=== PATIENT | female | born 1955 | race Caucasian/White ===

== ENCOUNTER 2016-09-11 20:29 | Inpatient (IN) ==
[2016-09-11 22:21] LABS: INR 1.1; Prothrombin Time 12.1 Seconds (9.4-12.1)
[2016-09-11 22:23] LABS: Activated Partial Thrombo Time 24.5 Seconds (26.0-36.0)
[2016-09-11 22:26] LABS: Basophils % 0.3 %; Calcium 10.6 mg/dL (8.6-10.8); Eosinophils # 0.1 K/mcL (0.0-0.6); Hematocrit 36.6 % (35.3-44.9); Hemoglobin 11.8 g/dL (11.5-15.4); Immature Granulocytes % 0.5 % (0-4); Lymphocytes # 0.7 K/mcL (0.6-4.6); Lymphocytes % 7.7 %; Mean Corpuscular HGB Conc 32.2 g/dL (31.6-35.5); Mean Corpuscular Hemoglobin 33.3 pg (28.0-33.3); Mean Corpuscular Volume 103.4 fL (83.0-100.0); Mean Platelet Volume 9.3 fL (9.4-12.4); Monocytes # 0.7 K/mcL (0.0-1.3); Monocytes % 7.8 %; Neutrophils # 7.6 K/mcL (1.6-8.9); Platelet Count 185 K/mcL (140-400); Potassium 4.3 mEq/L (3.5-4.5); Red Blood Count 3.54 M/mcL (3.82-4.97); Red Cell Distribution Width 17.6 % (11.5-14.5); Segmented Neutrophils % 82.7 %
[2016-09-12] MEDS ORDERED: *HR* Heparin 5,000 UNIT/ML VIAL IVP ONE (01:01)
[2016-09-12] MEDS ORDERED: *HR* Heparin 5,000 UNIT/ML VIAL IVP PRN (01:01)
[2016-09-12 01:48] LABS: Bilirubin,Urine Small (Negative); Blood,Urine Large (Negative); Clarity,Urine Turbid (Clear); Color,Urine Yellow (Yellow); Glucose,Urine (UA) Normal (Normal); Ketones,Urine Negative (Negative); Leukocyte Esterase,Urine Large (Negative); Nitrite,Urine Negative (Negative); PH,Urine 6.5 pH Units (5.0-8.0); Protein,Urine 100 mg/dL (Neg-Trace); Specific Gravity,Urine > 1.030 (1.010-1.025); Urobilinogen,Urine Normal (Normal)
[2016-09-12 01:51] LABS: Bacteria,Urine Moderate per hpf (None-Few); Hyaline Casts,Urine None Seen per lpf (None-Few); RBC,Urine TNTC per hpf (0-3); Squamous Epithelial Cell,Urine Many per lpf (None-Few); WBC,Urine TNTC per hpf (0-3)
[2016-09-12] MEDS ORDERED: Piperacillin/Tazobactam 4.5 GM in D5% in Water (Mini-Bag+) 100 ML IVPB ONE (02:56)
[2016-09-12] MEDS: Heparin 25,000 UNIT/500 ML D5W 25,000 UNIT/500 ML MLS IVC SCH ×2 (02:56→21:59)
[2016-09-12] MEDS ORDERED: Naloxone 0.4 MG/ML INJ IVP PRN (04:26)
[2016-09-12] MEDS ORDERED: Ondansetron ODT 4 MG TAB.RAPDIS SL PRN (04:26)
--- NOTE | 2016-09-12 04:35 | Internal Med History&Physical ---
Date of Encounter: 09/12/16 Time of Encounter: 03:50 Assessment and Plan (1) DVT (deep venous thrombosis) Current visit: No Status: Chronic sewer and drain technician called to report what appears to be new DVTs bilaterally in the patient. Started on Heparin drip in the ED. Continue heparin drip. Previously on Eliquis, but states she has not taken any doses for the past two days. Will wait for official US report. Consideration for lovenox bridge to warfarin after procedures are completed. CTA: No evidence of PE to lobar level. The distal pulmonary arteries are suboptimally evaluated. No evidence of acute pulmonary disease. Bilateral subcentimeter pulmonary nodules. Stable from 08/25/16. Persistent peripherally enhancing collection in the right anterior chest wall. Status post right mastectomy. Qualifiers: DVT location: lower extremity Affected thrombotic vein of extremity: femoral Laterality: bilateral Chronicity: unspecified Qualified Code(s): I82.413 - Acute embolism and thrombosis of femoral vein, bilateral (2) Hydronephrosis with renal and ureteral calculous obstruction Current visit: Yes Status: Acute CT demonstrates: Left sided hydronephrosis with stones both in the proximal and distal left ureter. Also stones in left kidney. There is at least mild functional impairment of the left kidney given the delayed contrast excretion. Urothelial enhancement suggests pyelitis. Consult to urology. (3) UTI (urinary tract infection) Current visit: No Status: Acute Patient given a dose of Zosyn in the ED. Blood cultures drawn in the ED. Will give the patient ceftriaxone for continuation of therapy. Urine culture pending. History of culture growing Klebsiella, which was sensitive to ceftriaxone. Qualifiers: Urinary tract infection type: acute cystitis Hematuria presence: without hematuria Qualified Code(s): N30.00 - Acute cystitis without hematuria (4) Breast cancer in female Current visit: No Status: Acute Status post right mastectomy. Most recent chemotherapy was in July. Scheduled to have tumor excisions on Sunday09/13/15 as outpatient with subsequent radiation therapy afterwards. Qualifiers: Breast location: unspecified site of breast Laterality: bilateral Qualified Code(s): C50.911 - Malignant neoplasm of unspecified site of right female breast; C50.912 - Malignant neoplasm of unspecified site of left female breast (5) Diabetes Current visit: No Status: Acute Low dose sliding scale. Patient is NPO Qualifiers: Diabetes mellitus type: type 2 Diabetes mellitus complication status: without complication Diabetes mellitus terminologist insulin use: without correction use Qualified Code(s): E11.9 - Type 2 diabetes mellitus without complications (6) COPD (chronic obstructive pulmonary disease) Current visit: Yes Status: Acute Not in acute exacerbation. albuterol PRN Qualifiers: COPD type: unspecified COPD Qualified Code(s): J44.9 - Chronic obstructive pulmonary disease, unspecified (7) CAD (coronary artery disease) Current visit: Yes Status: Acute Continue pravastatin. Qualifiers: Coronary Disease-Associated Artery/Lesion type: [place] artery [place] vs. transplanted heart: cherokee heart Associated angina: without angina Qualified Code(s): I25.10 - Atherosclerotic heart disease of [place] coronary artery without angina pectoris Internal Medicine - H&P: HPI Chief complaint: left kidney pain Admitted From: Emergency Dept Plans for Post Hospital Care: Home History of present illness: Ms. Dutta is a 61 year old female with PMH significant for previous DVTs, DM, hypothyroidism, breast cancer, HLD, GERD, CHF, COPD, and CAD presented to the emergency department for left kidney pain. She states that the pain started 2 weeks ago with associated symptoms of burning with urination, increased urinary frequency and urinary urgency. She states she has had frequent UTIs in the past. She denies any history of renal stones. She reports intermittent alternating diarrhea and constipation, but states this is chronic. Her left renal pain is described as dull with occasional sharp characteristics and radiates to her groin. She denies chest pain but states that she has felt short of breath. This patient currently has breast cancer with right mastectomy and schedule tumor removal this coming Sunday with scheduled radiation therapy afterwards. She states she was previously on chemotherapy and her most recent dose was in July. The patient is on Eliquis for her history of DVTs, but states she hasn't taken it the past two days due to her friend not being able to pick it up for her. She has not missed any doses prior to that. She does note some increased swelling bilaterally in her lower extremities, but denies any weight change in the past two weeks. Past Med Surg Social Fam HX - Past Medical History Medical history: arthritis, asthma, cancer (breast), CHF, COPD, coronary artery disease, diabetes, fibromyalgia, GERD, hyperlipidemia, hypertension, osteoporosis, thyroid disease, other Psychiatric history: depression - Past Surgical History Surgical History: cholecystectomy, herniorrhaphy, hip replacement, hysterectomy , knee replacement - Social History Smoking Status: Never smoker Smokeless Tobacco Status: No Alcohol use: none Drug use: none - Family History Mother Hx Family Cardiac Disorders: Yes Hx Family Respiratory Disorders: Yes Father Hx Family Cardiac Disorders: Yes Hx Family Respiratory Disorders: Yes Internal Medicine - H&P: Meds Allergies codeine Allergy (Verified 08/30/16 12:06) Vomiting Sulfa (Sulfonamide Antibiotics) Allergy (Verified 08/30/16 12:06) Hives Hydromorphone [From Dilaudid] Adverse Reaction (Verified 08/30/16 12:06) Hypotension morphine Adverse Reaction (Verified 08/30/16 12:06) Difficulty Breathing All Systems PM: A 10-system review of systems was performed and is negative for pertinent findings except as documented above in the HPI. - Constitutional Constitutional: no chills, no fever(s), no night sweats - EENT Eyes: no change in vision, no discharge, no pain, no photophobia Ears: no ear discharge, no ear pain, no tinnitus Nose, mouth and throat: no dysphagia, no nasal discharge, no neck pain, no sore throat - Cardiovascular Cardiovascular ROS IM: edema, no chest pain, no diaphoresis, no lightheadedness , no palpitations, no syncope - Respiratory Respiratory: dyspnea, no cough, no wheezing, no excessive phlegm production - Gastrointestinal Gastrointestinal: constipation, diarrhea, nausea, no abdominal pain, no hematemesis, no hematochezia, no melena, no vomiting - Genitourinary Genitourinary: dysuria, flank pain, urinary frequency, urinary urgency, no change in urinary stream, no hematuria - Musculoskeletal Musculoskeletal ROS IM: no numbness, no tingling - Integumentary Integumentary IM: no rash, no unusual bruising - Neurological Neurological ROS: no confusion, no convulsions, no focal weakness, no numbness, no tingling, no tremor(s) - Hematologic/Lymphatic Hematologic/Lymphatic: no easy bruising - Constitutional Vitals: Temp Pulse Resp BP Pulse Ox 98.8 F 106 16 142/82 96 09/11/16 20:45 09/11/16 20:45 09/12/16 04:24 09/12/16 04:24 09/11/16 20:45 General appearance: Present: A&O X 3, no acute distress - Head Head exam: Present: atraumatic, normocephalic Additional comments: Hair loss secondary to chemotherapy treatments - Eye Eye exam: Present: EOMI, PERRL, conjuntiva pink, sclera anicteric Pupils: Present: PERRL - Neck Neck exam general surgery: Present: supple, trachea midline. Absent: lymphadenopathy - Respiratory Respiratory exam: Present: decreased breath sounds, CTAB. Absent: accessory muscle use, rales, rhonchi, wheezes - Cardiovascular Cardiovascular exam: Present: +S1, +S2, tachycardia. Absent: diastolic murmur, gallop, rubs, systolic murmur - GI/Abdominal GI/Abdominal exam: Present: normal bowel sounds, soft, no peritoneal signs. Absent: distended, tenderness Additional comments: obese - Extremities Exam Extremities exam: Present: pedal edema (bilateral +1), warm, radial pulses palpable and symetrical. Absent: calf tenderness, cyanotic - Back Exam Back exam: Present: CVA tenderness (L) - Neurological Exam Neurological exam: Present: CN II-XII intact, oriented X3, no focal deficits. Absent: facial droop, speech deficit - Skin Skin exam: Present: dry, intact Internal Med - H&P Results - Labs CBC & Chem 7: 09/11/16 22:01 09/11/16 22:01 - Attending Attestation I examined this patient and my medical decision-making was reviewed with the CONSTRUCTION INSPECTOR/PA/Advanced Practice Nurse/Resident Physician. I agree with the documented findings, disposition and treatment plan as described except to the extent set forth below.
[2016-09-12] MEDS ORDERED: D5% in Water 1,000 ML IV PRN (04:57)
[2016-09-12] MEDS ORDERED: *HR* Dextrose 50 % in Water (Syg) 50 ML SYRINGE IVP PRN (04:57)
[2016-09-12] MEDS ORDERED: Dextrose Gel 15 GM PO PRN ×2 (04:57)
[2016-09-12] MEDS: Insulin LISPRO 300 UNITS/3 ML VIAL SQ SCH ×2 (06:54→12:16)
[2016-09-12] MEDS: (Alendronate Sodium [Alendronate Sodium] 70 MG) PO SCH (06:55)
[2016-09-12] MEDS: 0.9 % Sodium Chloride 1,000 ML IVC SCH (06:56)
--- NOTE | 2016-09-12 07:14 | Urology - Consult Note ---
Date of Encounter: 09/12/16 Time of Encounter: 07:12 - Assessment and Plan (1) Left ureteral stone Current Visit: Yes Status: Acute Assessment and plan: 61-year-old woman with a history of a left ureteral stone and evidence of hydronephrosis. Her urine shows evidence of pyuria and hematuria. She has a normal white blood cell count. I recommend cystoscopy with placement of a left ureteral stent. She was informed of the risks of the surgery which include but are not limited to leading, infection, injury to other structures, need for further procedures, stent irritation, and the risk of anesthesia. She is willing to proceed. (2) UTI (urinary tract infection) Current Visit: No Status: Acute Assessment and plan: There is concern for urinary tract infection. We will continue her on ceftriaxone. We will await results of cultures. Currently she is hemodynamically stable. We will closely monitor her. If she develops any fevers or has any evidence of hypotension, we may need to proceed with stent placement at the bedside if OR availability is not forthcoming. Qualifiers: Urinary tract infection type: acute cystitis Hematuria presence: without hematuria Qualified Code(s): N30.00 - Acute cystitis without hematuria Urology CN:HPI Consult date: 09/12/16 Reason for consult Urology: Other (left ureteral stone) Requesting physician: Nico Rebolledo History of present illness: 61-year-old woman presents with a history of left flank pain. She has a known history of breast cancer and thrombosis. She was taking [place], but stopped that. There is concern for new onset DVTs. She is currently on a heparin drip. She noted left flank pain which was sharp and severe. She denies any past history of stones. She came to the emergency department. A CT scan showed evidence of 2 small stones within the left ureter leading to hydronephrosis. She has been admitted for further care. Past Med Surg Social Fam HX - Past Medical History Medical history: arthritis, asthma, cancer, CHF, COPD, diabetes, fibromyalgia, GERD, hyperlipidemia, hypertension, osteoporosis, thyroid disease, other Psychiatric history: anxiety, depression - Past Surgical History Surgical History: cholecystectomy, herniorrhaphy, hip replacement, hysterectomy , knee replacement, other - Social History Smoking Status: Never smoker Smokeless Tobacco Status: No Alcohol use: none Drug use: none - Family History Mother Family Member Ethnicity: Non- Living Status: Age at : 76 Cause of : diabetes, heart disease Hx Family Cardiac Disorders: Yes Hx Family Respiratory Disorders: Yes Father Family Member Ethnicity: Non- Living Status: Age at : 68 Cause of : heart disease Hx Family Cardiac Disorders: Yes Hx Family Respiratory Disorders: Yes Medications and Allergies Allergies codeine Allergy (Verified 08/30/16 12:06) Vomiting Sulfa (Sulfonamide Antibiotics) Allergy (Verified 08/30/16 12:06) Hives Hydromorphone [From Dilaudid] Adverse Reaction (Verified 08/30/16 12:06) Hypotension morphine Adverse Reaction (Verified 08/30/16 12:06) Difficulty Breathing Review of Systems - Constitutional no chills, no fever(s) - EENT Nose, mouth and throat: no dizziness - Cardiovascular no chest pain - Respiratory no dyspnea - Gastrointestinal nausea - Genitourinary Genitourinary: flank pain, no hematuria - Musculoskeletal no back pain - Integumentary no erythema, no rash - Neurological no weakness - Psychiatric no suicidal ideation - Hematologic/Lymphatic no easy bleeding - Allergic/Immunologic no wheezing Exam Initial Vital Signs Temp Pulse Resp BP Pulse Ox 98.8 F 106 16 137/83 96 09/11/16 20:45 09/11/16 20:45 09/11/16 20:45 09/11/16 20:45 09/11/16 20:45 - General physical appearance Present: well developed, well nourished, no distress - Eyes Absent: icteric - ENT Present: normal nares - Neck Present: trachea midline - Respiratory Present: normal respiratory effort - Cardiovascular Cardiovascular exam IM: RRR - Abdomen Abdomen: Present: soft - Integumentary Present: no rash Urology Results - Labs 09/11/16 22:01 09/11/16 22:01 Abnormal lab results RBC 3.54 M/mcL (3.82-4.97) L 09/11/16 22:01 MCV 103.4 fL (83.0-100.0) H 09/11/16 22:01 RDW 17.6 % (11.5-14.5) H 09/11/16 22:01 MPV 9.3 fL (9.4-12.4) L 09/11/16 22:01 APTT 24.5 Seconds (26.0-36.0) L 09/11/16 22:01 D-Dimer 1094 ng/mLFEU (0-500) H 09/11/16 22:01 Creatinine 1.14 mg/dL (0.57-1.11) H 09/11/16 22:01 Est GFR ( Amer) 59 (> 60) L 09/11/16 22:01 Est GFR (Non-Af Amer) 48 (> 60) L 09/11/16 22:01 Glucose 185 mg/dL (70-99) H 09/11/16 22:01 Lactic Acid 2.7 mmol/L (0.5-2.2) H 09/12/16 03:39 Urine Clarity Turbid (Clear) A 09/12/16 01:16 Ur Specific [place] > 1.030 (1.010-1.025) H 09/12/16 01:16 Urine Protein 100 mg/dL (Neg-Trace) H 09/12/16 01:16 Urine Blood Large (Negative) H 09/12/16 01:16 Urine Bilirubin Small (Negative) H 09/12/16 01:16 Ur Leukocyte Esterase Large (Negative) H 09/12/16 01:16 Urine Microscopic RBC TNTC per hpf (0-3) H 09/12/16 01:16 Urine Microscopic WBC TNTC per hpf (0-3) H 09/12/16 01:16 Ur Squamous Epith Cells Many per lpf (None-Few) H 09/12/16 01:16 Urine Bacteria Moderate per hpf (None-Few) H 09/12/16 01:16 Ur Culture Indicated? YES (NO) A 09/12/16 01:16 All other labs normal. - Imaging CT scan - abdomen: report reviewed, image reviewed CT scan - pelvis: report reviewed, image reviewed Consult Discharge Plan - Plan Referrals: NO,PCP [Primary Care Provider] -
--- NOTE | 2016-09-12 08:03 | Emergency Department Note ---
Disposition Clinical Impression: Ureterolithiasis, DVT of axillary vein, acute bilateral Hydronephrosis Qualifiers: Hydronephrosis type: unspecified Qualified Code(s): N13.30 - Unspecified hydronephrosis UTI (urinary tract infection) Qualifiers: Urinary tract infection type: acute cystitis Hematuria presence: without hematuria Qualified Code(s): N30.00 - Acute cystitis without hematuria Disposition: Admitted As Inpatient Condition: Fair Time of Disposition: 00:30 General Adult HPI - General Chief complaint: ED Abdominal Pain Stated complaint: L Kidney Pain Time Seen by Provider: 09/11/16 21:43 Source: patient Limitations: no limitations Nursing Notes Reviewed: Yes Vital Signs Reviewed: Yes - History of Present Illness HPI Narrative: 61-year-old female presents multiple concerns. Patient states that she has difficulty in breathing with exertion over the past few days. Patient reports pleuritic chest pain, worse with exertion. Patient also reports left-sided flank pain as well as abdominal suprapubic pain. Patient was recently treated for urinary tract infection on and off multiple times over the past month. Patient has a history of metastatic breast cancer, last dose of chemotherapy was 2 months ago. Patient reports edema in the bilateral lower extremities similar to her previous DVT. She is currently on Eliquis for anticoagulation. Pain Scale: 0 - Related Data Home Medications Medication Instructions Recorded Confirmed Alendronate Sodium [Alendronate 70 mg PO QWEEK 09/12/16 09/12/16 Sodium] BuPROPion SR (12 HR) [Wellbutrin 150 mg PO DAILY 09/12/16 09/12/16 SR] Cholestyramine (with Sugar) 1 each PO BID 09/12/16 09/12/16 [Cholestyramine Bulk Powder] Citalopram Hydrobromide 20 mg PO BID 09/12/16 09/12/16 [Citalopram HBr] Diphenoxylate HCl/Atropine 1 cap PO Q4H PRN 09/12/16 09/12/16 [Diphenoxylate-Atrop 2.5-0.025] Etodolac [Etodolac] 400 mg PO BID PRN 09/12/16 09/12/16 Gabapentin [Gabapentin] 800 mg PO TID 09/12/16 09/12/16 Magnesium Oxide [Magnesium] 400 mg PO DAILY 09/12/16 09/12/16 Metformin HCl [Metformin HCl ER] 500 mg PO BID 09/12/16 09/12/16 Omeprazole [PriLOSEC] 20 mg PO DAILY 09/12/16 09/12/16 OxyCODONE/APAP 5/325 [Percocet 1 tab PO Q4H PRN 09/12/16 09/12/16 5/325 MG] Pantoprazole Sodium [Protonix] 40 mg PO BID 09/12/16 09/12/16 Phenazopyridine [Pyridium] 100 mg PO TID PRN 09/12/16 09/12/16 Pravastatin Sodium [Pravastatin 40 mg PO DAILY 09/12/16 09/12/16 Sodium] Zolpidem [Ambien] 10 mg PO HS PRN 09/12/16 09/12/16 Allergies Allergy/AdvReac Type Severity Reaction Status Date / Time codeine Allergy Vomiting Verified 08/30/16 12:06 Sulfa (Sulfonamide Allergy Hives Verified 08/30/16 12:06 Antibiotics) Hydromorphone [From Dilaudid] AdvReac Hypotension Verified 08/30/16 12:06 morphine AdvReac Difficulty Verified 08/30/16 12:06 Breathing All systems ED: reviewed and negative except as stated. Constitutional: Denies: fever, chills, weakness Cardiovascular: Reports: chest pain. Denies: palpitations Respiratory: Reports: cough, dyspnea. Denies: wheezes Gastrointestinal: Reports: abdominal pain, nausea Genitourinary: Reports: urgency, dysuria, frequency Musculoskeletal: Reports: back pain Past Medical History - Past Medical History Attestation: Yes The following information was validated with the patient. Source: patient Medical history: Reports: arthritis, asthma, cancer, CHF, COPD, diabetes, fibromyalgia, GERD, hyperlipidemia, hypertension, osteoporosis, thyroid disease , other Surgical history: Reports: cholecystectomy, herniorrhaphy, hip replacement, hysterectomy, knee replacement, other Psychiatric history: Reports: anxiety, depression - Social History Smoking Status: Never smoker Smokeless Tobacco Status: No Alcohol use: Reports: none Drug use: Reports: none Physical Exam General: Alert and in no acute distress Skin: Warm, dry, intact Head: Normocephalic and atraumatic Neck: Supple, trachea midline and no tenderness Cardiovascular: RRR, no murmur, normal perfusion Respiratory: CTAB, no wheezing, cough, or respiratory distress Musculoskeletal: Normal strength, no tenderness, swelling or deformity GI: Soft, tenderness to palpation in suprapubic region without rigidity, guarding, or rebound, nondistended. Bowel sounds present Neuro: A&O to person, place, time and situation. No focal deficits noted on exam Psychiatric: cooperative and appropriate mood and affect. - General Limitations: no limitations General appearance: alert, in no apparent distress Course Vital Signs Temperature 98.8 F 09/11/16 20:45 Pulse Rate 106 09/11/16 20:45 Respiratory Rate 16 09/11/16 20:45 Blood Pressure 137/83 09/11/16 20:45 O2 Sat by Pulse Oximetry 96 09/11/16 20:45 Temperature 99.9 F H 09/12/16 05:38 Pulse Rate 104 09/12/16 05:38 Respiratory Rate 16 09/12/16 05:38 Blood Pressure 123/76 09/12/16 05:38 O2 Sat by Pulse Oximetry 93 L 09/12/16 05:38 Oxygen Delivery Oxygen Delivery Nasal Cannula Medical Decision Making - [facility] Narrative Medical decision making narrative: Events Intern called and stated the patient had new DVT in the bilateral lower extremity. Patient was started on heparin as this means she has failed her Eliquis. Patient also had a ureteral lithiasis with hydronephrosis in the setting of a urinary tract infection. Patient was started on IV antibiotics and admitted to the hospital. Patient felt comfortable with plan of action. Patient was accepted to the hospitalist service - Medical Records Medical records reviewed: Yes I reviewed the patient's medical records. - Lab Data Lab results reviewed: Yes I reviewed the patient's lab results. Result diagrams: 09/11/16 22:01 09/11/16 22:01 Lab Results 09/11/16 09/11/16 09/11/16 Range/Units 22:01 22:01 22:01 WBC 9.2 (4.3-11.1) K/mcL RBC 3.54 L (3.82-4.97) M/mcL Hgb 11.8 (11.5-15.4) g/dL Hct 36.6 (35.3-44.9) % MCV 103.4 H (83.0-100.0) fL MCH 33.3 (28.0-33.3) pg MCHC 32.2 (31.6-35.5) g/dL RDW 17.6 H (11.5-14.5) % Plt Count 185 (140-400) K/mcL MPV 9.3 L (9.4-12.4) fL Immature Gran % 0.5 (0-4) % Seg Neutrophils % 82.7 % Lymphocytes % 7.7 % Monocytes % 7.8 % Eosinophils % 1.0 % Basophils % 0.3 % Neutrophils # 7.6 (1.6-8.9) K/mcL Lymphocytes # 0.7 (0.6-4.6) K/mcL Monocytes # 0.7 (0.0-1.3) K/mcL Eosinophils # 0.1 (0.0-0.6) K/mcL Basophils # 0.0 (0.0-0.2) K/mcL PT 12.1 (9.4-12.1) Seconds INR 1.1 APTT 24.5 L (26.0-36.0) Seconds D-Dimer 1094 H (0-500) ng/mLFEU Sodium (136-145) mEq/L Potassium (3.5-4.5) mEq/L Chloride (98-109) mEq/L Carbon Dioxide (19-29) mEq/L BUN (7-20) mg/dL Creatinine (0.57-1.11) mg/dL Est GFR ( Amer) (> 60) Est GFR (Non-Af Amer) (> 60) BUN/Creatinine Ratio (6-26) Glucose (70-99) mg/dL Calculated Osmolality (280-300) Lactic Acid (0.5-2.2) mmol/L Calcium (8.6-10.8) mg/dL Troponin I (0-0.03) ng/mL B-Natriuretic Peptide (0-100) pg/mL Urine Color (Yellow) Urine Clarity (Clear) Urine pH (5.0-8.0) pH Units Ur Specific [place] (1.010-1.025) Urine Protein (Neg-Trace) mg/dL Urine Glucose (UA) (Normal) mg/dL Urine Ketones (Negative) mg/dL Urine Blood (Negative) Urine Nitrite (Negative) Urine Bilirubin (Negative) Urine Urobilinogen (Normal) mg/dL Ur Leukocyte Esterase (Negative) Urine Microscopic RBC (0-3) per hpf Urine Microscopic WBC (0-3) per hpf Ur Squamous Epith Cells (None-Few) per lpf Urine Bacteria (None-Few) per hpf Hyaline Casts (None-Few) per lpf Ur Culture Indicated? (NO) 09/11/16 09/11/16 09/11/16 Range/Units 22:01 22:01 22:01 WBC (4.3-11.1) K/mcL RBC (3.82-4.97) M/mcL Hgb (11.5-15.4) g/dL Hct (35.3-44.9) % MCV (83.0-100.0) fL MCH (28.0-33.3) pg MCHC (31.6-35.5) g/dL RDW (11.5-14.5) % Plt Count (140-400) K/mcL MPV (9.4-12.4) fL Immature Gran % (0-4) % Seg Neutrophils % % Lymphocytes % % Monocytes % % Eosinophils % % Basophils % % Neutrophils # (1.6-8.9) K/mcL Lymphocytes # (0.6-4.6) K/mcL Monocytes # (0.0-1.3) K/mcL Eosinophils # (0.0-0.6) K/mcL Basophils # (0.0-0.2) K/mcL PT (9.4-12.1) Seconds INR APTT (26.0-36.0) Seconds D-Dimer (0-500) ng/mLFEU Sodium 138 (136-145) mEq/L Potassium 4.3 (3.5-4.5) mEq/L Chloride 102 (98-109) mEq/L Carbon Dioxide 23 (19-29) mEq/L BUN 14 (7-20) mg/dL Creatinine 1.14 H (0.57-1.11) mg/dL Est GFR ( Amer) 59 L (> 60) Est GFR (Non-Af Amer) 48 L (> 60) BUN/Creatinine Ratio 12 (6-26) Glucose 185 H (70-99) mg/dL Calculated Osmolality 291 (280-300) Lactic Acid (0.5-2.2) mmol/L Calcium 10.6 (8.6-10.8) mg/dL Troponin I 0.01 (0-0.03) ng/mL B-Natriuretic Peptide 13 (0-100) pg/mL Urine Color (Yellow) Urine Clarity (Clear) Urine pH (5.0-8.0) pH Units Ur Specific [place] (1.010-1.025) Urine Protein (Neg-Trace) mg/dL Urine Glucose (UA) (Normal) mg/dL Urine Ketones (Negative) mg/dL Urine Blood (Negative) Urine Nitrite (Negative) Urine Bilirubin (Negative) Urine Urobilinogen (Normal) mg/dL Ur Leukocyte Esterase (Negative) Urine Microscopic RBC (0-3) per hpf Urine Microscopic WBC (0-3) per hpf Ur Squamous Epith Cells (None-Few) per lpf Urine Bacteria (None-Few) per hpf Hyaline Casts (None-Few) per lpf Ur Culture Indicated? (NO) 09/12/16 09/12/16 Range/Units 01:16 03:39 WBC (4.3-11.1) K/mcL RBC (3.82-4.97) M/mcL Hgb (11.5-15.4) g/dL Hct (35.3-44.9) % MCV (83.0-100.0) fL MCH (28.0-33.3) pg MCHC (31.6-35.5) g/dL RDW (11.5-14.5) % Plt Count (140-400) K/mcL MPV (9.4-12.4) fL Immature Gran % (0-4) % Seg Neutrophils % % Lymphocytes % % Monocytes % % Eosinophils % % Basophils % % Neutrophils # (1.6-8.9) K/mcL Lymphocytes # (0.6-4.6) K/mcL Monocytes # (0.0-1.3) K/mcL Eosinophils # (0.0-0.6) K/mcL Basophils # (0.0-0.2) K/mcL PT (9.4-12.1) Seconds INR APTT (26.0-36.0) Seconds D-Dimer (0-500) ng/mLFEU Sodium (136-145) mEq/L Potassium (3.5-4.5) mEq/L Chloride (98-109) mEq/L Carbon Dioxide (19-29) mEq/L BUN (7-20) mg/dL Creatinine (0.57-1.11) mg/dL Est GFR ( Amer) (> 60) Est GFR (Non-Af Amer) (> 60) BUN/Creatinine Ratio (6-26) Glucose (70-99) mg/dL Calculated Osmolality (280-300) Lactic Acid 2.7 H (0.5-2.2) mmol/L Calcium (8.6-10.8) mg/dL Troponin I (0-0.03) ng/mL B-Natriuretic Peptide (0-100) pg/mL Urine Color Yellow (Yellow) Urine Clarity Turbid A (Clear) Urine pH 6.5 (5.0-8.0) pH Units Ur Specific [place] > 1.030 H (1.010-1.025) Urine Protein 100 H (Neg-Trace) mg/dL Urine Glucose (UA) Normal (Normal) mg/dL Urine Ketones Negative (Negative) mg/dL Urine Blood Large H (Negative) Urine Nitrite Negative (Negative) Urine Bilirubin Small H (Negative) Urine Urobilinogen Normal (Normal) mg/dL Ur Leukocyte Esterase Large H (Negative) Urine Microscopic RBC TNTC H (0-3) per hpf Urine Microscopic WBC TNTC H (0-3) per hpf Ur Squamous Epith Cells Many H (None-Few) per lpf Urine Bacteria Moderate H (None-Few) per hpf Hyaline Casts None Seen (None-Few) per lpf Ur Culture Indicated? YES A (NO) - Radiology Data Radiology results reviewed: Yes I reviewed the patient's radiology results. - EKG Data EKG #1 EKG attestation: Yes I reviewed and interpreted this EKG. EKG results narrative: ECG - interpreted by ED physician. Rate 103 sinus tachycardia, no STEMI, KS, QT intervals, and QRS within normal limits
[2016-09-12] MEDS: Ondansetron 4 MG/2 ML VIAL IV PRN (09:35)
[2016-09-12] MEDS: *HR* Metformin 500 MG TABLET PO SCH ×2 (09:38→20:59)
[2016-09-12] MEDS: Gabapentin 400 MG CAPSULE PO SCH ×3 (09:38→21:00)
[2016-09-12] MEDS: BuPROPion XL (24 HR) 150 MG TABLET PO SCH (09:38)
[2016-09-12] MEDS: Pantoprazole 40 MG VIAL IVP SCH (10:33)
[2016-09-12 10:39] LABS: Activated Partial Thrombo Time 143.5 Seconds (26.0-36.0)
[2016-09-12 10:55] LABS: Heparin anti-factor XA UFH 1.11 IU/mL (0.30-0.70)
--- NOTE | 2016-09-12 13:42 | Urology Procedure Note ---
Date of Encounter: 09/12/16 Time of Encounter: 13:39 Procedures:Urology - Cystoscopy Time out performed: Yes Prophylactic Antibiotics Given: Yes Reason for Cystoscopy: left ureteral stone Preparation: Povidone-Iodine Irrigation Fluid Used: Yes Anesthetic Used: lidocaine 1% Additional comments: 61-year-old woman with a history of a left ureteral stone and hydronephrosis. She has concern for urinary tract infection. OR availability was not forthcoming and she elected to undergo a bedside stent placement on the left side. She was aware of the risks of the procedure including but not limited to bleeding, infection, injury to other structures, need for further procedures, and risks otherwise unforeseen. Under sterile conditions flexible cystoscopy was performed. The anterior urethra was unremarkable. The bladder appeared edematous. The ureteral orifices when the normal orthotopic position. The left ureteral orifice was cannulated with a Glidewire and this was gently moved past the stone and brought into the kidney. Interment x-rays were obtained to confirm position of the wire. The 6 [place] by 26 cm double-J stent was then placed with a good curl seen within the kidney and the bladder. I did have some difficulty getting the stent in place, but after some readjustment there seemed to be a good curl in the kidney and the bladder. The dangle string was removed. She tolerated the procedure well. I anticipate that she will have fevers after this procedure given the ureteral manipulation.
[2016-09-12] MEDS ORDERED: Diphenoxylate/Atropine 1 TAB TABLET PO PRN (13:57)
--- NOTE | 2016-09-12 14:06 | Internal Med Progress Note ---
Date of Encounter: 09/12/16 Time of Encounter: 09:00 - Assessment and plan (1) Ureterolithiasis Current Visit: Yes Status: Acute Assessment and plan: Had a urology procedure done. Continue pain management. (2) Hydronephrosis Current Visit: Yes Status: Acute Assessment and plan: Patient has hydronephrosis, which is caused by ureteral stone. Urology on case and did the stenting. Qualifiers: Hydronephrosis type: with ureteral calculous obstruction Qualified Code(s) : N13.2 - Hydronephrosis with renal and ureteral calculous obstruction (3) CAD (coronary artery disease) Current Visit: Yes Status: Acute Assessment and plan: Stable. Continue home medication. Qualifiers: Coronary Disease-Associated Artery/Lesion type: [place] artery [place] vs. transplanted heart: [place] heart Associated angina: without angina Qualified Code(s): I25.10 - Atherosclerotic heart disease of [place] coronary artery without angina pectoris (4) Breast cancer in female Current Visit: No Status: Acute Assessment and plan: Patient was diagnosed breast cancer. She had a surgery in December 2015. She has been following oncology in [place] Qualifiers: Breast location: unspecified site of breast Laterality: right Qualified Code(s): C50.911 - Malignant neoplasm of unspecified site of right female breast (5) Diabetes Current Visit: No Status: Acute Assessment and plan: We will cover patient with a sliding scale. Qualifiers: Diabetes mellitus type: type 2 Diabetes mellitus complication status: without complication Diabetes mellitus diamond expert insulin use: without diamond expert use Qualified Code(s): E11.9 - Type 2 diabetes mellitus without complications (6) DVT (deep venous thrombosis) Current Visit: No Status: Chronic Assessment and plan: Patient was reported DVT. She has history of DVT and was on Eliquis. Keep patient on heparin drip for now. Wait for the formal report of duplex legs. Oncology consult. Patient is at high risk because she is on heparin drip, which needed close monitoring. Qualifiers: DVT location: lower extremity Affected thrombotic vein of extremity: femoral Laterality: bilateral Chronicity: unspecified Qualified Code(s): I82.413 - Acute embolism and thrombosis of femoral vein, bilateral (7) Urinary tract infection Current Visit: No Status: Resolved Assessment and plan: On Rocephin IV. Follow-up urine culture Qualifiers: Urinary tract infection type: acute cystitis Qualified Code(s): N30.00 - Acute cystitis without hematuria (8) DVT prophylaxis Current Visit: Yes Status: Acute Assessment and plan: Patient is on heparin drip for now. - Subjective Interval history: Patient is a 61-year-old female admitted for left flank pain. She was found left ureteral stone. Her past medical history is significant for asthma, breast cancer, CHF, COPD, CAD, diabetes, fibromyalgia, hyperlipidemia, hypertension, osteoporosis, thyroid disease. Patient was seen and examined. She still complains of left flank pain. No nausea no vomiting. Urology consult appreciated. Patient had urology procedure (stent). We will continue IV Rocephin. Patient was found DVT by US, will continue IV heparin drip. - Constitutional Vitals: Temp Pulse Resp BP Pulse Ox 100.1 F H 97 18 132/69 93 L 09/12/16 11:00 09/12/16 11:00 09/12/16 11:00 09/12/16 11:00 09/12/16 11:00 General appearance: Present: A&O X 3, no acute distress - Head Head exam: Present: atraumatic, normocephalic - Eye Eye exam: Present: PERRL, conjuntiva pink, sclera anicteric Pupils: Present: PERRL - Neck Neck exam general surgery: Present: supple, trachea midline. Absent: lymphadenopathy - Respiratory Respiratory exam: Present: CTAB. Absent: accessory muscle use, rales, rhonchi, wheezes - Cardiovascular Cardiovascular exam: Present: RRR, +S1, +S2. Absent: diastolic murmur, gallop, rubs, systolic murmur - GI/Abdominal GI/Abdominal exam: Present: normal bowel sounds, soft, no peritoneal signs. Absent: distended, tenderness - Extremities Exam Extremities exam: Present: calf tenderness (Calf tenderness bilaterally), warm, radial pulses palpable and symetrical. Absent: cyanotic, pedal edema - Neurological Exam Neurological exam: Present: CN II-XII intact, oriented X3, no focal deficits. Absent: pronater drift, facial droop, speech deficit - Skin Skin exam: Present: dry, intact Internal Medicine: Result - Labs CBC & Chem 7: 09/11/16 22:01 09/11/16 22:01 - ABG Interpretation ABG results: PT/INR, D-dimer PT 12.1 Seconds (9.4-12.1) 09/11/16 22:01 D-Dimer 1094 ng/mLFEU (0-500) H 09/11/16 22:01 - Impressions Impressions KUB X-Ray 09/12/16 10:53 IMPRESSION: Right ureteral catheter is noted. D/ / Joel Carbone MD / Joel Carbone MD Interpreting Provider: Joel Carbone MD Consult Discharge Plan - Plan Referrals: NO,PCP [Primary Care Provider] -
[2016-09-12] MEDS: Acetaminophen 325 MG TABLET PO PRN (14:14)
--- NOTE | 2016-09-12 14:48 | Electrocardiograph Report ---
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
[2016-09-12] MEDS ORDERED: Gabapentin 400 MG CAPSULE PO SCH (15:00)
[2016-09-12] MEDS ORDERED: Insulin LISPRO 300 UNITS/3 ML VIAL SQ SCH ×2 (17:00→21:00)
--- NOTE | 2016-09-12 17:59 | Oncology Inp Consult Note ---
<Tisha Mcclain E - Last Filed: 09/12/16 18:02> Date of Encounter: 09/12/16 Time of Encounter: 16:00 Assessment and Plan (1) Multiple skin nodules Status: Acute Assessment and plan: She will follow-up with Dr. Billie Barksdale and [place] after discharge (2) DVT (deep venous thrombosis) Status: Chronic Assessment and plan: Pulmonary report indicated new DVT in bilateral lower extremities. The patient has been on Eliquis since July 2016 however she was off this medication to have the breast biopsy, she also reports that she has not taken Eliquis for the last 3 or so days. Dates she ran out of this medication and just did not get it filled. Being that she has not taken this medication regularly most recently it is difficult to determine whether or not this is actually a failure of this medication. Qualifiers: DVT location: lower extremity Affected thrombotic vein of extremity: femoral Laterality: bilateral Chronicity: unspecified Qualified Code(s): I82.413 - Acute embolism and thrombosis of femoral vein, bilateral - Data of Consult Patient: known to practice within the last 3 years Consult date: 09/12/16 Requesting Physician: Alfonzo Echeverria MD Primary Care Provider: PCP NO - Consult Narrative Reason for consult: progressive breast cancer with "new" DVT bilateral lower extremities History of present illness: Ms. Dutta is a 61 year old female was recently admitted to [facility] with left hydronephrosis, with stones in the proximal and distal left ureter, pyletis, urinary tract infection, and pulmonary report of Doppler performed today that indicated pulmonary report of new DVT in bilateral lower extremities. The official report was not available. This patient was well known to our clinic she was a patient of Dr. Delta Cage. Oncology history: In December 2015 she had a bilateral digital diagnostic mammogram and ultrasound secondary to self palpated a right painful breast lesion. She was seen by Dr. Billie Hurtado and had a fine-needle aspiration of a suspicious right axillary lymph node as well as right breast. This demonstrated a poorly differentiated adenocarcinoma which was ER negative, MN negative and HER-2 negative-triple negative. In December 2015 she had bilateral breast MRI that demonstrated a 11 x 6.5 x 6 cm area extending from the subareolar right breast laterally into the 7 to 10:00 region. There were additional satellite lesions extending superficially into the fat. And a 2 cm right axillary lymph node enhancing which was compatible with no disease. She did have a CT of the chest abdomen and pelvis in December 2015 that indicated a fatty liver but no metastatic disease. She received neoadjuvant chemotherapy but secondary to severe toxicities including diarrhea, mucositis and severe cytopenias which required maximal dose reductions. With therapy agent she received were carboplatin and Taxol. Her oncology and be reviewed for further information regarding her neoadjuvant therapy. In April 2016 she had a right mastectomy and axillary dissection that pathology indicated invasive ductal carcinoma with maximal tumor dimension of 11 cm. It was a grade 3 and it was triple negative. 7 of 11 lymph nodes were positive. 06/12/2016 she started adjuvant chemotherapy which she received FEC this was complicated by mucositis, DVT and cytopenias. 07/03/2016 she received cycle 2 FEC with dose reductions including decreasing Neulasta 3 mg. 07/24/2016 she received cycle 3 of FEC. On 08/29/2016 she had biopsy of the right chest wall nodule. At this time of her visit on 08/05/2017 at the cancer Center she was found to have 4 nodules in the right chest wall. We did call Dr. Chantale Hurtado's office for pathology report however we have not received that information. The patient does report that she was told that she had recurrent cancer and was supposed to have those nodules removed on 09/13/2016 followed by radiation to the area. Initial Doppler study was completed on 06/19/2016 indicated left lower extremity -left common femoral and left popliteal and compressible veins and left superficial femoral partially compressible vein. Indicating a acute thrombosis in areas. At that time she was started on Lovenox. On 05/11/2016 this was changed to eliquis was 5 mg twice a day. She does report that for the last 3 or so days she has not taken a look was. Her friend who is with her stated that she ran out of the medication just did not get it refilled so has not for certain that this is a failure of Eliquis. Past Med Surg Social Fam HX - Past Medical History Medical history: arthritis, asthma, cancer, CHF, COPD, diabetes, fibromyalgia, GERD, hyperlipidemia, hypertension, osteoporosis, thyroid disease, other ( Thyroidism, osteoarthritis, osteoporosis, gastroesophageal reflux disease, chronic obstructive pulmonary disease, chronic low back pain, lumbar central stenosis with degenerative disc disease, congestive heart failure, polymyalgia, hypertension, hyperlipidemia, and progressive breast cancer.) Psychiatric history: anxiety, depression - Past Surgical History Surgical History: cholecystectomy, herniorrhaphy, hip replacement, hysterectomy (Nominal hysterectomy and BSO), knee replacement, other (Bladder lift, rectal surgery repair of the sphincter.) - Social History Smoking Status: Never smoker Smokeless Tobacco Status: No Alcohol use: none Drug use: none Current living situation: Home Recent Out of Country Travel Within the Last 8 Weeks: No Exposure or Possible Exposure to Illness During Travel: No - Family History Mother Family Member Ethnicity: Non- Living Status: Age at : 76 Cause of : diabetes, heart disease Hx Family Cardiac Disorders: Yes Hx Family Respiratory Disorders: Yes Hx Family Cancer: Yes (Breast cancer and leukemia) Father History Unknown: Yes (Heart disease, hypertension, diabetes, emphysema, and kidney cancer.) Family Member Ethnicity: Non- Living Status: Age at : 68 Cause of : heart disease Hx Family Cardiac Disorders: Yes Hx Family Respiratory Disorders: Yes Medications and Allergies Alendronate Sodium [Alendronate Sodium] 70 mg PO QWEEK 09/12/16 [History] BuPROPion SR (12 HR) [Wellbutrin SR] 150 mg PO DAILY 09/12/16 [History] Cholestyramine (with Sugar) [Cholestyramine Bulk Powder] 1 each PO BID 09/12/16 [History] Citalopram Hydrobromide [Citalopram HBr] 20 mg PO BID 09/12/16 [History] Diphenoxylate HCl/Atropine [Diphenoxylate-Atrop 2.5-0.025] 1 cap PO Q4H PRN 06/19 [History] Etodolac [Etodolac] 400 mg PO BID PRN 09/12/16 [History] Gabapentin [Gabapentin] 800 mg PO TID 09/12/16 [History] Magnesium Oxide [Magnesium] 400 mg PO DAILY 09/12/16 [History] Metformin HCl [Metformin HCl ER] 500 mg PO BID 09/12/16 [History] Omeprazole [PriLOSEC] 20 mg PO DAILY 09/12/16 [History] OxyCODONE/APAP 5/325 [Percocet 5/325 MG] 1 tab PO Q4H PRN 09/12/16 [History] Pantoprazole Sodium [Protonix] 40 mg PO BID 09/12/16 [History] Phenazopyridine [Pyridium] 100 mg PO TID PRN 09/12/16 [History] Pravastatin Sodium [Pravastatin Sodium] 40 mg PO DAILY 09/12/16 [History] Zolpidem [Ambien] 10 mg PO HS PRN 09/12/16 [History] Allergies codeine Allergy (Verified 08/30/16 12:06) Vomiting Sulfa (Sulfonamide Antibiotics) Allergy (Verified 08/30/16 12:06) Hives Hydromorphone [From Dilaudid] Adverse Reaction (Verified 08/30/16 12:06) Hypotension morphine Adverse Reaction (Verified 08/30/16 12:06) Difficulty Breathing Constitutional: Present: fatigue Breasts: Present: other (5 new skin nodules in the right mastectomy site.) Genitourinary: Present: other (Flank pain radiating to the bladder area) Musculoskeletal: Present: other (Increased swelling, redness and warmth of bilateral lower legs.) Oncology - Exam - Constitutional Vitals: Temp Pulse Resp BP Pulse Ox 99.1 F 74 16 122/78 96 09/12/16 15:00 09/12/16 15:00 09/12/16 15:00 09/12/16 15:00 09/12/16 15:00 General appearance: cooperative, morbidly obese, no acute distress - Head Head exam: Present: normocephalic (With alopecia secondary to chemotherapy) - Respiratory Respiratory exam: Present: CTAB - Cardiovascular Cardiovascular exam: Present: RRR - GI/Abdominal GI/Abdominal exam: Present: normal bowel sounds, soft - Extremities Exam Additional comments: Bilateral lower extremity edema with erythema and increased warmth to touch. - Skin Skin exam: Present: pallor Additional comments: 5 palpable skin nodules in the right mastectomy site. Oncology - Results - Labs Labs: Laboratory Results - last 24 hr 09/11/16 09/11/16 09/11/16 22:01 22:01 22:01 WBC 9.2 RBC 3.54 L Hgb 11.8 Hct 36.6 MCV 103.4 H MCH 33.3 MCHC 32.2 RDW 17.6 H Plt Count 185 MPV 9.3 L Immature Gran % 0.5 Seg Neutrophils % 82.7 Lymphocytes % 7.7 Monocytes % 7.8 Eosinophils % 1.0 Basophils % 0.3 Neutrophils # 7.6 Lymphocytes # 0.7 Monocytes # 0.7 Eosinophils # 0.1 Basophils # 0.0 PT 12.1 INR 1.1 APTT 24.5 L D-Dimer 1094 H Heparin Anti-Xa, Unfract Sodium Potassium Chloride Carbon Dioxide BUN Creatinine Est GFR ( Amer) Est GFR (Non-Af Amer) BUN/Creatinine Ratio Glucose POC Glucose Calculated Osmolality Lactic Acid Calcium Troponin I B-Natriuretic Peptide Urine Color Urine Clarity Urine pH Ur Specific [place] Urine Protein Urine Glucose (UA) Urine Ketones Urine Blood Urine Nitrite Urine Bilirubin Urine Urobilinogen Ur Leukocyte Esterase Urine Microscopic RBC Urine Microscopic WBC Ur Squamous Epith Cells Urine Bacteria Hyaline Casts Ur Culture Indicated? 09/11/16 09/11/16 09/11/16 22:01 22:01 22:01 WBC RBC Hgb Hct MCV MCH MCHC RDW Plt Count MPV Immature Gran % Seg Neutrophils % Lymphocytes % Monocytes % Eosinophils % Basophils % Neutrophils # Lymphocytes # Monocytes # Eosinophils # Basophils # PT INR APTT D-Dimer Heparin Anti-Xa, Unfract Sodium 138 Potassium 4.3 Chloride 102 Carbon Dioxide 23 BUN 14 Creatinine 1.14 H Est GFR ( Amer) 59 L Est GFR (Non-Af Amer) 48 L BUN/Creatinine Ratio 12 Glucose 185 H POC Glucose Calculated Osmolality 291 Lactic Acid Calcium 10.6 Troponin I 0.01 B-Natriuretic Peptide 13 Urine Color Urine Clarity Urine pH Ur Specific [place] Urine Protein Urine Glucose (UA) Urine Ketones Urine Blood Urine Nitrite Urine Bilirubin Urine Urobilinogen Ur Leukocyte Esterase Urine Microscopic RBC Urine Microscopic WBC Ur Squamous Epith Cells Urine Bacteria Hyaline Casts Ur Culture Indicated? 09/12/16 09/12/16 09/12/16 01:16 03:39 06:54 WBC RBC Hgb Hct MCV MCH MCHC RDW Plt Count MPV Immature Gran % Seg Neutrophils % Lymphocytes % Monocytes % Eosinophils % Basophils % Neutrophils # Lymphocytes # Monocytes # Eosinophils # Basophils # PT INR APTT D-Dimer Heparin Anti-Xa, Unfract Sodium Potassium Chloride Carbon Dioxide BUN Creatinine Est GFR ( Amer) Est GFR (Non-Af Amer) BUN/Creatinine Ratio Glucose POC Glucose 226 H Calculated Osmolality Lactic Acid 2.7 H Calcium Troponin I B-Natriuretic Peptide Urine Color Yellow Urine Clarity Turbid A Urine pH 6.5 Ur Specific [place] > 1.030 H Urine Protein 100 H Urine Glucose (UA) Normal Urine Ketones Negative Urine Blood Large H Urine Nitrite Negative Urine Bilirubin Small H Urine Urobilinogen Normal Ur Leukocyte Esterase Large H Urine Microscopic RBC TNTC H Urine Microscopic WBC TNTC H Ur Squamous Epith Cells Many H Urine Bacteria Moderate H Hyaline Casts None Seen Ur Culture Indicated? YES A 09/12/16 09/12/16 09/12/16 09:28 11:30 14:50 WBC RBC Hgb Hct MCV MCH MCHC RDW Plt Count MPV Immature Gran % Seg Neutrophils % Lymphocytes % Monocytes % Eosinophils % Basophils % Neutrophils # Lymphocytes # Monocytes # Eosinophils # Basophils # PT INR APTT 143.5 H* D 91.9 H D-Dimer Heparin Anti-Xa, Unfract 1.11 H* Sodium Potassium Chloride Carbon Dioxide BUN Creatinine Est GFR ( Amer) Est GFR (Non-Af Amer) BUN/Creatinine Ratio Glucose POC Glucose 250 H Calculated Osmolality Lactic Acid Calcium Troponin I B-Natriuretic Peptide Urine Color Urine Clarity Urine pH Ur Specific [place] Urine Protein Urine Glucose (UA) Urine Ketones Urine Blood Urine Nitrite Urine Bilirubin Urine Urobilinogen Ur Leukocyte Esterase Urine Microscopic RBC Urine Microscopic WBC Ur Squamous Epith Cells Urine Bacteria Hyaline Casts Ur Culture Indicated? 09/12/16 15:52 WBC RBC Hgb Hct MCV MCH MCHC RDW Plt Count MPV Immature Gran % Seg Neutrophils % Lymphocytes % Monocytes % Eosinophils % Basophils % Neutrophils # Lymphocytes # Monocytes # Eosinophils # Basophils # PT INR APTT D-Dimer Heparin Anti-Xa, Unfract Sodium Potassium Chloride Carbon Dioxide BUN Creatinine Est GFR ( Amer) Est GFR (Non-Af Amer) BUN/Creatinine Ratio Glucose POC Glucose 223 H Calculated Osmolality Lactic Acid Calcium Troponin I B-Natriuretic Peptide Urine Color Urine Clarity Urine pH Ur Specific [place] Urine Protein Urine Glucose (UA) Urine Ketones Urine Blood Urine Nitrite Urine Bilirubin Urine Urobilinogen Ur Leukocyte Esterase Urine Microscopic RBC Urine Microscopic WBC Ur Squamous Epith Cells Urine Bacteria Hyaline Casts Ur Culture Indicated? Consult Discharge Plan - Plan Referrals: Sidra Cesar MD [Non-Partnered Physician] - 09/21/16 11:00 am Attestation: My signature below is to certify that this patient is under my care and that I, or nurse practitioner, or a physician's commercial lines assistant working with me, has a face-to -face encounter with this patient. <Aaron Batista Poonam - Last Filed: 09/13/16 15:42> Date of Encounter: 09/12/16 - Data of Consult Requesting Physician: Alfonzo Echeverria MD Primary Care Provider: PCP NO - Consult Narrative History of present illness: I saw and personally examined Ms. Dutta at her bedside today and reviewed the chart for details of ongoing care by hospital team. I verified/agree with the history and physical exam findings documented by Sharonda Mcclain CNP above. She is a known patient to our practice has been established for ongoing management of triple negative breast cancer under care of Dr. Devlin. She will be transitioning her care to [facility] for continued follow-up with Dr. Devlin who has recently left the practice. She has a history of bilateral lower extremity DVT that was initially diagnosed in June 2016 and has been on Apixaban for the last several months. She is currently hospitalized with left-sided ureter stones associated with hydronephrosis after presenting with intractable abdominal pain and leg swelling. She has had a stent placed by Dr. Seay with urology. Extremity Doppler on admission noted acute DVT involving right superficial femoral, popliteal veins. Acute DVT involving the left common femoral vein. From reviewing her records, lower extremity Doppler dated 06/19/16 reported DVT in the right superficial femoral vein, popliteal vein. DVT left common femoral, superficial femoral, popliteal veins. Additionally, she is presently undergoing evaluation for possible breast cancer recurrence while on adjuvant chemotherapy. She is being evaluated by Dr. Chantale Hurtado and will be having surgery in the near future. Patient reports feeling better this morning. Presenting symptoms of abdominal pain significantly improved. No extremity swelling significantly improved. As noted above, she admits poor compliance with her medication. She recently ran out of Apixaban for the last several days and has yet to get her medication refills. Vital signs are stable. I confirmed systems exam documented above. I personally reviewed and interpreted patient's most recent imaging studies dated 09/21/16. I discussed the findings with the patient daily today. CT angiogram on admission negative for PE. CT abdomen and pelvis positive for left-sided hydronephrosis associated with ureteric stone. Radiographic appearance suspicious for Pyelitis. DVT: Radiographic distribution of current DVT appears similar to that from June 2016 and I'm not certain that she hasn't no DVT at this point. Current Doppler study actually appears improved versus previous and I suspect that her clot is steadily improving as expected. Based on above, we'll recommend to resume Apixaban as she was doing prior to this hospital admission. She is currently on heparin drip and that can be discontinued once Apixaban is resumed. Breast cancer: She has established follow-up with Dr. chantale Hurtado and Dr. Devlin. I'm hoping that she can be discharged at the earliest possible to allow her own for her upcoming surgery for recurrent breast cancer while on adjuvant chemotherapy. She will be continuing her oncologic follow-up with Dr. Devlin at [facility] and already has an appointment for 09/20/16. We will follow her along with you during his hospitalization but please do not hesitate to call regarding interval oncologic questions that may arise. Thank you for involving us in her care while in house. Oncology - Exam - Constitutional Vitals: Temp Pulse Resp BP Pulse Ox 98.1 F 85 16 93/60 98 09/13/16 10:54 09/13/16 10:54 09/13/16 10:54 09/13/16 10:54 09/13/16 10:54 Oncology - Results - Labs Labs: Short CBC 09/13/16 Range/Units Unknown WBC 8.7 (4.3-11.1) K/mcL Hgb 9.8 L D (11.5-15.4) g/dL Hct 29.7 L (35.3-44.9) % Plt Count 119 L (140-400) K/mcL Neutrophils # 7.7 (1.6-8.9) K/mcL BMP 09/13/16 Unknown Sodium 137 Potassium 3.8 Chloride 103 Carbon Dioxide 20 BUN 17 Creatinine 2.24 H D Glucose 245 H Calcium 9.1 Attestation: My signature below is to certify that this patient is under my care and that I, or nurse practitioner, or a physician's commercial lines assistant working with me, has a face-to -face encounter with this patient.
[2016-09-12] MEDS: Cholestyramine 4 GM POWD.PACK PO SCH (21:00)
[2016-09-13] MEDS: 0.9 % Sodium Chloride 1,000 ML IVC SCH ×2 (01:12→12:09)
[2016-09-13 04:05] LABS: Hematocrit 29.7 % (35.3-44.9); Mean Corpuscular Volume 103.1 fL (83.0-100.0); Platelet Count 119 K/mcL (140-400); Red Blood Count 2.88 M/mcL (3.82-4.97); Red Cell Distribution Width 17.5 % (11.5-14.5)
[2016-09-13 04:08] LABS: Hemoglobin 9.8 g/dL (11.5-15.4)
[2016-09-13 04:19] LABS: Calcium 9.1 mg/dL (8.6-10.8); Potassium 3.8 mEq/L (3.5-4.5)
[2016-09-13 04:33] LABS: Anisocytosis 1+ (Not Present); Basophils # 0.2 K/mcL (0.0-0.2); Lymphocytes # 0.2 K/mcL (0.6-4.6); Macrocytosis Present (Not Present); Monocytes # 0.7 K/mcL (0.0-1.3); Neutrophils # 7.7 K/mcL (1.6-8.9); Platelet Estimate Slight Decrease (Normal); Polychromasia 1+ (Not Present)
--- NOTE | 2016-09-13 06:49 | Venous Imaging Report ---
LE Venous Duplex Patient Name:Minna Dutta Order Number:[id number] Procedure Date:09/11/2016 Date:1955ge:61 yrs Gender:Female Location:[facility] ED Room #: ED4 Maintenance Mechanic Supervisor:Pratibha Lake Referring MD:Blair Martínez DO tipple oiler:Sidra Cesar MD Reading MD:Garry Helms MD Primary Indications:r/o DVT, pain Secondary Indications: Risk Factors Yes/No Hx of DVT Anticoagulants Hx of Chemotherapy Impressions: Acute deep venous thrombosis is present in the right superficial femoral and popliteal veins. Normal right lower extremity superficial venous exam. Acute deep venous thrombosis is present in the left common femoral vein. Normal left lower extremity superficial venous exam. Recommendations: After imaging the patient returned to their room. Test completed on 09/12/2016 at 1:08:00 am. Critical findings reported to Dr. Martínez-ED- by phone at 1:28:00 am on 09/12/2016 by Pratibha Lake. Findings Venous Duplex Results: Right: There is an occlusive thrombus seen in the right superficial femoral. There is a partially occlusive thrombus seen in the right popliteal. The right posterior tibial and right peroneal veins were not well visualized. Left: There is a partially occlusive thrombus seen in the left common femoral. The left posterior tibial and left peroneal veins were not well visualized. Lower Extremity Venous Duplex Side Vein Compress Spontaneous Flow Augment Diameter (cm) Depth (cm) Right Distal Iliac Normal Yes Phasic Yes Right Common Femoral Normal Yes Phasic Yes Right Superficial Femoral Partial no Absent no Right Popliteal None no Absent no Right Posterior Tibial Normal Yes Phasic Yes Right Peroneal Normal Yes Phasic Yes Right Saphenofemoral [place] Normal Yes Phasic Yes Right Great Saphenous Normal Yes Phasic Yes Right Lesser Saphenous Normal Yes Phasic Yes Left Distal Iliac Normal Yes Phasic Yes Left Common Femoral Partial no Phasic Yes Left Superficial Femoral Normal Yes Phasic Yes Left Popliteal Normal Yes Phasic Yes Left Posterior Tibial Normal Yes Phasic Yes Left Peroneal Normal Yes Phasic Yes Left Saphenofemoral [place] Normal Yes Phasic Yes Left Great Saphenous Normal Yes Phasic Yes Left Lesser Saphenous Normal Yes Phasic Yes Updated by Garry Helms MD on 09/13/2016 6:44:49 AM electronically signed on 09/13/2016 6:44:59 AM with status of Final
--- NOTE | 2016-09-13 07:04 | Urology Progress Note ---
Date of Encounter: 09/13/16 Time of Encounter: 07:02 - Assessment and Plan (1) Left ureteral stone Current Visit: Yes Status: Acute Assessment and plan: Left ureteral stent placed. Will continue stent through planned left ureteroscopy in 1-2 weeks. (2) UTI (urinary tract infection) Current Visit: No Status: Acute Assessment and plan: Continue IV abx until cultures finalize. Appreciate IM support. Qualifiers: Urinary tract infection type: acute cystitis Hematuria presence: without hematuria Qualified Code(s): N30.00 - Acute cystitis without hematuria Progress Note Narrative: Status post cystoscopy and left ureteral stent placement, yesterday. Doing well. Urine and blood culture growing gram negative rods. No fevers overnight. She is feeling well. Objective Initial Vital Signs Temp Pulse Resp BP Pulse Ox 98.8 F 106 16 137/83 96 09/11/16 20:45 09/11/16 20:45 09/11/16 20:45 09/11/16 20:45 09/11/16 20:45 - General physical appearance Present: well developed, well nourished, no distress - Respiratory Present: normal respiratory effort - Abdomen Present: surgical scars - Labs 09/13/16 Unknown 09/13/16 Unknown Diabetes panel 09/13/16 Range/Units Unknown Sodium 137 (136-145) mEq/L Potassium 3.8 (3.5-4.5) mEq/L Chloride 103 (98-109) mEq/L Carbon Dioxide 20 (19-29) mEq/L BUN 17 (7-20) mg/dL Creatinine 2.24 H D (0.57-1.11) mg/dL Glucose 245 H (70-99) mg/dL Calcium 9.1 (8.6-10.8) mg/dL Calcium panel 09/13/16 Range/Units Unknown Calcium 9.1 (8.6-10.8) mg/dL Pituitary panel 09/13/16 Range/Units Unknown Sodium 137 (136-145) mEq/L Potassium 3.8 (3.5-4.5) mEq/L Chloride 103 (98-109) mEq/L Carbon Dioxide 20 (19-29) mEq/L BUN 17 (7-20) mg/dL Creatinine 2.24 H D (0.57-1.11) mg/dL Glucose 245 H (70-99) mg/dL Calcium 9.1 (8.6-10.8) mg/dL Adrenal panel 09/13/16 Range/Units Unknown Sodium 137 (136-145) mEq/L Potassium 3.8 (3.5-4.5) mEq/L Chloride 103 (98-109) mEq/L Carbon Dioxide 20 (19-29) mEq/L BUN 17 (7-20) mg/dL Creatinine 2.24 H D (0.57-1.11) mg/dL Glucose 245 H (70-99) mg/dL Calcium 9.1 (8.6-10.8) mg/dL Consult Discharge Plan - Plan Referrals: Sidra Cesar MD [Non-Partnered Physician] -
[2016-09-13] MEDS: Magnesium Oxide 400 MG TABLET PO SCH (08:58)
[2016-09-13] MEDS: Gabapentin 400 MG CAPSULE PO SCH ×3 (08:58→21:38)
[2016-09-13] MEDS: Cholestyramine 4 GM POWD.PACK PO SCH ×2 (08:59→21:38)
[2016-09-13] MEDS: Insulin LISPRO 300 UNITS/3 ML VIAL SQ SCH ×4 (08:59→21:39)
[2016-09-13] MEDS: *HR* Metformin 500 MG TABLET PO SCH (08:59)
[2016-09-13] MEDS: BuPROPion XL (24 HR) 150 MG TABLET PO SCH (08:59)
[2016-09-13] MEDS: Pantoprazole 40 MG VIAL IVP SCH (09:00)
[2016-09-13] MEDS ORDERED: BuPROPion SR (12 HR) 150 MG TABLET PO SCH (09:00)
--- NOTE | 2016-09-13 11:56 | Internal Med Progress Note ---
Date of Encounter: 09/13/16 Time of Encounter: 09:00 - Assessment and plan (1) Ureterolithiasis Current Visit: Yes Status: Acute Assessment and plan: Had a urology procedure done. Continue pain management. (2) Hydronephrosis Current Visit: Yes Status: Acute Assessment and plan: Patient has hydronephrosis, which is caused by ureteral stone. Urology on case and did the stenting. Resolved after stent. Qualifiers: Hydronephrosis type: with ureteral calculous obstruction Qualified Code(s) : N13.2 - Hydronephrosis with renal and ureteral calculous obstruction (3) CAD (coronary artery disease) Current Visit: Yes Status: Acute Assessment and plan: Stable. Continue home medication. Qualifiers: Coronary Disease-Associated Artery/Lesion type: [place] artery [place] vs. transplanted heart: [place] heart Associated angina: without angina Qualified Code(s): I25.10 - Atherosclerotic heart disease of [place] coronary artery without angina pectoris (4) Breast cancer in female Current Visit: No Status: Acute Assessment and plan: Patient was diagnosed breast cancer. She had a surgery in December 2015. She has been following oncology in [place] Qualifiers: Breast location: unspecified site of breast Laterality: right Qualified Code(s): C50.911 - Malignant neoplasm of unspecified site of right female breast (5) Diabetes Current Visit: No Status: Acute Assessment and plan: We will cover patient with a sliding scale. Glucose level is still high, adjusted the insulin dose to medium correction dose. Qualifiers: Diabetes mellitus type: type 2 Diabetes mellitus complication status: without complication Diabetes mellitus tank terminal gauger insulin use: without tank terminal gauger use Qualified Code(s): E11.9 - Type 2 diabetes mellitus without complications (6) DVT (deep venous thrombosis) Current Visit: No Status: Chronic Assessment and plan: Patient was reported DVT. She has history of DVT and was on Eliquis. Keep patient on heparin drip for now. Wait for the formal report of duplex legs. Oncology consult appreciated. Patient is at high risk because she is on heparin drip, which needed close monitoring. Qualifiers: DVT location: lower extremity Affected thrombotic vein of extremity: femoral Laterality: bilateral Chronicity: unspecified Qualified Code(s): I82.413 - Acute embolism and thrombosis of femoral vein, bilateral (7) Urinary tract infection Current Visit: No Status: Resolved Assessment and plan: Urine culture shows gram-negative dion. On zosyn now. Waiting for final report. Qualifiers: Urinary tract infection type: acute cystitis Qualified Code(s): N30.00 - Acute cystitis without hematuria (8) DVT prophylaxis Current Visit: Yes Status: Acute Assessment and plan: Patient is on heparin drip for now. (9) DOC (acute kidney injury) Current Visit: No Status: Acute Assessment and plan: Worsening creatinine level. Had US renal which shows no obstruction. Will increase IVF, hold metformin and NSAID. F/U renal function. - Time Spent With Patient Greater than 35 minutes - Subjective Interval history: Patient is a 61-year-old female admitted for left flank pain. She was found left ureteral stone. Her past medical history is significant for asthma, breast cancer, CHF, COPD, CAD, diabetes, fibromyalgia, hyperlipidemia, hypertension, osteoporosis, thyroid disease. Patient was seen and examined. She feels better. No nausea no vomiting. Mild abd pain. No fever, vitals stable. Urology and oncology consult appreciated. Pt has worsen renal function today, will order US renal to r/o obstruction, increase IVF rate if there is no obstruction, and f/u renal function. Blood culture and urine culture shows gRAM NEGATIVE dion, will change rocephin to zosyn for now, waiting for final culture report. Will repeat blood culture from both peripheral and central line. - Constitutional Vitals: Temp Pulse Resp BP Pulse Ox 98.1 F 85 16 93/60 98 09/13/16 10:54 09/13/16 10:54 09/13/16 10:54 09/13/16 10:54 09/13/16 10:54 General appearance: Present: A&O X 3, no acute distress - Head Head exam: Present: atraumatic, normocephalic - Eye Eye exam: Present: PERRL, conjuntiva pink, sclera anicteric Pupils: Present: PERRL - Neck Neck exam general surgery: Present: supple, trachea midline. Absent: lymphadenopathy - Respiratory Respiratory exam: Present: CTAB. Absent: accessory muscle use, rales, rhonchi, wheezes - Cardiovascular Cardiovascular exam: Present: RRR, +S1, +S2. Absent: diastolic murmur, gallop, rubs, systolic murmur - GI/Abdominal GI/Abdominal exam: Present: normal bowel sounds, soft, no peritoneal signs. Absent: distended, tenderness - Extremities Exam Extremities exam: Present: warm, radial pulses palpable and symetrical. Absent : calf tenderness, cyanotic, pedal edema - Neurological Exam Neurological exam: Present: CN II-XII intact, oriented X3, no focal deficits. Absent: pronater drift, facial droop, speech deficit - Skin Skin exam: Present: dry, intact Internal Medicine: Result - Labs CBC & Chem 7: 09/13/16 Unknown 09/13/16 Unknown Labs: Short CBC 09/13/16 Range/Units Unknown WBC 8.7 (4.3-11.1) K/mcL Hgb 9.8 L D (11.5-15.4) g/dL Hct 29.7 L (35.3-44.9) % Plt Count 119 L (140-400) K/mcL Neutrophils # 7.7 (1.6-8.9) K/mcL BMP 09/13/16 Unknown Sodium 137 Potassium 3.8 Chloride 103 Carbon Dioxide 20 BUN 17 Creatinine 2.24 H D Glucose 245 H Calcium 9.1 - ABG Interpretation ABG results: PT/INR, D-dimer PT 12.1 Seconds (9.4-12.1) 09/11/16 22:01 D-Dimer 1094 ng/mLFEU (0-500) H 09/11/16 22:01 - Impressions Impressions KUB X-Ray 09/12/16 10:53 IMPRESSION: Right ureteral catheter is noted. D/ / Joel Carbone MD / Joel Carbone MD Interpreting Provider: Joel Carbone MD Retroperitoneum Ultrasound 09/13/16 09:30 IMPRESSION: Unremarkable ultrasound of the kidneys and urinary bladder. Specifically, no hydronephrosis. Patient's known left renal stones are seen to better advantage on prior CT. D/ / 09/13/2016 11:29:58 Celena Verma MD / woody Interpreting Provider: Celena Verma MD Consult Discharge Plan - Plan Referrals: Sidra Cesar MD [Non-Partnered Physician] - 09/21/16 11:00 am
[2016-09-13] MEDS ORDERED: Piperacillin/Tazobactam 2.25 GM in D5% in Water (Mini-Bag+) 100 ML IVPB SCH (16:00)
[2016-09-13] MEDS: Piperacillin/Tazobactam 3.375 GM in D5% in Water (Mini-Bag+) 100 ML IVPB SCH (16:56)
[2016-09-14] MEDS: Cholestyramine 4 GM POWD.PACK PO SCH ×3 (00:34→20:06)
[2016-09-14] MEDS: Piperacillin/Tazobactam 3.375 GM in D5% in Water (Mini-Bag+) 100 ML IVPB SCH ×3 (00:36→20:06)
[2016-09-14] MEDS: 0.9 % Sodium Chloride 1,000 ML IVC SCH (00:39)
[2016-09-14] MEDS: Heparin 25,000 UNIT/500 ML D5W 25,000 UNIT/500 ML MLS IVC SCH ×2 (00:41→23:42)
[2016-09-14] MEDS ORDERED: *HR* Alteplase (Cathflo) 2 MG VIAL IVP ONE (04:07)
[2016-09-14 04:33] LABS: Calcium 8.4 mg/dL (8.6-10.8); Potassium 3.7 mEq/L (3.5-4.5)
[2016-09-14 04:37] LABS: Hematocrit 29.4 % (35.3-44.9); Hemoglobin 9.6 g/dL (11.5-15.4); Mean Corpuscular HGB Conc 32.7 g/dL (31.6-35.5); Mean Corpuscular Hemoglobin 33.6 pg (28.0-33.3); Mean Corpuscular Volume 102.8 fL (83.0-100.0); Mean Platelet Volume 9.8 fL (9.4-12.4); Platelet Count 114 K/mcL (140-400); Red Blood Count 2.86 M/mcL (3.82-4.97); Red Cell Distribution Width 17.4 % (11.5-14.5)
[2016-09-14 05:37] LABS: Lymphocytes # 0.4 K/mcL (0.6-4.6); Monocytes # 0.2 K/mcL (0.0-1.3); Neutrophils # 4.6 K/mcL (1.6-8.9); Platelet Estimate Slight Decrease (Normal)
[2016-09-14 05:39] LABS: Anisocytosis 1+ (Not Present); Polychromasia 1+ (Not Present); Tear Drop Cells 1+ (Not Present)
[2016-09-14 05:40] LABS: Large Platelets Present (Not Present); Toxic Granulation Present (Not Present)
--- NOTE | 2016-09-14 07:47 | Urology Progress Note ---
Date of Encounter: 09/14/16 Time of Encounter: 07:45 - Assessment and Plan (1) Left ureteral stone Current Visit: Yes Status: Acute Assessment and plan: s/p cystoscopy, left ureteral stent placement. Creatinine is worsening. Ortiz placed today. Check CT. Ultrasound showed no hydronephrosis, but would like to confirm that CT shows stent in good position. (2) UTI (urinary tract infection) Current Visit: No Status: Acute Assessment and plan: Awaiting on final culture results. Qualifiers: Urinary tract infection type: acute cystitis Hematuria presence: without hematuria Qualified Code(s): N30.00 - Acute cystitis without hematuria Progress Note Narrative: 61 year old woman with left ureteral stones and UTI. Her creatinine is worsening over the last two days. Objective Initial Vital Signs Temp Pulse Resp BP Pulse Ox 98.8 F 106 16 137/83 96 09/11/16 20:45 09/11/16 20:45 09/11/16 20:45 09/11/16 20:45 09/11/16 20:45 - General physical appearance Present: well developed, well nourished, no distress - Respiratory Present: normal respiratory effort - Abdomen Present: soft - Genitourinary Present: normal external genitalia - Labs 09/14/16 04:01 09/14/16 04:01 Diabetes panel 09/14/16 Range/Units 04:01 Sodium 135 L (136-145) mEq/L Potassium 3.7 (3.5-4.5) mEq/L Chloride 105 (98-109) mEq/L Carbon Dioxide 17 L (19-29) mEq/L BUN 31 H D (7-20) mg/dL Creatinine 4.09 H D (0.57-1.11) mg/dL Glucose 220 H (70-99) mg/dL Calcium 8.4 L (8.6-10.8) mg/dL Calcium panel 09/14/16 Range/Units 04:01 Calcium 8.4 L (8.6-10.8) mg/dL Pituitary panel 09/14/16 Range/Units 04:01 Sodium 135 L (136-145) mEq/L Potassium 3.7 (3.5-4.5) mEq/L Chloride 105 (98-109) mEq/L Carbon Dioxide 17 L (19-29) mEq/L BUN 31 H D (7-20) mg/dL Creatinine 4.09 H D (0.57-1.11) mg/dL Glucose 220 H (70-99) mg/dL Calcium 8.4 L (8.6-10.8) mg/dL Adrenal panel 09/14/16 Range/Units 04:01 Sodium 135 L (136-145) mEq/L Potassium 3.7 (3.5-4.5) mEq/L Chloride 105 (98-109) mEq/L Carbon Dioxide 17 L (19-29) mEq/L BUN 31 H D (7-20) mg/dL Creatinine 4.09 H D (0.57-1.11) mg/dL Glucose 220 H (70-99) mg/dL Calcium 8.4 L (8.6-10.8) mg/dL Consult Discharge Plan - Plan Referrals: Sidra Cesar MD [Non-Partnered Physician] - 09/21/16 11:00 am
[2016-09-14] MEDS: BuPROPion XL (24 HR) 150 MG TABLET PO SCH (09:55)
[2016-09-14] MEDS: Gabapentin 400 MG CAPSULE PO SCH ×3 (09:56→20:06)
[2016-09-14] MEDS: Magnesium Oxide 400 MG TABLET PO SCH (09:56)
[2016-09-14] MEDS: Insulin LISPRO 300 UNITS/3 ML VIAL SQ SCH ×4 (09:57→21:42)
[2016-09-14] MEDS: Pantoprazole 40 MG VIAL IVP SCH (09:57)
--- NOTE | 2016-09-14 11:02 | Nephrology Consult Note ---
Date of Encounter: 09/14/16 Time of Encounter: 09:45 Assessment and Plan (1) DOC (acute kidney injury) Current Visit: No Status: Acute DOC, most likely contrast induced nephropathy following CT with contrast superimposed on Left renal calculi with ureteral stent placement. Stent. Unable to currently do MRI or CT with contrast to evaluate secondary to worsening renal fct. Placement confirmed on CT today with resolved hydronephrosis. NSAID and Metformin on hold. There is concern with new DVT development and question possibility of renal vein thrombosis. Keep well hydrated as tolerated, avoid nephrotoxins. Will continue to follow. History of Present Illness - Reason for Consult Acute Kidney Injury - History of Present Illness Ms. Dutta is a 61 year old female that presented to ER this past Sunday with left flank pain. Other PMH DM II, HTN, DVT's, hypothyroidism, breast cancer with last chemo two months ago, GERD, CHF, COPD and CAD. CT Abd/Pelvis onSep 11 with contrast showed left ureteral stones with hydronephrosis, also concern for UTI, urine and blood cultures growing gram negative rods. Also diagnosed with new DVT's bilaterally and started on Heparin. She underwent cystoscopy with left ureteral stent placement. Hydronephrosis resolved. It was noted that creatinine has been worsening for past two days. Urology placed 18F indwelling bowen catheter this morning and Ct Abd/Pelvis done to ensure stent in good placement which it did verify. At time of consult patient is alert, eating breakfast. States is feeling much better and denies pain. Bowen with approximately 200 cc dark concentrated katie urine. Ms. Dutta states has had diabetes and hypertension for past 5-6 years. Mostly under good control. She denies diabetic retinopathy. She admits recent NSAID use; Etodalac daily for past year and remote Naprosyn use about three years ago. She denies proteinuria, hematuria or renal stones except for this current event of stones. She does admit chronic UTI's since childhood and on into adulthood. Prior labs reveal normal renal fct until transient elevation of creat 1.24 in early August to which she states she had UTI at that time and resumed normal renal fct until this admission with creat of 1.14, escalating today to 4.09. Past Med Surg Social Fam HX - Past Medical History Medical history: arthritis, asthma, cancer, CHF, COPD, diabetes, fibromyalgia, GERD, hyperlipidemia, hypertension, osteoporosis, thyroid disease, other ( Thyroidism, osteoarthritis, osteoporosis, gastroesophageal reflux disease, chronic obstructive pulmonary disease, chronic low back pain, lumbar central stenosis with degenerative disc disease, congestive heart failure, polymyalgia, hypertension, hyperlipidemia, and progressive breast cancer.) Psychiatric history: anxiety, depression - Past Surgical History Surgical History: cholecystectomy, herniorrhaphy, hip replacement, hysterectomy (Nominal hysterectomy and BSO), knee replacement, other (Bladder lift, rectal surgery repair of the sphincter.) - Social History Smoking Status: Never smoker Smokeless Tobacco Status: No Alcohol use: none Drug use: none - Family History Mother Family Member Ethnicity: Non- Living Status: Age at : 76 Cause of : diabetes, heart disease Hx Family Cardiac Disorders: Yes Hx Family Respiratory Disorders: Yes Hx Family Cancer: Yes (Breast cancer and leukemia) Father History Unknown: Yes (Heart disease, hypertension, diabetes, emphysema, and kidney cancer.) Family Member Ethnicity: Non- Living Status: Age at : 68 Cause of : heart disease Hx Family Cardiac Disorders: Yes Hx Family Respiratory Disorders: Yes Medications and Allergies Alendronate Sodium [Alendronate Sodium] 70 mg PO QWEEK 09/12/16 [History] BuPROPion SR (12 HR) [Wellbutrin SR] 150 mg PO DAILY 09/12/16 [History] Cholestyramine (with Sugar) [Cholestyramine Bulk Powder] 1 each PO BID 09/12/16 [History] Citalopram Hydrobromide [Citalopram HBr] 20 mg PO BID 09/12/16 [History] Diphenoxylate HCl/Atropine [Diphenoxylate-Atrop 2.5-0.025] 1 cap PO Q4H PRN 06/19 [History] Etodolac [Etodolac] 400 mg PO BID PRN 09/12/16 [History] Gabapentin [Gabapentin] 800 mg PO TID 09/12/16 [History] Magnesium Oxide [Magnesium] 400 mg PO DAILY 09/12/16 [History] Metformin HCl [Metformin HCl ER] 500 mg PO BID 09/12/16 [History] Omeprazole [PriLOSEC] 20 mg PO DAILY 09/12/16 [History] OxyCODONE/APAP 5/325 [Percocet 5/325 MG] 1 tab PO Q4H PRN 09/12/16 [History] Pantoprazole Sodium [Protonix] 40 mg PO BID 09/12/16 [History] Phenazopyridine [Pyridium] 100 mg PO TID PRN 09/12/16 [History] Pravastatin Sodium [Pravastatin Sodium] 40 mg PO DAILY 09/12/16 [History] Zolpidem [Ambien] 10 mg PO HS PRN 09/12/16 [History] Allergies codeine Allergy (Verified 08/30/16 12:06) Vomiting Sulfa (Sulfonamide Antibiotics) Allergy (Verified 08/30/16 12:06) Hives Hydromorphone [From Dilaudid] Adverse Reaction (Verified 08/30/16 12:06) Hypotension morphine Adverse Reaction (Verified 08/30/16 12:06) Difficulty Breathing Review of Systems All Systems: reviewed and no additional remarkable complaints except as stated Exam - Vital Signs Vital signs: Initial Vital Signs Temp Pulse Resp BP Pulse Ox 98.8 F 106 16 137/83 96 09/11/16 20:45 09/11/16 20:45 09/11/16 20:45 09/11/16 20:45 09/11/16 20:45 Vital Signs - Last 8 Hours Temp Pulse Resp BP Pulse Ox 09/14/16 07:47 98.4 F 71 14 102/69 95 09/14/16 04:55 98.8 F 99 16 103/64 95 Intake and Output 09/13/16 09/14/16 09/14/16 23:59 07:59 15:59 Intake Total 781 / 781 1672.8 / 1672.8 Output Total 100 / 100 50 / 50 Balance 681 / 681 1622.8 / 1622.8 Intake: IV Fluids 301 / 301 1197.8 / 1197.8 0.9 % Sodium Chloride 1, 1000 / 1000 000 ML @ 80 mls/hr IVC . [id number] DOC Rx#: [id number] Heparin 25,000 UNIT/500 201 / 201 97.8 / 97.8 ML D5W 25,000 unit In 500 ml @ 14 UNIT/KG/HR 33. 022 mls/hr IVC .[id number] DOC Rx#:[id number] Zosyn 3.375 GM In 100 / 100 100 / 100 Dextrose 5% (Minibag+) 100 ML 100 ML @ 25 mls/hr IVPB Q8HR DOC Rx#: [id number] Oral 480 / 480 475 / 475 Output: Urine 100 / 100 0 / 0 Catheter 50 / 50 Other: Meal Dinner Percent of Meal Consumed 100% Stool Size Moderate Stool Consistency liquid Stool Color Brown # Voids 1 # Bowel Movements 1 Blood Glucose* 245 236 - General Appearance General appearance: well-developed, well-nourished, appears started age, obese EENT: mucous membranes moist Neck: no JVD, no carotid bruit Respiratory: clear Cardiology: regular rate, regular rhythm Additional Comments: trace pitting LE Gastrointestinal: normoactive bowel sounds, no tenderness, no guarding Integumentary: warm and dry Neurologic: alert and oriented x3 Psychiatric: mood/affect appropriate, cooperative Results - Lab Results 09/14/16 04:01 09/14/16 04:01 Most recent lab results Calcium 8.4 mg/dL (8.6-10.8) L 09/14/16 04:01 Consult Discharge Plan - Plan Referrals: Sidra Cesar MD [Non-Partnered Physician] - 09/21/16 11:00 am
--- NOTE | 2016-09-14 13:21 | Internal Med Progress Note ---
Date of Encounter: 09/14/16 Time of Encounter: 09:00 - Assessment and plan (1) Ureterolithiasis Current Visit: Yes Status: Acute Assessment and plan: Had a urology procedure done. Continue pain management. (2) Hydronephrosis Current Visit: Yes Status: Acute Assessment and plan: Patient has hydronephrosis, which is caused by ureteral stone. Urology on case and did the stenting. Resolved after stent. Qualifiers: Hydronephrosis type: with ureteral calculous obstruction Qualified Code(s) : N13.2 - Hydronephrosis with renal and ureteral calculous obstruction (3) CAD (coronary artery disease) Current Visit: Yes Status: Acute Assessment and plan: Stable. Continue home medication. Qualifiers: Coronary Disease-Associated Artery/Lesion type: [place] artery [place] vs. transplanted heart: [place] heart Associated angina: without angina Qualified Code(s): I25.10 - Atherosclerotic heart disease of [place] coronary artery without angina pectoris (4) Breast cancer in female Current Visit: No Status: Acute Assessment and plan: Patient was diagnosed breast cancer. She had a surgery in December 2015. She has been following oncology in [place] Qualifiers: Breast location: unspecified site of breast Laterality: right Qualified Code(s): C50.911 - Malignant neoplasm of unspecified site of right female breast (5) Diabetes Current Visit: No Status: Acute Assessment and plan: We will cover patient with a sliding scale. Glucose level is still high, adjusted the insulin dose to medium correction dose. Add basal insulin levemir 10 units HS. Qualifiers: Diabetes mellitus type: type 2 Diabetes mellitus complication status: without complication Diabetes mellitus bed bug exterminator insulin use: without longterm use Qualified Code(s): E11.9 - Type 2 diabetes mellitus without complications (6) DVT (deep venous thrombosis) Current Visit: No Status: Chronic Assessment and plan: Patient was reported DVT. She has history of DVT and was on Eliquis. Keep patient on heparin drip for now. Oncology consult appreciated. Will switch back to eliquis later. Patient is at high risk because she is on heparin drip, which needed close monitoring. Qualifiers: DVT location: lower extremity Affected thrombotic vein of extremity: femoral Laterality: bilateral Chronicity: unspecified Qualified Code(s): I82.413 - Acute embolism and thrombosis of femoral vein, bilateral (7) Urinary tract infection Current Visit: No Status: Resolved Assessment and plan: Urine culture shows gram-negative dion. On zosyn now. Waiting for final report. Qualifiers: Urinary tract infection type: acute cystitis Qualified Code(s): N30.00 - Acute cystitis without hematuria (8) DVT prophylaxis Current Visit: Yes Status: Acute Assessment and plan: Patient is on heparin drip for now. (9) DOC (acute kidney injury) Current Visit: No Status: Acute Assessment and plan: Worsening creatinine level. Had US renal which shows no obstruction. Will increase IVF, hold metformin and NSAID. F/U renal function. Nephrology consult appreciated. (10) Bacteremia Current Visit: Yes Status: Acute Assessment and plan: Blood culture positive for gram-negative rods. On Zosyn. Repeat blood culture and awaiting for the final result. - Time Spent With Patient Greater than 35 minutes - Subjective Interval history: Patient is a 61-year-old female admitted for left flank pain. She was found left ureteral stone. Her past medical history is significant for asthma, breast cancer, CHF, COPD, CAD, diabetes, fibromyalgia, hyperlipidemia, hypertension, osteoporosis, thyroid disease. Patient was seen and examined. She feels better. No nausea no vomiting. No abd pain. No fever, vitals stable. Urology and oncology consult appreciated. Pt has worsen renal function today, nephrology consult saw pt and appreciated. Consider contrast induced nephotoxicity. Will cont IVF and f/u renal function. Blood culture and urine culture shows gRAM NEGATIVE dion, will change rocephin to zosyn for now, waiting for final culture report. blood culture repeated from both peripheral and central line. Per oncology recommedation, will resume eliquis 5mg po bid if her renal function has improved (CrCl > 15). Keep heparin drip now. - Constitutional Vitals: Temp Pulse Resp BP Pulse Ox 98.7 F 95 15 85/54 96 09/14/16 11:27 09/14/16 11:27 09/14/16 11:27 09/14/16 11:27 09/14/16 11:27 General appearance: Present: A&O X 3, no acute distress - Head Head exam: Present: atraumatic, normocephalic - Eye Eye exam: Present: PERRL, conjuntiva pink, sclera anicteric Pupils: Present: PERRL - Neck Neck exam general surgery: Present: supple, trachea midline. Absent: lymphadenopathy - Respiratory Respiratory exam: Present: CTAB. Absent: accessory muscle use, rales, rhonchi, wheezes - Cardiovascular Cardiovascular exam: Present: RRR, +S1, +S2. Absent: diastolic murmur, gallop, rubs, systolic murmur - GI/Abdominal GI/Abdominal exam: Present: normal bowel sounds, soft, no peritoneal signs. Absent: distended, tenderness - Extremities Exam Extremities exam: Present: warm, radial pulses palpable and symetrical. Absent : calf tenderness, cyanotic, pedal edema - Neurological Exam Neurological exam: Present: CN II-XII intact, oriented X3, no focal deficits. Absent: pronater drift, facial droop, speech deficit - Skin Skin exam: Present: dry, intact Internal Medicine: Result - Labs CBC & Chem 7: 09/14/16 04:01 09/14/16 04:01 Labs: Short CBC 09/14/16 Range/Units 04:01 WBC 5.4 (4.3-11.1) K/mcL Hgb 9.6 L (11.5-15.4) g/dL Hct 29.4 L (35.3-44.9) % Plt Count 114 L (140-400) K/mcL Neutrophils # 4.6 (1.6-8.9) K/mcL BMP 09/14/16 04:01 Sodium 135 L Potassium 3.7 Chloride 105 Carbon Dioxide 17 L BUN 31 H D Creatinine 4.09 H D Glucose 220 H Calcium 8.4 L - ABG Interpretation ABG results: PT/INR, D-dimer PT 12.1 Seconds (9.4-12.1) 09/11/16 22:01 D-Dimer 1094 ng/mLFEU (0-500) H 09/11/16 22:01 - Impressions Impressions Retroperitoneum Ultrasound 09/13/16 09:30 IMPRESSION: Unremarkable ultrasound of the kidneys and urinary bladder. Specifically, no hydronephrosis. Patient's known left renal stones are seen to better advantage on prior CT. D/ / 09/13/2016 11:29:58 Celena Verma MD / woody Interpreting Provider: Celena Verma MD Abdomen/Pelvis CT 09/14/16 09:30 IMPRESSION: Left ureteral stent is in appropriate position. There is mild left periureteral stranding without evidence of hydronephrosis or hydroureter. There are 2 nonobstructing calculi in the inferior pole left kidney and single nonobstructing calculi in the right kidney. The other previously seen left-sided calculi are no longer visualized. Diffuse hepatic steatosis. Postsurgical changes in the right anterior chest wall with a fluid collection. Findings are similar in appearance to prior study, likely a seroma. D/ / Tammy Granados MD / Tammy Granados MD Interpreting Provider: Tammy Granados MD Consult Discharge Plan - Plan Referrals: Sidra Cesar MD [Non-Partnered Physician] - 09/21/16 11:00 am
[2016-09-14] MEDS ORDERED: Insulin DETEMIR 100 UNIT/ML X5UNITS SQ SCH (21:00)
[2016-09-15 03:52] LABS: Hematocrit 26.4 % (35.3-44.9); Hemoglobin 8.8 g/dL (11.5-15.4); Mean Corpuscular HGB Conc 33.3 g/dL (31.6-35.5); Mean Corpuscular Hemoglobin 33.3 pg (28.0-33.3); Mean Platelet Volume 9.9 fL (9.4-12.4); Platelet Count 107 K/mcL (140-400); Red Blood Count 2.64 M/mcL (3.82-4.97); Red Cell Distribution Width 17.2 % (11.5-14.5)
[2016-09-15 04:12] LABS: Potassium 3.8 mEq/L (3.5-4.5)
[2016-09-15] MEDS: 0.9 % Sodium Chloride 1,000 ML IVC SCH ×2 (05:27→17:14)
[2016-09-15] MEDS: *HR* Heparin 5,000 UNIT/ML VIAL IVP PRN (05:29)
[2016-09-15 06:19] LABS: Hypochromasia Present (Not Present); Platelet Estimate Normal (Normal); Tear Drop Cells 1+ (Not Present)
[2016-09-15 06:30] LABS: Lymphocytes # 0.8 K/mcL (0.6-4.6)
[2016-09-15 06:31] LABS: Monocytes # 0.3 K/mcL (0.0-1.3); Neutrophils # 4.3 K/mcL (1.6-8.9)
--- NOTE | 2016-09-15 07:37 | Urology Progress Note ---
Date of Encounter: 09/15/16 Time of Encounter: 07:34 - Assessment and Plan (1) Left ureteral stone Current Visit: Yes Status: Acute Assessment and plan: s/p left ureteral stent. Stent in good position. (2) UTI (urinary tract infection) Current Visit: No Status: Acute Assessment and plan: Salmonella growing out. Okay to continue zosyn or transition to PO antibiotic as she has been afebrile. Qualifiers: Urinary tract infection type: acute cystitis Hematuria presence: without hematuria Qualified Code(s): N30.00 - Acute cystitis without hematuria (3) DOC (acute kidney injury) Current Visit: No Status: Acute Assessment and plan: Unlikely related to obstruction. Appreciate recs by nephrology. Progress Note Narrative: 61 year old woman with left ureteral stones and UTI. Her creatinine continues to worsen. CT showed good position of the stent and bowen catheter. She has been oliguric. Objective Initial Vital Signs Temp Pulse Resp BP Pulse Ox 98.8 F 106 16 137/83 96 09/11/16 20:45 09/11/16 20:45 09/11/16 20:45 09/11/16 20:45 09/11/16 20:45 - General physical appearance Present: well developed, well nourished, no distress - Respiratory Present: normal respiratory effort - Abdomen Present: soft - Genitourinary Urine Appearance: Present: Cloudy (Tea colored, scant urine.) - Labs 09/15/16 03:34 09/15/16 03:34 Diabetes panel 09/15/16 Range/Units 03:34 Sodium 134 L (136-145) mEq/L Potassium 3.8 (3.5-4.5) mEq/L Chloride 102 (98-109) mEq/L Carbon Dioxide 17 L (19-29) mEq/L BUN 41 H D (7-20) mg/dL Creatinine 6.04 H (0.57-1.11) mg/dL Glucose 244 H (70-99) mg/dL Calcium 8.0 L (8.6-10.8) mg/dL Calcium panel 09/15/16 Range/Units 03:34 Calcium 8.0 L (8.6-10.8) mg/dL Pituitary panel 09/15/16 Range/Units 03:34 Sodium 134 L (136-145) mEq/L Potassium 3.8 (3.5-4.5) mEq/L Chloride 102 (98-109) mEq/L Carbon Dioxide 17 L (19-29) mEq/L BUN 41 H D (7-20) mg/dL Creatinine 6.04 H (0.57-1.11) mg/dL Glucose 244 H (70-99) mg/dL Calcium 8.0 L (8.6-10.8) mg/dL Adrenal panel 09/15/16 Range/Units 03:34 Sodium 134 L (136-145) mEq/L Potassium 3.8 (3.5-4.5) mEq/L Chloride 102 (98-109) mEq/L Carbon Dioxide 17 L (19-29) mEq/L BUN 41 H D (7-20) mg/dL Creatinine 6.04 H (0.57-1.11) mg/dL Glucose 244 H (70-99) mg/dL Calcium 8.0 L (8.6-10.8) mg/dL Consult Discharge Plan - Plan Referrals: Sidra Cesar MD [Non-Partnered Physician] - 09/21/16 11:00 am
[2016-09-15] MEDS: Piperacillin/Tazobactam 3.375 GM in D5% in Water (Mini-Bag+) 100 ML IVPB SCH ×2 (08:06→20:45)
[2016-09-15] MEDS: Pantoprazole 40 MG VIAL IVP SCH (08:06)
[2016-09-15] MEDS: Magnesium Oxide 400 MG TABLET PO SCH (08:07)
[2016-09-15] MEDS: BuPROPion XL (24 HR) 150 MG TABLET PO SCH (08:07)
[2016-09-15] MEDS: Cholestyramine 4 GM POWD.PACK PO SCH ×2 (08:07→20:46)
[2016-09-15] MEDS: Gabapentin 400 MG CAPSULE PO SCH ×3 (08:07→20:46)
[2016-09-15] MEDS: Insulin LISPRO 300 UNITS/3 ML VIAL SQ SCH ×4 (08:08→21:05)
--- NOTE | 2016-09-15 09:17 | Nephrology Progress Note ---
Date of Encounter: 09/15/16 Time of Encounter: 09:15 - Assessment and Plan (1) DOC (acute kidney injury) Current Visit: No Status: Acute The patient has acute kidney injury which appears to be multifactorial in etiology. Factors include contrast-induced nephropathy urinary tract infection ureteral stone with hydronephrosis and outpatient consumption of etodolac. Going to give the patient a dose of Lasix to see if we can increase her urine output. I am going to reduce her IV fluids to prevent volume overload. I did discuss acute kidney injury and the possibility of dialysis should her renal function continued to worsen with the patient. She is agreeable to dialysis should it become necessary. I am still hopeful that eventually her renal function will improve back to normal. I did review her to previous CAT scans with the radiologist. Based on those scans there is no suspicion of renal vein thrombosis. (2) Hydronephrosis with renal and ureteral calculous obstruction Current Visit: Yes Status: Acute (3) UTI (urinary tract infection) Current Visit: Yes Status: Acute Qualifiers: Urinary tract infection type: site unspecified Hematuria presence: without hematuria Qualified Code(s): N39.0 - Urinary tract infection, site not specified Subjective Interval history: Patient denies any new complaints. She denies any nausea vomiting or shortness of breath. Unfortunately her renal function continues to worsen at a relatively rapid rate. Urine output is recorded is 175 mL. Vital signs are stable. Objective - Vital Signs Vital signs: Vital Signs Temp Pulse Resp BP Pulse Ox 09/15/16 07:41 98.3 F 87 18 118/77 96 09/15/16 05:30 98.4 F 93 16 105/66 94 L 09/15/16 00:27 97.9 F 91 16 105/69 100 09/14/16 20:31 98.1 F 96 16 125/60 97 09/14/16 17:48 98 F 92 16 102/63 95 09/14/16 11:27 98.7 F 95 15 85/54 96 Intake and Output 09/14/16 09/15/16 09/15/16 23:59 07:59 15:59 Intake Total 349 / 349 125 / 125 Output Total 50 / 50 Balance 349 / 349 75 / 75 Intake: IV Fluids 349 / 349 125 / 125 Heparin 25,000 UNIT/500 249 / 249 125 / 125 ML D5W 25,000 unit In 500 ml @ 14 UNIT/KG/HR 33. 022 mls/hr IVC .Q15H9M DOC Rx#:[id number] Zosyn 3.375 GM In 100 / 100 Dextrose 5% (Minibag+) 100 ML 100 ML @ 25 mls/hr IVPB Q12H DOC Rx#: [id number] Output: Catheter 50 / 50 Other: Stool Size Moderate Stool Consistency soft Stool Color Brown Arpan Colored # Bowel Movements 0 Blood Glucose* 277 261 - General Appearance Exam: Patient is alert and oriented. She is in no acute distress. Lungs sounds otherwise clear. Heart regular rate and rhythm. There is no friction rub. Abdomen is benign. There is bilateral lower extremity swelling. - Lab 09/15/16 03:34 09/15/16 03:34 Most recent lab results Calcium 8.0 mg/dL (8.6-10.8) L 09/15/16 03:34 Consult Discharge Plan - Plan Referrals: Sidra Cesar MD [Non-Partnered Physician] - 09/21/16 11:00 am
[2016-09-15] MEDS ORDERED: Furosemide 80 MG in 0.9 % Sodium Chloride 50 ML IVPB ONE (09:20)
[2016-09-15] MEDS: Heparin 25,000 UNIT/500 ML D5W 25,000 UNIT/500 ML MLS IVC SCH ×2 (11:10→18:22)
--- NOTE | 2016-09-15 11:34 | Internal Med Progress Note ---
Date of Encounter: 09/15/16 Time of Encounter: 09:00 - Assessment and plan (1) Ureterolithiasis Current Visit: Yes Status: Acute Assessment and plan: Had urology procedure done. Continue pain management. (2) Hydronephrosis Current Visit: Yes Status: Acute Assessment and plan: Patient has hydronephrosis, which is caused by ureteral stone. Urology on case and did the stenting. Resolved after stent. Qualifiers: Hydronephrosis type: with ureteral calculous obstruction Qualified Code(s) : N13.2 - Hydronephrosis with renal and ureteral calculous obstruction (3) CAD (coronary artery disease) Current Visit: Yes Status: Acute Assessment and plan: Stable. Continue home medication. Qualifiers: Coronary Disease-Associated Artery/Lesion type: [place] artery [place] vs. transplanted heart: [place] heart Associated angina: without angina Qualified Code(s): I25.10 - Atherosclerotic heart disease of [place] coronary artery without angina pectoris (4) Breast cancer in female Current Visit: No Status: Acute Assessment and plan: Patient was diagnosed breast cancer. She had a surgery in December 2015. She has been following oncology in [place] Qualifiers: Breast location: unspecified site of breast Laterality: right Qualified Code(s): C50.911 - Malignant neoplasm of unspecified site of right female breast (5) Diabetes Current Visit: No Status: Acute Assessment and plan: We will cover patient with a sliding scale. Glucose level is still high, adjusted the insulin dose to medium correction dose. Change basal insulin levemir 10 units BID. 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 She has history of DVT and was on Eliquis. Keep patient on heparin drip for now. Oncology consult appreciated. Will switch back to eliquis later. Patient is at high risk because she is on heparin drip, which needed close monitoring. Qualifiers: DVT location: lower extremity Affected thrombotic vein of extremity: femoral Laterality: bilateral Chronicity: unspecified Qualified Code(s): I82.413 - Acute embolism and thrombosis of femoral vein, bilateral (7) Urinary tract infection Current Visit: No Status: Resolved Assessment and plan: Urine culture shows Salmonella. On zosyn now. Waiting for final report. Qualifiers: Urinary tract infection type: acute cystitis Qualified Code(s): N30.00 - Acute cystitis without hematuria (8) DVT prophylaxis Current Visit: Yes Status: Acute Assessment and plan: Patient is on heparin drip for now. (9) DOC (acute kidney injury) Current Visit: No Status: Acute Assessment and plan: Worsening creatinine level. Had US renal which shows no obstruction. Will continue IVF, hold metformin and NSAID. F/U renal function. Nephrology consult recommendation is highly appreciated and will be followed. (10) Bacteremia Current Visit: Yes Status: Acute Assessment and plan: Blood culture positive for Salmonella. On Zosyn. Repeat blood culture negative and waiting for the final result. Patient has a port on the left chest , no skin erythema, edema, or tenderness, blood culture from the catheter negative, less likely catheter infection, will keep the catheter. - Time Spent With Patient Greater than 35 minutes - Subjective Interval history: Patient is a 61-year-old female admitted for left flank pain. She was found left ureteral stone. Her past medical history is significant for asthma, breast cancer, CHF, COPD, CAD, diabetes, fibromyalgia, hyperlipidemia, hypertension, osteoporosis, thyroid disease. Patient was seen and examined. She feels better. No nausea no vomiting. No abd pain. No fever, vitals stable. Pt has worsen renal function , nephrology consult on case and input is highly appreciated. Recommendation will be followed. Blood culture and urine culture shows Salmonella, will continue zosyn for now, waiting for final culture report. blood culture repeated from both peripheral and central line shows negative. Per oncology recommedation, will resume eliquis 5mg po bid if her renal function has improved (CrCl > 15). Keep heparin drip now. - Constitutional Vitals: Temp Pulse Resp BP Pulse Ox 98.0 F 95 18 124/83 92 L 09/15/16 11:02 09/15/16 11:02 09/15/16 11:02 09/15/16 11:02 09/15/16 11:02 General appearance: Present: A&O X 3, no acute distress - Head Head exam: Present: atraumatic, normocephalic - Eye Eye exam: Present: PERRL, conjuntiva pink, sclera anicteric Pupils: Present: PERRL - Neck Neck exam general surgery: Present: supple, trachea midline. Absent: lymphadenopathy - Respiratory Respiratory exam: Present: CTAB. Absent: accessory muscle use, rales, rhonchi, wheezes - Cardiovascular Cardiovascular exam: Present: RRR, +S1, +S2. Absent: diastolic murmur, gallop, rubs, systolic murmur - GI/Abdominal GI/Abdominal exam: Present: normal bowel sounds, soft, no peritoneal signs. Absent: distended, tenderness - Extremities Exam Extremities exam: Present: warm, radial pulses palpable and symetrical. Absent : calf tenderness, cyanotic, pedal edema - Neurological Exam Neurological exam: Present: CN II-XII intact, oriented X3, no focal deficits. Absent: pronater drift, facial droop, speech deficit - Skin Skin exam: Present: dry, intact Internal Medicine: Result - Labs CBC & Chem 7: 09/15/16 03:34 09/15/16 03:34 Labs: Short CBC 09/15/16 Range/Units 03:34 WBC 5.6 (4.3-11.1) K/mcL Hgb 8.8 L (11.5-15.4) g/dL Hct 26.4 L (35.3-44.9) % Plt Count 107 L (140-400) K/mcL Neutrophils # 4.3 (1.6-8.9) K/mcL BMP 09/15/16 03:34 Sodium 134 L Potassium 3.8 Chloride 102 Carbon Dioxide 17 L BUN 41 H D Creatinine 6.04 H Glucose 244 H Calcium 8.0 L - ABG Interpretation ABG results: PT/INR, D-dimer PT 12.1 Seconds (9.4-12.1) 09/11/16 22:01 D-Dimer 1094 ng/mLFEU (0-500) H 09/11/16 22:01 Consult Discharge Plan - Plan Referrals: Sidra Cesar MD [Non-Partnered Physician] - 09/21/16 11:00 am
[2016-09-15] MEDS: Insulin DETEMIR 100 UNIT/ML X5UNITS SQ SCH (21:05)
--- NOTE | 2016-09-16 07:23 | Urology Progress Note ---
Date of Encounter: 09/16/16 Time of Encounter: 07:21 - Assessment and Plan (1) Left ureteral stone Current Visit: Yes Status: Acute Assessment and plan: s/p left ureteral stent. Will hold off on treatment for now. (2) UTI (urinary tract infection) Current Visit: No Status: Acute Assessment and plan: Continue antibiotics for salmonella. Qualifiers: Urinary tract infection type: acute cystitis Hematuria presence: without hematuria Qualified Code(s): N30.00 - Acute cystitis without hematuria (3) DOC (acute kidney injury) Current Visit: No Status: Acute Assessment and plan: Plan per nephrology. Progress Note Narrative: 61 year old woman with left ureteral stones and UTI. Her creatinine is pending today. CT showed good position of the stent and bowen catheter. She has been oliguric. Nephrology has been following. Objective Initial Vital Signs Temp Pulse Resp BP Pulse Ox 98.8 F 106 16 137/83 96 09/11/16 20:45 09/11/16 20:45 09/11/16 20:45 09/11/16 20:45 09/11/16 20:45 - General physical appearance Present: well developed, well nourished, no distress - Respiratory Present: normal respiratory effort - Abdomen Present: soft - Genitourinary Urine Appearance: Present: Hematuria (Mild light pink urine color. UOP appears improved today.) - Labs 09/15/16 03:34 09/15/16 03:34 Consult Discharge Plan - Plan Referrals: Sidra Cesar MD [Non-Partnered Physician] - 09/21/16 11:00 am
[2016-09-16] MEDS ORDERED: D5% in Water (Mini-Bag+) 100 ML IVPB ONE (09:15)
[2016-09-16] MEDS: Piperacillin/Tazobactam 3.375 GM in D5% in Water (Mini-Bag+) 100 ML IVPB SCH ×2 (09:23→21:38)
[2016-09-16] MEDS: Gabapentin 400 MG CAPSULE PO SCH ×3 (09:23→21:38)
[2016-09-16] MEDS: BuPROPion XL (24 HR) 150 MG TABLET PO SCH (09:23)
[2016-09-16] MEDS: Magnesium Oxide 400 MG TABLET PO SCH (09:23)
[2016-09-16] MEDS: Pantoprazole 40 MG VIAL IVP SCH (09:23)
[2016-09-16] MEDS: Cholestyramine 4 GM POWD.PACK PO SCH ×2 (09:23→21:40)
[2016-09-16] MEDS: Insulin DETEMIR 100 UNIT/ML X5UNITS SQ SCH ×2 (09:26→21:39)
[2016-09-16] MEDS: Insulin LISPRO 300 UNITS/3 ML VIAL SQ SCH ×4 (09:26→21:39)
--- NOTE | 2016-09-16 09:29 | Nephrology Progress Note ---
Date of Encounter: 09/16/16 Time of Encounter: 09:15 - Assessment and Plan (1) DOC (acute kidney injury) Current Visit: No Status: Acute DOC, multifactorial etiology. No current renal fct, lab in to redraw. Documented urine output yesterday 275cc and 200cc in bag this AM. Discussed with patient possibilty of needing dialysis, pending lab results. In agreement. Continue IV fluids at present. Subjective Interval history: Alert, states feeling okay. States ate a little breakfast but does not really have appetite. Staff and family noticing some confusion. Objective - Vital Signs Vital signs: Vital Signs Temp Pulse Resp BP Pulse Ox 09/16/16 06:34 98.1 F 86 18 160/95 96 09/16/16 03:45 98.0 F 86 18 141/90 100 09/15/16 23:21 98.4 F 85 18 118/79 100 09/15/16 19:17 98.2 F 87 18 112/77 100 09/15/16 14:27 97.8 F 93 18 114/75 93 L 09/15/16 11:02 98.0 F 95 18 124/83 92 L Intake and Output 09/15/16 09/16/16 09/16/16 23:59 07:59 15:59 Intake Total 500 / 500 1100 / 1100 240 / 240 Output Total 225 / 225 150 / 150 Balance 275 / 275 950 / 950 240 / 240 Intake: IV Fluids 500 / 500 100 / 100 Heparin 25,000 UNIT/500 500 / 500 ML D5W 25,000 unit In 500 ml @ 14 UNIT/KG/HR 33. 022 mls/hr IVC .Q15H9M DOC Rx#:[id number] Zosyn 3.375 GM In 100 / 100 Dextrose 5% (Minibag+) 100 ML 100 ML @ 25 mls/hr IVPB Q12H DOC Rx#: [id number] Oral 0 / 0 1000 / 1000 240 / 240 Output: Catheter 225 / 225 150 / 150 Other: Meal Breakfast Percent of Meal Consumed 5% # Bowel Movements 0 Weight 120.9 kg Blood Glucose* 240 182 Patient Weight 09/16/16 23:59 Weight 120.9 kg - General Appearance General appearance: Present: well-developed, well-nourished, appears started age , obese EENT: Present: mucous membranes moist Neck: Present: no JVD Respiratory: Present: clear Cardiology: Present: regular rate, regular rhythm Additional Comments: generalized mild pitting edema. Gastrointestinal: Present: normoactive bowel sounds, no tenderness Integumentary: Present: warm and dry Psychiatric: Present: mood/affect appropriate, cooperative - Lab 09/15/16 03:34 09/15/16 03:34 Most recent lab results Calcium 8.0 mg/dL (8.6-10.8) L 09/15/16 03:34 Consult Discharge Plan - Plan Referrals: Sidra Cesar MD [Non-Partnered Physician] - 09/21/16 11:00 am
[2016-09-16 10:14] LABS: Albumin 2.1 g/dL (3.5-5.0); Albumin/Globulin Ratio 0.6 (1.1-2.2); Bilirubin,Total 0.8 mg/dL (0.2-1.2); Calcium 7.8 mg/dL (8.6-10.8); Globulin 3.8 g/dL (2.4-3.5); Potassium 4.1 mEq/L (3.5-4.5); Total Protein 5.9 g/dL (6.0-8.3)
[2016-09-16 10:22] LABS: Hematocrit 26.3 % (35.3-44.9); Mean Corpuscular HGB Conc 34.2 g/dL (31.6-35.5); Mean Corpuscular Hemoglobin 33.7 pg (28.0-33.3); Mean Corpuscular Volume 98.5 fL (83.0-100.0); Monocytes # 0.8 K/mcL (0.0-1.3); Platelet Count 113 K/mcL (140-400); Red Blood Count 2.67 M/mcL (3.82-4.97); Red Cell Distribution Width 16.8 % (11.5-14.5)
[2016-09-16 10:58] LABS: Eosinophils # 0.2 K/mcL (0.0-0.6); Lymphocytes # 1.2 K/mcL (0.6-4.6); Neutrophils # 3.1 K/mcL (1.6-8.9); Platelet Estimate Decreased (Normal)
--- NOTE | 2016-09-16 11:17 | Internal Med Progress Note ---
Date of Encounter: 09/16/16 Time of Encounter: 09:00 - Assessment and plan (1) Ureterolithiasis Current Visit: Yes Status: Acute Assessment and plan: Had urology procedure done. Continue pain management. (2) Hydronephrosis Current Visit: Yes Status: Acute Assessment and plan: Patient has hydronephrosis, which is caused by ureteral stone. Urology on case and did the stenting. Resolved after stent. Qualifiers: Hydronephrosis type: with ureteral calculous obstruction Qualified Code(s) : N13.2 - Hydronephrosis with renal and ureteral calculous obstruction (3) CAD (coronary artery disease) Current Visit: Yes Status: Acute Assessment and plan: Stable. Continue home medication. Qualifiers: Coronary Disease-Associated Artery/Lesion type: [place] artery [place] vs. transplanted heart: [place] heart Associated angina: without angina Qualified Code(s): I25.10 - Atherosclerotic heart disease of [place] coronary artery without angina pectoris (4) Breast cancer in female Current Visit: No Status: Acute Assessment and plan: Patient was diagnosed breast cancer. She had a surgery in December 2015. She has been following oncology in [place] Qualifiers: Breast location: unspecified site of breast Laterality: right Qualified Code(s): C50.911 - Malignant neoplasm of unspecified site of right female breast (5) Diabetes Current Visit: No Status: Acute Assessment and plan: We will cover patient with a sliding scale. Glucose level is still high, adjusted the insulin dose to medium correction dose HS, High correction dose AC. Change basal insulin levemir 15 units BID. Patient was not on insulin use before, go over her lab previously her sugar level is not well controlled. She will possibly need a long-term insulin upon discharge. Qualifiers: Diabetes mellitus type: type 2 Diabetes mellitus complication status: without complication Diabetes mellitus snf insulin use: without snf use Qualified Code(s): E11.9 - Type 2 diabetes mellitus without complications (6) DVT (deep venous thrombosis) Current Visit: No Status: Chronic Assessment and plan: Patient was reported DVT. She has history of DVT and was on Eliquis. Keep patient on heparin drip for now. Oncology consult appreciated. Will switch back to eliquis later. Patient is at high risk because she is on heparin drip, which needed close monitoring. Qualifiers: DVT location: lower extremity Affected thrombotic vein of extremity: femoral Laterality: bilateral Chronicity: unspecified Qualified Code(s): I82.413 - Acute embolism and thrombosis of femoral vein, bilateral (7) Urinary tract infection Current Visit: No Status: Resolved Assessment and plan: Urine culture shows Salmonella. On zosyn now. Waiting for final report. Qualifiers: Urinary tract infection type: acute cystitis Qualified Code(s): N30.00 - Acute cystitis without hematuria (8) DVT prophylaxis Current Visit: Yes Status: Acute Assessment and plan: Patient is on heparin drip for now. (9) DOC (acute kidney injury) Current Visit: No Status: Acute Assessment and plan: Worsening creatinine level. Had US renal which shows no obstruction. Will continue IVF, hold metformin and NSAID. F/U renal function. Nephrology consult recommendation is highly appreciated and will be followed. Patient possibly need dialysis. (10) Bacteremia Current Visit: Yes Status: Acute Assessment and plan: Blood culture positive for Salmonella. On Zosyn. waiting for the final result. Repeat blood culture negative. Patient has a port on the left chest, no skin erythema, edema, or tenderness, blood culture from the catheter negative , less likely catheter infection, will keep the catheter. - Time Spent With Patient Greater than 35 minutes - Subjective Interval history: Patient is a 61-year-old female admitted for left flank pain. She was found left ureteral stone. Her past medical history is significant for asthma, breast cancer, CHF, COPD, CAD, diabetes, fibromyalgia, hyperlipidemia, hypertension, osteoporosis, thyroid disease. Patient was seen and examined. She has No nausea or vomiting. No abd pain. No fever, vitals stable. renal function keep getting worse , nephrology consult on case and input is highly appreciated. Possibly patient needs dialysis. Blood culture and urine culture shows Salmonella, will continue zosyn for now, waiting for final culture report. blood culture repeated from both peripheral and central line shows negative. Per oncology recommedation, will resume eliquis 5mg po bid if her renal function has improved (CrCl > 15). Keep heparin drip now. - Constitutional Vitals: Temp Pulse Resp BP Pulse Ox 98.1 F 86 18 160/95 96 09/16/16 06:34 09/16/16 06:34 09/16/16 06:34 09/16/16 06:34 09/16/16 06:34 General appearance: Present: A&O X 3, no acute distress - Head Head exam: Present: atraumatic, normocephalic - Eye Eye exam: Present: PERRL, conjuntiva pink, sclera anicteric Pupils: Present: PERRL - Neck Neck exam general surgery: Present: supple, trachea midline. Absent: lymphadenopathy - Respiratory Respiratory exam: Present: CTAB. Absent: accessory muscle use, rales, rhonchi, wheezes - Cardiovascular Cardiovascular exam: Present: RRR, +S1, +S2. Absent: diastolic murmur, gallop, rubs, systolic murmur - GI/Abdominal GI/Abdominal exam: Present: normal bowel sounds, soft, no peritoneal signs. Absent: distended, tenderness - Extremities Exam Extremities exam: Present: warm, radial pulses palpable and symetrical. Absent : calf tenderness, cyanotic, pedal edema - Neurological Exam Neurological exam: Present: CN II-XII intact, oriented X3, no focal deficits. Absent: pronater drift, facial droop, speech deficit - Skin Skin exam: Present: dry, intact Internal Medicine: Result - Labs CBC & Chem 7: 09/16/16 09:45 09/16/16 09:45 Labs: Short CBC 09/16/16 Range/Units 09:45 WBC 5.5 (4.3-11.1) K/mcL Hgb 9.0 L (11.5-15.4) g/dL Hct 26.3 L (35.3-44.9) % Plt Count 113 L (140-400) K/mcL Neutrophils # 3.1 (1.6-8.9) K/mcL BMP 09/16/16 09:45 Sodium 129 L Potassium 4.1 Chloride 98 Carbon Dioxide 16 L BUN 49 H Creatinine 8.01 H Glucose 215 H Calcium 7.8 L Liver Function 09/16/16 Range/Units 09:45 Total Bilirubin 0.8 (0.2-1.2) mg/dL AST 60 H (5-34) Units/L ALT 36 (0-55) Units/L Alkaline Phosphatase 181 H (38-126) Units/L Albumin 2.1 L (3.5-5.0) g/dL - ABG Interpretation ABG results: PT/INR, D-dimer PT 12.1 Seconds (9.4-12.1) 01/09/17 22:01 D-Dimer 1094 ng/mLFEU (0-500) H 09/11/16 22:01 Consult Discharge Plan - Plan Referrals: Sidra Cesar MD [Non-Partnered Physician] - 09/21/16 11:00 am
[2016-09-16] MEDS: Heparin 25,000 UNIT/500 ML D5W 25,000 UNIT/500 ML MLS IVC SCH (15:50)
[2016-09-16] MEDS: 0.9 % Sodium Chloride 1,000 ML IVC SCH (15:51)
[2016-09-16] MEDS: *HR* Heparin 5,000 UNIT/ML VIAL IVP PRN (18:51)
[2016-09-16] MEDS: Albuterol 2.5 MG/3 ML NEBULIZER IH PRN (20:45)
[2016-09-17] MEDS: Heparin 25,000 UNIT/500 ML D5W 25,000 UNIT/500 ML MLS IVC SCH ×3 (00:36→20:45)
[2016-09-17 03:25] LABS: Red Cell Distribution Width 16.9 % (11.5-14.5)
[2016-09-17 03:27] LABS: Basophils % 0.4 %; Eosinophils # 0.1 K/mcL (0.0-0.6); Hemoglobin 8.7 g/dL (11.5-15.4); Immature Granulocytes % 9.9 % (0-4); Immature Platelets 1.9 % (1.1-6.1); Lymphocytes # 0.9 K/mcL (0.6-4.6); Lymphocytes % 18.1 %; Mean Corpuscular HGB Conc 33.5 g/dL (31.6-35.5); Mean Corpuscular Hemoglobin 32.6 pg (28.0-33.3); Mean Corpuscular Volume 97.4 fL (83.0-100.0); Mean Platelet Volume 9.5 fL (9.4-12.4); Monocytes # 0.9 K/mcL (0.0-1.3); Monocytes % 17.1 %; Platelet Count 116 K/mcL (140-400); Red Blood Count 2.67 M/mcL (3.82-4.97); Segmented Neutrophils % 52.5 %
[2016-09-17 03:28] LABS: Neutrophils # 2.6 K/mcL (1.6-8.9)
[2016-09-17 03:36] LABS: Calcium 7.8 mg/dL (8.6-10.8); Potassium 4.2 mEq/L (3.5-4.5)
[2016-09-17 03:52] LABS: Platelet Estimate Slight Decrease (Normal)
[2016-09-17] MEDS: Gabapentin 400 MG CAPSULE PO SCH ×3 (07:25→22:19)
[2016-09-17] MEDS: Cholestyramine 4 GM POWD.PACK PO SCH ×2 (07:25→22:19)
[2016-09-17] MEDS: BuPROPion XL (24 HR) 150 MG TABLET PO SCH (07:26)
[2016-09-17] MEDS: Magnesium Oxide 400 MG TABLET PO SCH (07:26)
[2016-09-17] MEDS: Insulin DETEMIR 100 UNIT/ML X5UNITS SQ SCH ×2 (07:29→22:19)
[2016-09-17] MEDS: Piperacillin/Tazobactam 3.375 GM in D5% in Water (Mini-Bag+) 100 ML IVPB SCH (07:29)
[2016-09-17] MEDS: Insulin LISPRO 300 UNITS/3 ML VIAL SQ SCH ×4 (07:38→22:10)
--- NOTE | 2016-09-17 08:44 | Nephrology Progress Note ---
Date of Encounter: 09/17/16 Time of Encounter: 08:25 - Assessment and Plan (1) DOC (acute kidney injury) Current Visit: No Status: Acute DOC, multifactorial etiology. Renal fct worse although progressing more slowly, may be plateauing. Urine output 900cc yesterday. Discussed with patient possibilty of needing dialysis, will monitor morning labs. Acidosis worsening, will change IV fluids to D5W with 3 amps Bicarb at 50cc/hr. 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 States feels okay. No new complaints. Objective - Vital Signs Vital signs: Vital Signs Temp Pulse Resp BP Pulse Ox 09/17/16 07:43 98.8 F 98 18 131/86 96 09/17/16 03:36 98.0 F 85 15 119/75 100 09/17/16 01:03 97.4 F L 81 18 124/78 100 09/16/16 21:26 98.1 F 82 18 139/89 100 09/16/16 20:49 18 100 09/16/16 14:13 98.4 F 85 20 131/84 97 09/16/16 11:06 98.3 F 95 18 137/84 94 L Intake and Output 09/16/16 09/17/16 09/17/16 23:59 07:59 15:59 Intake Total 150 / 150 550 / 550 Output Total 450 / 450 900 / 900 Balance -300 / -300 -350 / -350 Intake: IV Fluids 150 / 150 450 / 450 Heparin 25,000 UNIT/500 150 / 150 350 / 350 ML D5W 25,000 unit In 500 ml @ 14 UNIT/KG/HR 33. 022 mls/hr IVC .Q15H9M DOC Rx#:[id number] Zosyn 3.375 GM In 100 / 100 Dextrose 5% (Minibag+) 100 ML 100 ML @ 25 mls/hr IVPB Q12H DOC Rx#: [id number] Oral 0 / 0 100 / 100 Output: Catheter 450 / 450 900 / 900 Other: # Bowel Movements 0 Blood Glucose* 222 159 - General Appearance General appearance: Present: well-developed, well-nourished, appears started age , obese EENT: Present: mucous membranes moist Neck: Present: no JVD Respiratory: Present: clear Cardiology: Present: regular rate, regular rhythm Additional Comments: mild pitting in LE, buttock, thighs. Gastrointestinal: Present: normoactive bowel sounds, no tenderness Integumentary: Present: warm and dry Neurologic: Present: alert and oriented x3 Psychiatric: Present: mood/affect appropriate, cooperative - Lab 09/17/16 03:10 09/17/16 03:10 Most recent lab results Calcium 7.8 mg/dL (8.6-10.8) L 09/17/16 03:10 Consult Discharge Plan - Plan Referrals: Sidra Cesar MD [Non-Partnered Physician] - 09/21/16 11:00 am
[2016-09-17] MEDS: Albuterol 2.5 MG/3 ML NEBULIZER IH PRN ×2 (08:54→23:02)
[2016-09-17] MEDS ORDERED: Sodium Bicarbonate 150 MEQ in D5% in Water 1,000 ML IVC PRN (08:57)
--- NOTE | 2016-09-17 09:28 | Urology Progress Note ---
Date of Encounter: 09/17/16 Time of Encounter: 09:26 - Assessment and Plan (1) Left ureteral stone Current Visit: Yes Status: Acute Assessment and plan: s/p left ureteral stent. (2) UTI (urinary tract infection) Current Visit: No Status: Acute Assessment and plan: Continue antibiotics for salmonella. Qualifiers: Urinary tract infection type: acute cystitis Hematuria presence: without hematuria Qualified Code(s): N30.00 - Acute cystitis without hematuria (3) DOC (acute kidney injury) Current Visit: No Status: Acute Assessment and plan: Plan per nephrology. May need to get access for HD. UOP improving. Progress Note Narrative: 61 year old woman with left ureteral stones and UTI. Her creatinine has worsened again to 8.6. CT showed good position of the stent and bowen catheter. Urine output seems to be improving. Nephrology has been following. Objective Initial Vital Signs Temp Pulse Resp BP Pulse Ox 98.8 F 106 16 137/83 96 09/11/16 20:45 09/11/16 20:45 09/11/16 20:45 09/11/16 20:45 09/11/16 20:45 - General physical appearance Present: no distress - Respiratory Present: normal expansion - Abdomen Present: soft - Genitourinary Urine Appearance: Present: Clear, Hematuria (clear to light pink urine in catheter.) - Labs 09/17/16 03:10 09/17/16 03:10 Diabetes panel 09/16/16 09/17/16 Range/Units 09:45 03:10 Sodium 129 L 130 L (136-145) mEq/L Potassium 4.1 4.2 (3.5-4.5) mEq/L Chloride 98 100 (98-109) mEq/L Carbon Dioxide 16 L 13 L (19-29) mEq/L BUN 49 H 52 H (7-20) mg/dL Creatinine 8.01 H 8.60 H (0.57-1.11) mg/dL Glucose 215 H 179 H (70-99) mg/dL Calcium 7.8 L 7.8 L (8.6-10.8) mg/dL AST 60 H (5-34) Units/L ALT 36 (0-55) Units/L Alkaline Phosphatase 181 H (38-126) Units/L Albumin 2.1 L (3.5-5.0) g/dL Calcium panel 09/16/16 09/17/16 Range/Units 09:45 03:10 Calcium 7.8 L 7.8 L (8.6-10.8) mg/dL Albumin 2.1 L (3.5-5.0) g/dL Pituitary panel 09/16/16 09/17/16 Range/Units 09:45 03:10 Sodium 129 L 130 L (136-145) mEq/L Potassium 4.1 4.2 (3.5-4.5) mEq/L Chloride 98 100 (98-109) mEq/L Carbon Dioxide 16 L 13 L (19-29) mEq/L BUN 49 H 52 H (7-20) mg/dL Creatinine 8.01 H 8.60 H (0.57-1.11) mg/dL Glucose 215 H 179 H (70-99) mg/dL Calcium 7.8 L 7.8 L (8.6-10.8) mg/dL Adrenal panel 09/16/16 09/17/16 Range/Units 09:45 03:10 Sodium 129 L 130 L (136-145) mEq/L Potassium 4.1 4.2 (3.5-4.5) mEq/L Chloride 98 100 (98-109) mEq/L Carbon Dioxide 16 L 13 L (19-29) mEq/L BUN 49 H 52 H (7-20) mg/dL Creatinine 8.01 H 8.60 H (0.57-1.11) mg/dL Glucose 215 H 179 H (70-99) mg/dL Calcium 7.8 L 7.8 L (8.6-10.8) mg/dL Total Bilirubin 0.8 (0.2-1.2) mg/dL AST 60 H (5-34) Units/L ALT 36 (0-55) Units/L Alkaline Phosphatase 181 H (38-126) Units/L Albumin 2.1 L (3.5-5.0) g/dL Consult Discharge Plan - Plan Referrals: Sidra Cesar MD [Non-Partnered Physician] - 09/21/16 11:00 am
[2016-09-17] MEDS ORDERED: D5% in Water 1,000 ML IV PRN (10:41)
--- NOTE | 2016-09-17 10:58 | Internal Med Progress Note ---
Date of Encounter: 09/17/16 Time of Encounter: 09:00 - Assessment and plan (1) Ureterolithiasis Current Visit: Yes Status: Acute Assessment and plan: Had urology procedure done. Continue pain management. (2) Hydronephrosis Current Visit: Yes Status: Acute Assessment and plan: Patient has hydronephrosis, which is caused by ureteral stone. Urology on case and did the stenting. Resolved after stent. Qualifiers: Hydronephrosis type: with ureteral calculous obstruction Qualified Code(s) : N13.2 - Hydronephrosis with renal and ureteral calculous obstruction (3) CAD (coronary artery disease) Current Visit: Yes Status: Acute Assessment and plan: Stable. Continue home medication. Qualifiers: Coronary Disease-Associated Artery/Lesion type: [place] artery [place] vs. transplanted heart: [place] heart Associated angina: without angina Qualified Code(s): I25.10 - Atherosclerotic heart disease of [place] coronary artery without angina pectoris (4) Breast cancer in female Current Visit: No Status: Acute Assessment and plan: Patient was diagnosed breast cancer. She had a surgery in December 2015. She has been following oncology in [place] Qualifiers: Breast location: unspecified site of breast Laterality: right Qualified Code(s): C50.911 - Malignant neoplasm of unspecified site of right female breast (5) Diabetes Current Visit: No Status: Acute Assessment and plan: We will cover patient with a sliding scale. Glucose level is still high, adjusted the insulin dose to medium correction dose HS, High correction dose AC. Change basal insulin levemir 15 units BID. Patient was not on insulin use before, go over her lab previously her sugar level is not well controlled. She will possibly need a long-term insulin upon discharge. Qualifiers: Diabetes mellitus type: type 2 Diabetes mellitus complication status: without complication Diabetes mellitus fdc insulin use: without fdc use Qualified Code(s): E11.9 - Type 2 diabetes mellitus without complications (6) DVT (deep venous thrombosis) Current Visit: No Status: Chronic Assessment and plan: Patient was reported DVT. She has history of DVT and was on Eliquis. Keep patient on heparin drip for now. Oncology consult appreciated. Will switch back to eliquis later. Patient is at high risk because she is on heparin drip, which needed close monitoring. Qualifiers: DVT location: lower extremity Affected thrombotic vein of extremity: femoral Laterality: bilateral Chronicity: unspecified Qualified Code(s): I82.413 - Acute embolism and thrombosis of femoral vein, bilateral (7) Urinary tract infection Current Visit: No Status: Resolved Assessment and plan: Urine culture shows Salmonella. On rocephin per sensitivity. Qualifiers: Urinary tract infection type: acute cystitis Qualified Code(s): N30.00 - Acute cystitis without hematuria (8) DVT prophylaxis Current Visit: Yes Status: Acute Assessment and plan: Patient is on heparin drip for now. (9) DOC (acute kidney injury) Current Visit: No Status: Acute Assessment and plan: Worsening creatinine level. Had US renal which shows no obstruction. Will continue IVF, hold metformin and NSAID. F/U renal function. Nephrology consult recommendation is highly appreciated and will be followed. Patient possibly need dialysis. (10) Bacteremia Current Visit: Yes Status: Acute Assessment and plan: Blood culture positive for Salmonella. On rocephin per sensitivity. Repeat blood culture negative. Patient has a port on the left chest, no skin erythema , edema, or tenderness, blood culture from the catheter negative, less likely catheter infection, will keep the catheter. (11) Altered mental status Current Visit: Yes Status: Acute Assessment and plan: Patient is more confused. Her calcium level is not high. Consider her mental status changes is due to metabolic disorders (acidosis and uremia), will continue closely monitoring Qualifiers: Altered mental status type: transient alteration of awareness Qualified Code(s): R40.4 - Transient alteration of awareness - Time Spent With Patient Greater than 35 minutes - Subjective Interval history: Patient is a 61-year-old female admitted for left flank pain. She was found left ureteral stone. Her past medical history is significant for asthma, breast cancer, CHF, COPD, CAD, diabetes, fibromyalgia, hyperlipidemia, hypertension, osteoporosis, thyroid disease. Patient was seen and examined. She is confused, oriented to time and person but not place. She has No nausea or vomiting. No abd pain. No fever, vitals stable. renal function keep getting worse , nephrology consult on case and input is highly appreciated. Possibly patient needs dialysis. Blood culture and urine culture shows Salmonella, Sensitive to Rocephin, will change Abx to rocephin. Per oncology recommedation, will resume eliquis 5mg po bid if her renal function has improved (CrCl > 15). Keep heparin drip now. - Constitutional Vitals: Temp Pulse Resp BP Pulse Ox 98.8 F 98 18 131/86 96 09/17/16 07:43 09/17/16 07:43 09/17/16 08:54 09/17/16 07:43 09/17/16 08:54 General appearance: Present: A&O X 2, no acute distress - Head Head exam: Present: atraumatic, normocephalic - Eye Eye exam: Present: PERRL, conjuntiva pink, sclera anicteric Pupils: Present: PERRL - Neck Neck exam general surgery: Present: supple, trachea midline. Absent: lymphadenopathy - Respiratory Respiratory exam: Present: CTAB. Absent: accessory muscle use, rales, rhonchi, wheezes - Cardiovascular Cardiovascular exam: Present: RRR, +S1, +S2. Absent: diastolic murmur, gallop, rubs, systolic murmur - GI/Abdominal GI/Abdominal exam: Present: normal bowel sounds, soft, no peritoneal signs. Absent: distended, tenderness - Extremities Exam Extremities exam: Present: warm, radial pulses palpable and symetrical. Absent : calf tenderness, cyanotic, pedal edema - Neurological Exam Neurological exam: Present: CN II-XII intact, oriented X3, no focal deficits. Absent: pronater drift, facial droop, speech deficit - Skin Skin exam: Present: dry, intact Internal Medicine: Result - Labs CBC & Chem 7: 09/17/16 03:10 09/17/16 03:10 Labs: Short CBC 09/16/16 09/17/16 Range/Units 09:45 03:10 WBC 5.5 5.0 (4.3-11.1) K/mcL Hgb 9.0 L 8.7 L (11.5-15.4) g/dL Hct 26.3 L 26.0 L (35.3-44.9) % Plt Count 113 L 116 L (140-400) K/mcL Neutrophils # 3.1 2.6 (1.6-8.9) K/mcL BMP 09/17/16 03:10 Sodium 130 L Potassium 4.2 Chloride 100 Carbon Dioxide 13 L BUN 52 H Creatinine 8.60 H Glucose 179 H Calcium 7.8 L - ABG Interpretation ABG results: PT/INR, D-dimer PT 12.1 Seconds (9.4-12.1) 09/11/16 22:01 D-Dimer 1094 ng/mLFEU (0-500) H 09/11/16 22:01 Consult Discharge Plan - Plan Referrals: Sidra Cesar MD [Non-Partnered Physician] - 09/21/16 11:00 am
[2016-09-17] MEDS: Sodium Bicarbonate 150 MEQ in D5% in Water 1,000 ML IVC SCH (12:21)
[2016-09-17] MEDS: *HR* OxyCODONE/APAP 5/325 TABLET PO PRN (15:21)
[2016-09-17 23:37] LABS: Calcium 7.9 mg/dL (8.6-10.8); Potassium 4.3 mEq/L (3.5-4.5)
[2016-09-18] MEDS ORDERED: Ipratropium/Albuterol Neb 3 ML IH ONE (00:19)
[2016-09-18 01:10] LABS: ABG Base Excess -9.1 mEq/L (-2.0 to 3.0); ABG HCO3 15.5 mEQ/L (21-27); ABG Oxygen Saturation 96 % (95-98); ABG PCO2 28 mmHg (35-45); ABG PH 7.35 pH Units (7.32-7.45); ABG PO2 86 mmHg (85-104); ABG TCO2 16.4 mEq/L (20-26); Blood Gas FiO2 28 %
[2016-09-18 03:58] LABS: Eosinophils # 0.1 K/mcL (0.0-0.6); Hematocrit 25.5 % (35.3-44.9); Hemoglobin 8.6 g/dL (11.5-15.4); Mean Corpuscular HGB Conc 33.7 g/dL (31.6-35.5); Mean Corpuscular Hemoglobin 32.7 pg (28.0-33.3); Mean Platelet Volume 9.5 fL (9.4-12.4); Platelet Count 105 K/mcL (140-400); Red Blood Count 2.63 M/mcL (3.82-4.97); Red Cell Distribution Width 16.6 % (11.5-14.5)
[2016-09-18 04:15] LABS: Calcium 7.8 mg/dL (8.6-10.8); Potassium 4.2 mEq/L (3.5-4.5)
[2016-09-18 04:48] LABS: Lymphocytes # 0.9 K/mcL (0.6-4.6); Monocytes # 0.9 K/mcL (0.0-1.3); Neutrophils # 4.3 K/mcL (1.6-8.9); Platelet Estimate Decreased (Normal)
[2016-09-18] MEDS: Gabapentin 400 MG CAPSULE PO SCH ×3 (07:34→21:19)
[2016-09-18] MEDS: Magnesium Oxide 400 MG TABLET PO SCH (07:34)
[2016-09-18] MEDS: BuPROPion XL (24 HR) 150 MG TABLET PO SCH (07:34)
[2016-09-18] MEDS: Cholestyramine 4 GM POWD.PACK PO SCH ×2 (07:36→21:20)
--- NOTE | 2016-09-18 08:37 | Nephrology Progress Note ---
Date of Encounter: 09/18/16 Time of Encounter: 08:10 - Assessment and Plan (1) DOC (acute kidney injury) Current Visit: No Status: Acute DOC, multifactorial etiology. Factors include contrast-induced nephropathy urinary tract infection ureteral stone with hydronephrosis and outpatient consumption of etodolac. Renal fct seems to have plateaued. Excellent urine output, documented 2000cc. Unclear events surrounding placement on CPAP. No event notes. CXR shows no acute cardiopulmonary process. ABGs not reflective of PE. On Heparin gtt. VQ scan scheduled for later today. Will continue on Bicarb gtt. No HD at present time. Subjective Interval history: On CPAP, daughter at bedside. States became SOB last night. Staff states to have VQ scan later today. Objective - Vital Signs Vital signs: Vital Signs Temp Pulse Resp BP Pulse Ox 09/18/16 08:09 99.6 F 91 20 147/81 09/18/16 04:23 99.3 F 87 20 121/76 100 09/18/16 01:34 98.7 F 83 20 128/78 100 09/18/16 01:05 18 100 09/17/16 23:02 16 100 09/17/16 19:39 98.5 F 82 20 129/77 95 09/17/16 15:23 99.5 F 82 20 146/85 96 09/17/16 10:50 99.1 F 87 18 130/85 95 09/17/16 08:54 18 96 Intake and Output 09/17/16 09/18/16 09/18/16 23:59 07:59 15:59 Intake Total 500 / 500 245 / 245 Output Total 750 / 750 635 / 635 550 / 550 Balance -250 / -250 -390 / -390 -550 / -550 Intake: IV Fluids 500 / 500 245 / 245 Heparin 25,000 UNIT/500 500 / 500 245 / 245 ML D5W 25,000 unit In 500 ml @ 14 UNIT/KG/HR 33. 022 mls/hr IVC .Q15H9M DOC Rx#:[id number] Oral 0 / 0 0 / 0 Output: Urine 10 / 10 Urethral ([place]) 10 10 Catheter 750 / 750 625 / 625 550 / 550 Other: Blood Glucose* 182 193 - General Appearance General appearance: Present: well-developed, well-nourished, appears started age , obese EENT: Present: mucous membranes moist Neck: Present: no JVD Respiratory: Present: clear Cardiology: Present: regular rate, regular rhythm Additional Comments: 1+ pitting Gastrointestinal: Present: normoactive bowel sounds, no tenderness Integumentary: Present: warm and dry Neurologic: Present: alert and oriented x3 Psychiatric: Present: mood/affect appropriate, cooperative - Lab 09/18/16 03:45 09/18/16 03:45 Most recent lab results ABG pH 7.35 pH Units (7.32-7.45) 09/18/16 01:00 ABG pCO2 28 mmHg (35-45) L 09/18/16 01:00 ABG pO2 86 mmHg (85-104) 09/18/16 01:00 ABG HCO3 15.5 mEQ/L (21-27) L 09/18/16 01:00 ABG O2 Saturation 96 % (95-98) 09/18/16 01:00 Calcium 7.8 mg/dL (8.6-10.8) L 09/18/16 03:45 Consult Discharge Plan - Plan Referrals: Sidra Cesar MD [Non-Partnered Physician] - 09/21/16 11:00 am
[2016-09-18] MEDS: Insulin LISPRO 300 UNITS/3 ML VIAL SQ SCH ×4 (08:51→21:06)
[2016-09-18] MEDS: Sodium Bicarbonate 150 MEQ in D5% in Water 1,000 ML IVC SCH (10:07)
[2016-09-18] MEDS: Insulin DETEMIR 100 UNIT/ML X5UNITS SQ SCH ×2 (10:08→21:19)
[2016-09-18] MEDS: Heparin 25,000 UNIT/500 ML D5W 25,000 UNIT/500 ML MLS IVC SCH (10:52)
--- NOTE | 2016-09-18 15:15 | Internal Med Progress Note ---
Date of Encounter: 09/18/16 Time of Encounter: 09:00 - Assessment and plan (1) Ureterolithiasis Current Visit: Yes Status: Acute Assessment and plan: Had urology procedure done. Continue pain management. (2) Hydronephrosis Current Visit: Yes Status: Acute Assessment and plan: Patient has hydronephrosis, which is caused by ureteral stone. Urology on case and did the stenting. Resolved after stent. Qualifiers: Hydronephrosis type: with ureteral calculous obstruction Qualified Code(s) : N13.2 - Hydronephrosis with renal and ureteral calculous obstruction (3) CAD (coronary artery disease) Current Visit: Yes Status: Acute Assessment and plan: Stable. Continue home medication. Qualifiers: Coronary Disease-Associated Artery/Lesion type: [place] artery [place] vs. transplanted heart: [place] heart Associated angina: without angina Qualified Code(s): I25.10 - Atherosclerotic heart disease of [place] coronary artery without angina pectoris (4) Breast cancer in female Current Visit: No Status: Acute Assessment and plan: Patient was diagnosed breast cancer. She had a surgery in December 2015. She has been following oncology in [place] Qualifiers: Breast location: unspecified site of breast Laterality: right Qualified Code(s): C50.911 - Malignant neoplasm of unspecified site of right female breast (5) Diabetes Current Visit: No Status: Acute Assessment and plan: We will cover patient with a sliding scale. Glucose level is still high, adjusted the insulin dose to medium correction dose HS, High correction dose AC. Change basal insulin levemir 15 units BID. Patient was not on insulin use before, go over her lab previously her sugar level is not well controlled. She will possibly need a long-term insulin upon discharge. Qualifiers: Diabetes mellitus type: type 2 Diabetes mellitus complication status: without complication Diabetes mellitus fdc insulin use: without fdc use Qualified Code(s): E11.9 - Type 2 diabetes mellitus without complications (6) DVT (deep venous thrombosis) Current Visit: No Status: Chronic Assessment and plan: Patient was reported DVT. She has history of DVT and was on Eliquis. Keep patient on heparin drip for now. Oncology consult appreciated. Will switch back to eliquis later. Patient is at high risk because she is on heparin drip, which needed close monitoring. Qualifiers: DVT location: lower extremity Affected thrombotic vein of extremity: femoral Laterality: bilateral Chronicity: unspecified Qualified Code(s): I82.413 - Acute embolism and thrombosis of femoral vein, bilateral (7) Urinary tract infection Current Visit: No Status: Resolved Assessment and plan: Urine culture shows Salmonella. On rocephin per sensitivity. Qualifiers: Urinary tract infection type: acute cystitis Qualified Code(s): N30.00 - Acute cystitis without hematuria (8) DVT prophylaxis Current Visit: Yes Status: Acute Assessment and plan: Patient is on heparin drip for now. (9) DOC (acute kidney injury) Current Visit: No Status: Acute Assessment and plan: Worsening creatinine level. Had US renal which shows no obstruction. Will continue IVF, hold metformin and NSAID. F/U renal function. Nephrology consult recommendation is highly appreciated and will be followed. Patient possibly need dialysis. (10) Bacteremia Current Visit: Yes Status: Acute Assessment and plan: Blood culture positive for Salmonella. On rocephin per sensitivity. Repeat blood culture negative. Patient has a port on the left chest, no skin erythema , edema, or tenderness, blood culture from the catheter negative, less likely catheter infection, will keep the catheter. (11) Altered mental status Current Visit: Yes Status: Acute Assessment and plan: Patient is more confused. Her calcium level is not high. Consider her mental status changes is due to metabolic disorders (acidosis and uremia), will continue closely monitoring Qualifiers: Altered mental status type: transient alteration of awareness Qualified Code(s): R40.4 - Transient alteration of awareness - Time Spent With Patient Greater than 35 minutes - Subjective Interval history: Patient is a 61-year-old female admitted for left flank pain. She was found left ureteral stone. Her past medical history is significant for asthma, breast cancer, CHF, COPD, CAD, diabetes, fibromyalgia, hyperlipidemia, hypertension, osteoporosis, thyroid disease. Patient was seen and examined. She is still confused, oriented to time and person but not place. She has No nausea or vomiting. No abd pain. No fever, vitals stable. renal function keep getting worse , nephrology consult on case and input is highly appreciated. Patient has good urine output, not plan for hemodialysis today per nephrology. Blood culture and urine culture shows Salmonella, Sensitive to Rocephin, will change Abx to rocephin. Patient has shortness of breath last night and was put on BiPAP. Did a VQ scan today, lower probability for PE. Patient had no shortness of breath this morning when I saw her. - Constitutional Vitals: Temp Pulse Resp BP Pulse Ox 99.2 F 85 20 123/77 100 09/18/16 11:52 09/18/16 11:52 09/18/16 11:52 09/18/16 11:52 09/18/16 04:23 General appearance: Present: A&O X 2, no acute distress - Head Head exam: Present: atraumatic, normocephalic - Eye Eye exam: Present: PERRL, conjuntiva pink, sclera anicteric Pupils: Present: PERRL - Neck Neck exam general surgery: Present: supple, trachea midline. Absent: lymphadenopathy - Respiratory Respiratory exam: Present: CTAB. Absent: accessory muscle use, rales, rhonchi, wheezes - Cardiovascular Cardiovascular exam: Present: RRR, +S1, +S2. Absent: diastolic murmur, gallop, rubs, systolic murmur - GI/Abdominal GI/Abdominal exam: Present: normal bowel sounds, soft, no peritoneal signs. Absent: distended, tenderness - Extremities Exam Extremities exam: Present: pedal edema (Bilateral leg swelling), warm, radial pulses palpable and symetrical. Absent: calf tenderness, cyanotic - Neurological Exam Neurological exam: Present: CN II-XII intact, oriented X3, no focal deficits. Absent: pronater drift, facial droop, speech deficit - Skin Skin exam: Present: dry, intact Internal Medicine: Result - Labs CBC & Chem 7: 09/18/16 03:45 09/18/16 03:45 Labs: Short CBC 09/18/16 Range/Units 03:45 WBC 6.3 (4.3-11.1) K/mcL Hgb 8.6 L (11.5-15.4) g/dL Hct 25.5 L (35.3-44.9) % Plt Count 105 L (140-400) K/mcL Neutrophils # 4.3 (1.6-8.9) K/mcL BMP 09/17/16 09/18/16 23:20 03:45 Sodium 129 L 127 L Potassium 4.3 4.2 Chloride 98 96 L Carbon Dioxide 15 L 15 L BUN 56 H 55 H Creatinine 8.70 H 8.66 H Glucose 180 H 187 H Calcium 7.9 L 7.8 L - ABG Interpretation ABG results: ABG ABG pH 7.35 pH Units (7.32-7.45) 09/18/16 01:00 ABG pCO2 28 mmHg (35-45) L 09/18/16 01:00 ABG pO2 86 mmHg (85-104) 09/18/16 01:00 ABG O2 Saturation 96 % (95-98) 09/18/16 01:00 PT/INR, D-dimer PT 12.1 Seconds (9.4-12.1) 09/11/16 22:01 D-Dimer 1094 ng/mLFEU (0-500) H 09/11/16 22:01 - Impressions Impressions Chest X-Ray 09/18/16 00:30 IMPRESSION: Low lung volumes with slightly rotated patient. Slightly increased interstitial markings bilaterally which may reflect mild edema. Otherwise no acute cardiopulmonary findings. D/ / Catherine Chávez MD / Catherine Chávez MD Interpreting Provider: Catherine Chávez MD Pulmonary Perfusion Imaging 09/18/16 12:30 IMPRESSION: Low Probability for Pulmonary Embolus. D/ / Danielito Davis MD / Danielito Davis MD Interpreting Provider: Danielito Davis MD Consult Discharge Plan - Plan Referrals: Sidra Cesar MD [Non-Partnered Physician] - 09/21/16 11:00 am
--- NOTE | 2016-09-18 16:52 | Urology Progress Note ---
Date of Encounter: 09/18/16 Time of Encounter: 16:51 - Assessment and Plan (1) Left ureteral stone Current Visit: Yes Status: Acute Assessment and plan: Continue stent and bowen. (2) UTI (urinary tract infection) Current Visit: No Status: Acute Assessment and plan: Continue treatment for salmonella. Qualifiers: Urinary tract infection type: acute cystitis Hematuria presence: without hematuria Qualified Code(s): N30.00 - Acute cystitis without hematuria (3) DOC (acute kidney injury) Current Visit: No Status: Acute Assessment and plan: per nephrology. Progress Note Narrative: 61 year old woman with left ureteral stones and UTI. Her creatinine seems to have peaked at 8.7 and is down to 8.66 today. UOP improving. Objective Initial Vital Signs Temp Pulse Resp BP Pulse Ox 98.8 F 106 16 137/83 96 09/11/16 20:45 09/11/16 20:45 09/11/16 20:45 09/11/16 20:45 09/11/16 20:45 - General physical appearance Present: well developed - Respiratory Present: normal expansion - Abdomen Present: soft - Labs 09/18/16 03:45 09/18/16 03:45 Diabetes panel 09/17/16 09/18/16 Range/Units 23:20 03:45 Sodium 129 L 127 L (136-145) mEq/L Potassium 4.3 4.2 (3.5-4.5) mEq/L Chloride 98 96 L (98-109) mEq/L Carbon Dioxide 15 L 15 L (19-29) mEq/L BUN 56 H 55 H (7-20) mg/dL Creatinine 8.70 H 8.66 H (0.57-1.11) mg/dL Glucose 180 H 187 H (70-99) mg/dL Calcium 7.9 L 7.8 L (8.6-10.8) mg/dL Calcium panel 09/17/16 09/18/16 Range/Units 23:20 03:45 Calcium 7.9 L 7.8 L (8.6-10.8) mg/dL Pituitary panel 09/17/16 09/18/16 Range/Units 23:20 03:45 Sodium 129 L 127 L (136-145) mEq/L Potassium 4.3 4.2 (3.5-4.5) mEq/L Chloride 98 96 L (98-109) mEq/L Carbon Dioxide 15 L 15 L (19-29) mEq/L BUN 56 H 55 H (7-20) mg/dL Creatinine 8.70 H 8.66 H (0.57-1.11) mg/dL Glucose 180 H 187 H (70-99) mg/dL Calcium 7.9 L 7.8 L (8.6-10.8) mg/dL Adrenal panel 09/17/16 09/18/16 Range/Units 23:20 03:45 Sodium 129 L 127 L (136-145) mEq/L Potassium 4.3 4.2 (3.5-4.5) mEq/L Chloride 98 96 L (98-109) mEq/L Carbon Dioxide 15 L 15 L (19-29) mEq/L BUN 56 H 55 H (7-20) mg/dL Creatinine 8.70 H 8.66 H (0.57-1.11) mg/dL Glucose 180 H 187 H (70-99) mg/dL Calcium 7.9 L 7.8 L (8.6-10.8) mg/dL Consult Discharge Plan - Plan Referrals: Sidra Cesar MD [Non-Partnered Physician] - 09/21/16 11:00 am
[2016-09-18] MEDS: *HR* OxyCODONE/APAP 5/325 TABLET PO PRN (21:28)
[2016-09-19] MEDS: Heparin 25,000 UNIT/500 ML D5W 25,000 UNIT/500 ML MLS IVC SCH ×2 (02:00→17:05)
[2016-09-19 03:42] LABS: Hematocrit 24.4 % (35.3-44.9); Hemoglobin 8.3 g/dL (11.5-15.4); Mean Corpuscular Hemoglobin 32.7 pg (28.0-33.3); Mean Corpuscular Volume 96.1 fL (83.0-100.0); Mean Platelet Volume 9.5 fL (9.4-12.4); Platelet Count 121 K/mcL (140-400); Red Blood Count 2.54 M/mcL (3.82-4.97); Red Cell Distribution Width 16.1 % (11.5-14.5)
[2016-09-19 03:54] LABS: Potassium 4.2 mEq/L (3.5-4.5)
[2016-09-19] MEDS: (Alendronate Sodium [Alendronate Sodium] 70 MG) PO SCH (04:04)
[2016-09-19 04:12] LABS: Eosinophils # 0.3 K/mcL (0.0-0.6); Monocytes # 0.5 K/mcL (0.0-1.3)
[2016-09-19 04:14] LABS: Platelet Estimate Decreased (Normal)
[2016-09-19] MEDS: Insulin LISPRO 300 UNITS/3 ML VIAL SQ SCH ×4 (08:03→21:08)
[2016-09-19] MEDS: Cholestyramine 4 GM POWD.PACK PO SCH ×2 (08:03→21:08)
[2016-09-19] MEDS: BuPROPion XL (24 HR) 150 MG TABLET PO SCH (08:05)
[2016-09-19] MEDS: Gabapentin 400 MG CAPSULE PO SCH (08:05)
[2016-09-19] MEDS: Insulin DETEMIR 100 UNIT/ML X5UNITS SQ SCH ×2 (08:05→21:09)
[2016-09-19] MEDS: Magnesium Oxide 400 MG TABLET PO SCH (08:05)
--- NOTE | 2016-09-19 08:12 | Nephrology Progress Note ---
Date of Encounter: 09/19/16 Time of Encounter: 08:09 - Assessment and Plan (1) DOC (acute kidney injury) Current Visit: No Status: Acute The patient has acute kidney injury which appears to be multifactorial in etiology. Factors include contrast-induced nephropathy urinary tract infection ureteral stone with hydronephrosis and outpatient consumption of etodolac. Over the past several days the patient's urine output has been increasing. Her creatinine has reached a plateau. This morning her creatinine is actually improved slightly. All of these factors indicate she may be entering the recovery phase of acute kidney injury. For these reasons I have elected not to proceed with dialysis. As long as a trend of improvement continues we will not initiate dialysis. I discussed this at length with the patient's sister and answered all of her questions. The patient does appear to be somnolent at times. This certainly could be a combination of her renal function as well as a lot of sedating medications that she is currently taking. I would suggest reducing the dose of Neurontin because of her severe renal failure. She remains quite edematous. I am going to give her 1 dose of Lasix today to enhance her urine output. (2) Hydronephrosis with renal and ureteral calculous obstruction Current Visit: Yes Status: Acute (3) UTI (urinary tract infection) Current Visit: Yes Status: Acute Qualifiers: Urinary tract infection type: site unspecified Hematuria presence: without hematuria Qualified Code(s): N39.0 - Urinary tract infection, site not specified Subjective Interval history: The patient is sleeping. She awakens easily. She denies any complaints. She denies any shortness of breath. She does have a low-grade temp of 100.4. Urine output is 3.1 L. Creatinine is slightly improved from 8.66 down to 8.21. Objective - Vital Signs Vital signs: Vital Signs Temp Pulse Resp BP Pulse Ox 09/19/16 06:59 100.4 F H 82 18 135/78 96 09/19/16 03:36 98.0 F 84 18 127/75 95 09/19/16 00:43 99.8 F H 82 18 119/71 98 09/18/16 21:07 99.3 F 82 18 135/78 100 09/18/16 19:50 100 09/18/16 16:00 99.3 F 80 18 149/95 98 09/18/16 15:10 96 01/16/17 11:52 99.2 F 85 20 123/77 Intake and Output 09/18/16 09/19/16 09/19/16 23:59 07:59 15:59 Intake Total 0 / 0 500 / 500 Output Total 1400 / 1400 1250 / 1250 Balance -1400 / -1400 -750 / -750 Intake: IV Fluids 500 / 500 Heparin 25,000 UNIT/500 500 / 500 ML D5W 25,000 unit In 500 ml @ 14 UNIT/KG/HR 33. 022 mls/hr IVC .Q15H9M DOC Rx#:[id number] Oral 0 / 0 0 / 0 Output: Catheter 1400 / 1400 1250 / 1250 Other: # Bowel Movements 0 Weight 120.9 kg Blood Glucose* 174 146 Patient Weight 09/19/16 23:59 Weight 120.9 kg - General Appearance Exam: Patient sleeping. She awakens easily. She is in no acute distress. Lungs diminished breath sounds otherwise clear. Heart regular rate and rhythm. There is no friction rub. Abdomen is benign. There is bilateral lower extremity swelling. - Lab 09/19/16 03:30 09/19/16 03:30 Most recent lab results ABG pH 7.35 pH Units (7.32-7.45) 09/18/16 01:00 ABG pCO2 28 mmHg (35-45) L 09/18/16 01:00 ABG pO2 86 mmHg (85-104) 09/18/16 01:00 ABG HCO3 15.5 mEQ/L (21-27) L 09/18/16 01:00 ABG O2 Saturation 96 % (95-98) 09/18/16 01:00 Calcium 8.0 mg/dL (8.6-10.8) L 09/19/16 03:30 Consult Discharge Plan - Plan Referrals: Sidra Cesar MD [Non-Partnered Physician] - 09/21/16 11:00 am
[2016-09-19] MEDS ORDERED: Furosemide 80 MG in 0.9 % Sodium Chloride 50 ML IVPB ONE (08:13)
[2016-09-19] MEDS: Sodium Bicarbonate 150 MEQ in D5% in Water 1,000 ML IVC SCH (10:13)
--- NOTE | 2016-09-19 11:22 | Internal Med Progress Note ---
Date of Encounter: 09/19/16 Time of Encounter: 09:00 - Assessment and plan (1) DOC (acute kidney injury) Current Visit: No Status: Acute Assessment and plan: Slightly improved Cr level. Also improvement on acidosis. Had US renal which shows no obstruction. Will continue IVF, hold metformin and NSAID. F/U renal function. Nephrology consult recommendation is highly appreciated and will be followed. Hold gabapentin b/o poor renal function. (2) Ureterolithiasis Current Visit: Yes Status: Acute Assessment and plan: Had urology procedure done. Continue pain management. (3) Hydronephrosis Current Visit: Yes Status: Acute Assessment and plan: Patient has hydronephrosis, which is caused by ureteral stone. Urology on case and did the stenting. Resolved after stent. Qualifiers: Hydronephrosis type: with ureteral calculous obstruction Qualified Code(s) : N13.2 - Hydronephrosis with renal and ureteral calculous obstruction (4) CAD (coronary artery disease) Current Visit: Yes Status: Acute Assessment and plan: Stable. Continue home medication. Qualifiers: Coronary Disease-Associated Artery/Lesion type: [place] artery [place] vs. transplanted heart: [place] heart Associated angina: without angina Qualified Code(s): I25.10 - Atherosclerotic heart disease of [place] coronary artery without angina pectoris (5) Breast cancer in female Current Visit: No Status: Acute Assessment and plan: Patient was diagnosed breast cancer. She had a surgery in December 2015. She has been following oncology in [place] Qualifiers: Breast location: unspecified site of breast Laterality: right Qualified Code(s): C50.911 - Malignant neoplasm of unspecified site of right female breast (6) Diabetes Current Visit: No Status: Acute Assessment and plan: We will cover patient with a sliding scale. Glucose level is still high, adjusted the insulin dose to medium correction dose HS, High correction dose AC. Change basal insulin levemir 15 units BID. Patient was not on insulin use before, go over her lab previously her sugar level is not well controlled. She will possibly need a long-term insulin upon discharge. Qualifiers: Diabetes mellitus type: type 2 Diabetes mellitus complication status: without complication Diabetes mellitus termite exterminator helper insulin use: without termite exterminator helper use Qualified Code(s): E11.9 - Type 2 diabetes mellitus without complications (7) DVT (deep venous thrombosis) Current Visit: No Status: Chronic Assessment and plan: Patient was reported DVT. She has history of DVT and was on Eliquis. Keep patient on heparin drip for now. Oncology consult appreciated. Will switch back to eliquis later. Patient is at high risk because she is on heparin drip, which needed close monitoring. Qualifiers: DVT location: lower extremity Affected thrombotic vein of extremity: femoral Laterality: bilateral Chronicity: unspecified Qualified Code(s): I82.413 - Acute embolism and thrombosis of femoral vein, bilateral (8) Urinary tract infection Current Visit: No Status: Resolved Assessment and plan: Urine culture shows Salmonella. On rocephin per sensitivity. Qualifiers: Urinary tract infection type: acute cystitis Qualified Code(s): N30.00 - Acute cystitis without hematuria (9) DVT prophylaxis Current Visit: Yes Status: Acute Assessment and plan: Patient is on heparin drip for now. (10) Bacteremia Current Visit: Yes Status: Acute Assessment and plan: Blood culture positive for Salmonella. On rocephin per sensitivity. Repeat blood culture negative. Patient has a port on the left chest, no skin erythema , edema, or tenderness, blood culture from the catheter negative, less likely catheter infection, will keep the catheter. (11) Altered mental status Current Visit: Yes Status: Acute Assessment and plan: Patient is more confused. Her calcium level is not high. Consider her mental status changes is due to multifactoral, will continue closely monitoring. Hold gabapentin b/o poor renal function. Qualifiers: Altered mental status type: transient alteration of awareness Qualified Code(s): R40.4 - Transient alteration of awareness - Subjective Interval history: Patient is a 61-year-old female admitted for left flank pain. She was found left ureteral stone. Her past medical history is significant for asthma, breast cancer, CHF, COPD, CAD, diabetes, fibromyalgia, hyperlipidemia, hypertension, osteoporosis, thyroid disease. Patient was seen and examined. She is slightly confused, oriented to time and person but not place. She has No nausea or vomiting. No abd pain. No fever, vitals stable. renal function start to improve, nephrology consult on case and input is highly appreciated. Patient has good urine output, not plan for hemodialysis at this point. Will hold gabapentin b/o poor renal function. Blood culture and urine culture shows Salmonella, Sensitive to Rocephin, Continue rocephin IV. - Constitutional Vitals: Temp Pulse Resp BP Pulse Ox 98.0 F 83 18 133/75 97 09/19/16 10:05 09/19/16 10:05 09/19/16 10:05 09/19/16 10:05 09/19/16 10:05 General appearance: Present: A&O X 2, no acute distress - Head Head exam: Present: atraumatic, normocephalic - Eye Eye exam: Present: PERRL, conjuntiva pink, sclera anicteric Pupils: Present: PERRL - Neck Neck exam general surgery: Present: supple, trachea midline. Absent: lymphadenopathy - Respiratory Respiratory exam: Present: CTAB. Absent: accessory muscle use, rales, rhonchi, wheezes - Cardiovascular Cardiovascular exam: Present: RRR, +S1, +S2. Absent: diastolic murmur, gallop, rubs, systolic murmur - GI/Abdominal GI/Abdominal exam: Present: normal bowel sounds, soft, no peritoneal signs. Absent: distended, tenderness - Extremities Exam Extremities exam: Present: warm, radial pulses palpable and symetrical. Absent : calf tenderness, cyanotic, pedal edema - Neurological Exam Neurological exam: Present: CN II-XII intact, oriented X3, no focal deficits. Absent: pronater drift, facial droop, speech deficit - Skin Skin exam: Present: dry, intact Internal Medicine: Result - Labs CBC & Chem 7: 09/19/16 03:30 09/19/16 03:30 Labs: Short CBC 09/19/16 Range/Units 03:30 WBC 7.8 (4.3-11.1) K/mcL Hgb 8.3 L (11.5-15.4) g/dL Hct 24.4 L (35.3-44.9) % Plt Count 121 L (140-400) K/mcL Neutrophils # 5.0 (1.6-8.9) K/mcL BMP 09/19/16 03:30 Sodium 130 L Potassium 4.2 Chloride 96 L Carbon Dioxide 18 L BUN 56 H Creatinine 8.21 H Glucose 157 H Calcium 8.0 L - ABG Interpretation ABG results: ABG ABG pH 7.35 pH Units (7.32-7.45) 09/18/16 01:00 ABG pCO2 28 mmHg (35-45) L 09/18/16 01:00 ABG pO2 86 mmHg (85-104) 09/18/16 01:00 ABG O2 Saturation 96 % (95-98) 09/18/16 01:00 PT/INR, D-dimer PT 12.1 Seconds (9.4-12.1) 09/11/16 22:01 D-Dimer 1094 ng/mLFEU (0-500) H 09/11/16 22:01 - Impressions Impressions Pulmonary Perfusion Imaging 09/18/16 12:30 IMPRESSION: Low Probability for Pulmonary Embolus. D/ / Danielito Davis MD / Danielito Davis MD Interpreting Provider: Danielito Davis MD Chest X-Ray 09/19/16 10:12 IMPRESSION: 1. Low lung volumes with cardiomegaly and vascular congestion. D/ / Renny Hedrick MD / Renny Hedrick MD Interpreting Provider: Renny Hedrick MD Consult Discharge Plan - Plan Referrals: Sidra Cesar MD [Non-Partnered Physician] - 09/21/16 11:00 am
[2016-09-19] MEDS: Albuterol 2.5 MG/3 ML NEBULIZER IH PRN (16:59)
[2016-09-19] MEDS: Acetaminophen 325 MG TABLET PO PRN (21:07)
[2016-09-20 04:32] LABS: Basophils % 0.4 %; Eosinophils # 0.1 K/mcL (0.0-0.6); Hematocrit 24.3 % (35.3-44.9); Hemoglobin 8.4 g/dL (11.5-15.4); Immature Granulocytes % 15.4 % (0-4); Lymphocytes # 1.4 K/mcL (0.6-4.6); Lymphocytes % 13.2 %; Mean Corpuscular HGB Conc 34.6 g/dL (31.6-35.5); Mean Corpuscular Volume 98.4 fL (83.0-100.0); Mean Platelet Volume 9.8 fL (9.4-12.4); Monocytes # 0.8 K/mcL (0.0-1.3); Monocytes % 7.4 %; Neutrophils # 6.4 K/mcL (1.6-8.9); Nucleated Red Blood Cells 0.2 /100 WBC (0); Platelet Count 159 K/mcL (140-400); Red Blood Count 2.47 M/mcL (3.82-4.97); Red Cell Distribution Width 15.9 % (11.5-14.5); Segmented Neutrophils % 62.6 %
[2016-09-20 04:51] LABS: Albumin/Globulin Ratio 0.5 (1.1-2.2); Bilirubin,Total 0.6 mg/dL (0.2-1.2); Calcium 8.4 mg/dL (8.6-10.8); Globulin 4.1 g/dL (2.4-3.5)
[2016-09-20 04:52] LABS: Albumin 1.9 g/dL (3.5-5.0)
[2016-09-20 05:00] LABS: Platelet Estimate Normal (Normal)
[2016-09-20] MEDS: Heparin 25,000 UNIT/500 ML D5W 25,000 UNIT/500 ML MLS IVC SCH ×2 (08:27→23:48)
[2016-09-20] MEDS: Sodium Bicarbonate 150 MEQ in D5% in Water 1,000 ML IVC SCH (08:32)
[2016-09-20] MEDS: Insulin DETEMIR 100 UNIT/ML X5UNITS SQ SCH ×2 (08:33→20:16)
[2016-09-20] MEDS: Cholestyramine 4 GM POWD.PACK PO SCH ×2 (08:33→20:15)
[2016-09-20] MEDS: Magnesium Oxide 400 MG TABLET PO SCH (08:33)
[2016-09-20] MEDS: BuPROPion XL (24 HR) 150 MG TABLET PO SCH (08:34)
[2016-09-20] MEDS: Insulin LISPRO 300 UNITS/3 ML VIAL SQ SCH ×4 (08:34→20:15)
--- NOTE | 2016-09-20 09:47 | Nephrology Progress Note ---
Date of Encounter: 09/20/16 Time of Encounter: 09:25 - Assessment and Plan (1) DOC (acute kidney injury) Current Visit: No Status: Acute DOC, multifactorial etiology. Factors include contrast-induced nephropathy urinary tract infection ureteral stone with hydronephrosis and outpatient consumption of etodolac. Renal fct seems to have plateaued and slowly improving. Excellent urine output. Improving mentation. Will continue to monitor. Subjective Interval history: Arouses easily. Sister at bedside. Remains somnolent but sister states her recall and appropriate conversation improving. O2 2L/nc, O2 sat 93% Objective - Vital Signs Vital signs: Vital Signs Temp Pulse Resp BP Pulse Ox 09/20/16 08:16 98.5 F 100 14 116/67 97 09/20/16 03:58 98.3 F 83 14 143/83 96 09/19/16 23:33 98.2 F 82 14 143/83 93 L 09/19/16 18:54 98.5 F 85 14 138/89 97 09/19/16 16:59 20 97 09/19/16 14:27 98.3 F 83 18 130/85 97 09/19/16 10:05 98.0 F 83 18 133/75 97 Intake and Output 09/19/16 09/20/16 09/20/16 23:59 07:59 15:59 Intake Total 500 / 500 400 / 400 1350 / 1350 Output Total 2100 / 2100 975 / 975 1200 / 1200 Balance -1600 / -1600 -575 / -575 150 / 150 Intake: IV Fluids 500 / 500 400 / 400 1350 / 1350 Heparin 25,000 UNIT/500 500 / 500 400 / 400 100 / 100 ML D5W 25,000 unit In 500 ml @ 14 UNIT/KG/HR 33. 022 mls/hr IVC .Q15H9M DOC Rx#:[id number] Sodium Bicarbonate 150 1150 / 1150 MEQ In Dextrose 5% 1,000 ML @ 50 mls/hr IVC .Q23H DOC Rx#:[id number] Rocephin 1,000 MG In 100 / 100 Dextrose 5% (Minibag+) 100 ML 100 ML @ 200 mls/ hr IVPB DAILY DOC Rx#: [id number] Output: Catheter 2099 / 2100 975 / 975 1200 / 1200 Other: Weight 120.9 kg Blood Glucose* 189 191 Patient Weight 09/20/16 23:59 Weight 120.9 kg - General Appearance General appearance: Present: well-developed, well-nourished, appears started age , obese EENT: Present: mucous membranes moist Neck: Present: no JVD Respiratory: Present: clear Cardiology: Present: regular rate, regular rhythm Additional Comments: generalized edema, pitting LE, dependent thigh/buttock Gastrointestinal: Present: normoactive bowel sounds, no tenderness Integumentary: Present: warm and dry Psychiatric: Present: mood/affect appropriate, cooperative - Lab 09/20/16 04:00 09/20/16 04:00 Most recent lab results ABG pH 7.35 pH Units (7.32-7.45) 09/18/16 01:00 ABG pCO2 28 mmHg (35-45) L 09/18/16 01:00 ABG pO2 86 mmHg (85-104) 09/18/16 01:00 ABG HCO3 15.5 mEQ/L (21-27) L 09/18/16 01:00 ABG O2 Saturation 96 % (95-98) 09/18/16 01:00 Calcium 8.4 mg/dL (8.6-10.8) L 09/20/16 04:00 Consult Discharge Plan - Plan Referrals: Sidra Cesar MD [Non-Partnered Physician] - 09/28/16 11:00 am
--- NOTE | 2016-09-20 11:45 | Internal Med Progress Note ---
Date of Encounter: 09/20/16 Time of Encounter: 09:00 - Assessment and plan (1) DOC (acute kidney injury) Current Visit: No Status: Acute Assessment and plan: Slightly improved Cr level. Also improvement on acidosis. Had US renal which shows no obstruction. Will continue IVF, hold metformin and NSAID. F/U renal function. Nephrology consult recommendation is highly appreciated and will be followed. Good urine output. (2) Ureterolithiasis Current Visit: Yes Status: Acute Assessment and plan: Had urology procedure done. Continue pain management. (3) Hydronephrosis Current Visit: Yes Status: Acute Assessment and plan: Patient has hydronephrosis, which is caused by ureteral stone. Urology on case and did the stenting. Resolved after stent. Qualifiers: Hydronephrosis type: with ureteral calculous obstruction Qualified Code(s) : N13.2 - Hydronephrosis with renal and ureteral calculous obstruction (4) CAD (coronary artery disease) Current Visit: Yes Status: Acute Assessment and plan: Stable. Continue home medication. Qualifiers: Coronary Disease-Associated Artery/Lesion type: [place] artery [place] vs. transplanted heart: [place] heart Associated angina: without angina Qualified Code(s): I25.10 - Atherosclerotic heart disease of [place] coronary artery without angina pectoris (5) Breast cancer in female Current Visit: No Status: Acute Assessment and plan: Patient was diagnosed breast cancer. She had a surgery in December 2015. She has been following oncology in [place] Qualifiers: Breast location: unspecified site of breast Laterality: right Qualified Code(s): C50.911 - Malignant neoplasm of unspecified site of right female breast (6) Diabetes Current Visit: No Status: Acute Assessment and plan: We will cover patient with a sliding scale. Glucose level is still high, adjusted the insulin dose to medium correction dose HS, High correction dose AC. Change basal insulin levemir 15 units BID. Patient was not on insulin use before, go over her lab previously her sugar level is not well controlled. She will possibly need a long-term insulin upon discharge. Qualifiers: Diabetes mellitus type: type 2 Diabetes mellitus complication status: without complication Diabetes mellitus long chain beamer insulin use: without long chain beamer use Qualified Code(s): E11.9 - Type 2 diabetes mellitus without complications (7) DVT (deep venous thrombosis) Current Visit: No Status: Chronic Assessment and plan: Patient was reported DVT. She has history of DVT and was on Eliquis. Keep patient on heparin drip for now. Oncology consult appreciated. Will switch back to eliquis later. Patient is at high risk because she is on heparin drip, which needed close monitoring. Qualifiers: DVT location: lower extremity Affected thrombotic vein of extremity: femoral Laterality: bilateral Chronicity: unspecified Qualified Code(s): I82.413 - Acute embolism and thrombosis of femoral vein, bilateral (8) Urinary tract infection Current Visit: No Status: Resolved Assessment and plan: Urine culture shows Salmonella. On rocephin per sensitivity. Qualifiers: Urinary tract infection type: acute cystitis Qualified Code(s): N30.00 - Acute cystitis without hematuria (9) DVT prophylaxis Current Visit: Yes Status: Acute Assessment and plan: Patient is on heparin drip for now. (10) Bacteremia Current Visit: Yes Status: Acute Assessment and plan: Blood culture positive for Salmonella. On rocephin per sensitivity. Repeat blood culture negative. Patient has a port on the left chest, no skin erythema , edema, or tenderness, blood culture from the catheter negative, less likely catheter infection, will keep the catheter. Pt does not meet criteria for sepsis. (11) Altered mental status Current Visit: Yes Status: Acute Assessment and plan: Patient is more confused. Her calcium level is not high. Consider her mental status changes is due to multifactoral, will continue closely monitoring. Hold gabapentin b/o poor renal function. Pt may need a brain MRI to r/o breast cancer brain metastesis, however, she is sick now and question if she can tolerate the test (keep still for 30 minutes). Qualifiers: Altered mental status type: transient alteration of awareness Qualified Code(s): R40.4 - Transient alteration of awareness (12) Encephalopathy acute Current Visit: Yes Status: Acute Assessment and plan: Patient has acute altered mental status, consider encephalopathy caused by metabolic disorders, but also need to rule out other etiologies like breast cancer and brain metastasis. We will continue monitor renal function and correct acidosis - Time Spent With Patient Greater than 35 minutes - Subjective Interval history: Patient is a 61-year-old female admitted for left flank pain. She was found left ureteral stone. Her past medical history is significant for asthma, breast cancer, CHF, COPD, CAD, diabetes, fibromyalgia, hyperlipidemia, hypertension, osteoporosis, thyroid disease. Patient was seen and examined. She is slightly confused, oriented to time and person but not place. She has No nausea or vomiting. No abd pain. Low fever yesterday but not today, vitals stable. renal function start to improve, nephrology consult on case and input is highly appreciated. Patient has good urine output, not plan for hemodialysis at this point. Will hold gabapentin b/o poor renal function. Blood culture and urine culture shows Salmonella, Sensitive to Rocephin, Continue rocephin IV. - Constitutional Vitals: Temp Pulse Resp BP Pulse Ox 98.5 F 100 14 116/67 97 09/20/16 08:16 09/20/16 08:16 09/20/16 08:16 09/20/16 08:16 09/20/16 10:34 General appearance: Present: A&O X 2, no acute distress - Head Head exam: Present: atraumatic, normocephalic - Eye Eye exam: Present: PERRL, conjuntiva pink, sclera anicteric Pupils: Present: PERRL - Neck Neck exam general surgery: Present: supple, trachea midline. Absent: lymphadenopathy - Respiratory Respiratory exam: Present: CTAB. Absent: accessory muscle use, rales, rhonchi, wheezes - Cardiovascular Cardiovascular exam: Present: RRR, +S1, +S2. Absent: diastolic murmur, gallop, rubs, systolic murmur - GI/Abdominal GI/Abdominal exam: Present: normal bowel sounds, soft, no peritoneal signs. Absent: distended, tenderness - Extremities Exam Extremities exam: Present: warm, radial pulses palpable and symetrical. Absent : calf tenderness, cyanotic, pedal edema - Neurological Exam Neurological exam: Present: CN II-XII intact, oriented X3, no focal deficits. Absent: pronater drift, facial droop, speech deficit - Skin Skin exam: Present: dry, intact Internal Medicine: Result - Labs CBC & Chem 7: 09/20/16 04:00 09/20/16 04:00 Labs: Short CBC 09/20/16 Range/Units 04:00 WBC 10.2 (4.3-11.1) K/mcL Hgb 8.4 L (11.5-15.4) g/dL Hct 24.3 L (35.3-44.9) % Plt Count 159 (140-400) K/mcL Neutrophils # 6.4 (1.6-8.9) K/mcL BMP 09/20/16 04:00 Sodium 132 L Potassium 4.0 Chloride 96 L Carbon Dioxide 21 BUN 54 H Creatinine 7.67 H Glucose 153 H Calcium 8.4 L Liver Function 09/20/16 Range/Units 04:00 Total Bilirubin 0.6 (0.2-1.2) mg/dL AST 31 (5-34) Units/L ALT 23 (0-55) Units/L Alkaline Phosphatase 177 H (38-126) Units/L Albumin 1.9 L (3.5-5.0) g/dL - ABG Interpretation ABG results: ABG ABG pH 7.35 pH Units (7.32-7.45) 09/18/16 01:00 ABG pCO2 28 mmHg (35-45) L 09/18/16 01:00 ABG pO2 86 mmHg (85-104) 09/18/16 01:00 ABG O2 Saturation 96 % (95-98) 09/18/16 01:00 PT/INR, D-dimer PT 12.1 Seconds (9.4-12.1) 09/11/16 22:01 D-Dimer 1094 ng/mLFEU (0-500) H 09/11/16 22:01 Consult Discharge Plan - Plan Referrals: Sidra Cesar MD [Non-Partnered Physician] - 09/28/16 11:00 am
[2016-09-20] MEDS: *HR* OxyCODONE/APAP 5/325 TABLET PO PRN (20:15)
[2016-09-21] MEDS: *HR* OxyCODONE/APAP 5/325 TABLET PO PRN (01:16)
[2016-09-21 04:34] LABS: Hematocrit 22.6 % (35.3-44.9); Hemoglobin 7.6 g/dL (11.5-15.4); Mean Corpuscular HGB Conc 33.6 g/dL (31.6-35.5); Mean Corpuscular Hemoglobin 32.6 pg (28.0-33.3); Mean Platelet Volume 9.1 fL (9.4-12.4); Nucleated Red Blood Cells 0.2 /100 WBC (0); Platelet Count 163 K/mcL (140-400); Red Blood Count 2.33 M/mcL (3.82-4.97); Red Cell Distribution Width 15.9 % (11.5-14.5)
[2016-09-21 04:43] LABS: Calcium 7.4 mg/dL (8.6-10.8); Potassium 3.7 mEq/L (3.5-4.5)
[2016-09-21 06:59] LABS: Lymphocytes # 1.3 K/mcL (0.6-4.6); Monocytes # 1.5 K/mcL (0.0-1.3); Platelet Estimate Normal (Normal)
--- NOTE | 2016-09-21 08:03 | Nephrology Progress Note ---
Date of Encounter: 09/21/16 Time of Encounter: 08:00 - Assessment and Plan (1) DOC (acute kidney injury) Current Visit: No Status: Acute The patient has acute kidney injury which appears to be multifactorial in etiology. Factors include contrast-induced nephropathy urinary tract infection ureteral stone with hydronephrosis and outpatient consumption of etodolac. The patient has a well-established trend of improvement in her renal function. Urine output is excellent. Metabolic acidosis has improved. Going to discontinue the bicarbonate IV. The patient does not require dialysis. We will continue to monitor her renal function. (2) Hydronephrosis with renal and ureteral calculous obstruction Current Visit: Yes Status: Acute (3) UTI (urinary tract infection) Current Visit: Yes Status: Acute Qualifiers: Urinary tract infection type: site unspecified Hematuria presence: without hematuria Qualified Code(s): N39.0 - Urinary tract infection, site not specified Subjective Interval history: The patient says she feels tired. Otherwise she has no complaints. She now has a well-established trend of improvement in her renal function. Urine output is excellent. Metabolic acidosis has improved. Objective - Vital Signs Vital signs: Vital Signs Temp Pulse Resp BP Pulse Ox 09/21/16 03:40 98.1 F 88 14 97/64 93 L 09/20/16 23:33 19 94 L 09/20/16 22:58 99.4 F 93 14 127/75 100 09/20/16 19:19 99.1 F 95 14 134/82 94 L 09/20/16 15:46 99.7 F H 99 18 124/73 93 L 09/20/16 15:15 95 09/20/16 11:34 99.7 F H 98 17 129/79 92 L 09/20/16 10:34 97 09/20/16 08:16 98.5 F 100 14 116/67 97 Intake and Output 09/20/16 09/21/16 09/21/16 23:59 07:59 15:59 Intake Total 995 / 995 241 / 241 Output Total 1050 / 1050 925 / 925 Balance -55 / -55 -684 / -684 Intake: IV Fluids 745 / 745 241 / 241 Heparin 25,000 UNIT/500 500 / 500 241 / 241 ML D5W 25,000 unit In 500 ml @ 14 UNIT/KG/HR 33. 022 mls/hr IVC .Q15H9M DOC Rx#:[id number] Sodium Bicarbonate 150 245 / 245 MEQ In Dextrose 5% 1,000 ML @ 50 mls/hr IVC .Q23H DOC Rx#:[id number] Oral 250 / 250 Output: Urine 500 / 500 425 / 425 Catheter 550 / 550 500 / 500 Other: Meal Dinner Percent of Meal Consumed 100% Weight 120.9 kg Blood Glucose* 205 151 Patient Weight 09/21/16 23:59 Weight 120.9 kg - General Appearance Exam: Patient is alert and oriented. She is in no acute distress. Lungs diminished breath sounds otherwise clear. Heart regular rate and rhythm. There is no friction rub. Abdomen is benign. She continues to have lower extremity swelling. - Lab 09/21/16 04:15 09/21/16 04:15 Most recent lab results ABG pH 7.35 pH Units (7.32-7.45) 09/18/16 01:00 ABG pCO2 28 mmHg (35-45) L 09/18/16 01:00 ABG pO2 86 mmHg (85-104) 09/18/16 01:00 ABG HCO3 15.5 mEQ/L (21-27) L 09/18/16 01:00 ABG O2 Saturation 96 % (95-98) 09/18/16 01:00 Calcium 7.4 mg/dL (8.6-10.8) L 09/21/16 04:15 Consult Discharge Plan - Plan Referrals: Sidra Cesar MD [Non-Partnered Physician] - 09/28/16 11:00 am
[2016-09-21] MEDS: Insulin LISPRO 300 UNITS/3 ML VIAL SQ SCH ×4 (08:10→20:39)
[2016-09-21] MEDS: Insulin DETEMIR 100 UNIT/ML X5UNITS SQ SCH ×2 (08:12→20:49)
[2016-09-21] MEDS: Magnesium Oxide 400 MG TABLET PO SCH (08:12)
[2016-09-21] MEDS: Cholestyramine 4 GM POWD.PACK PO SCH ×2 (08:12→20:50)
[2016-09-21] MEDS: BuPROPion XL (24 HR) 150 MG TABLET PO SCH (08:13)
[2016-09-21] MEDS ORDERED: 0.9 % Sodium Chloride 250 ML ONE (11:48)
--- NOTE | 2016-09-21 13:14 | Internal Med Progress Note ---
Date of Encounter: 09/21/16 Time of Encounter: 09:00 - Assessment and plan (1) DOC (acute kidney injury) Current Visit: No Status: Acute Assessment and plan: Slightly improved Cr level. Also improvement on acidosis. Had US renal which shows no obstruction. Will hold metformin and NSAID. F/U renal function. Nephrology consult recommendation is highly appreciated and will be followed. Good urine output. (2) Ureterolithiasis Current Visit: Yes Status: Acute Assessment and plan: Had urology procedure done. Continue pain management. (3) Hydronephrosis Current Visit: Yes Status: Acute Assessment and plan: Patient has hydronephrosis, which is caused by ureteral stone. Urology on case and did the stenting. Resolved after stent. Qualifiers: Hydronephrosis type: with ureteral calculous obstruction Qualified Code(s) : N13.2 - Hydronephrosis with renal and ureteral calculous obstruction (4) CAD (coronary artery disease) Current Visit: Yes Status: Acute Assessment and plan: Stable. Continue home medication. Qualifiers: Coronary Disease-Associated Artery/Lesion type: [place] artery [place] vs. transplanted heart: [place] heart Associated angina: without angina Qualified Code(s): I25.10 - Atherosclerotic heart disease of [place] coronary artery without angina pectoris (5) Breast cancer in female Current Visit: No Status: Acute Assessment and plan: Patient was diagnosed breast cancer. She had a surgery in December 2015. She has been following oncology in [place] Qualifiers: Breast location: unspecified site of breast Laterality: right Qualified Code(s): C50.911 - Malignant neoplasm of unspecified site of right female breast (6) Diabetes Current Visit: No Status: Acute Assessment and plan: We will cover patient with a sliding scale. Glucose level is still high, adjusted the insulin dose to medium correction dose HS, High correction dose AC. Change basal insulin levemir 15 units BID. Patient was not on insulin use before, go over her lab previously her sugar level is not well controlled. She will possibly need a long-term insulin upon discharge. Qualifiers: Diabetes mellitus type: type 2 Diabetes mellitus complication status: without complication Diabetes mellitus longterm insulin use: without longterm use Qualified Code(s): E11.9 - Type 2 diabetes mellitus without complications (7) DVT (deep venous thrombosis) Current Visit: No Status: Chronic Assessment and plan: Patient was reported DVT. She has history of DVT and was on Eliquis. Keep patient on heparin drip for now. Oncology consult appreciated. Will switch back to eliquis later when her kidney function is getting better. Patient is at high risk because she is on heparin drip, which needed close monitoring. Qualifiers: DVT location: lower extremity Affected thrombotic vein of extremity: femoral Laterality: bilateral Chronicity: unspecified Qualified Code(s): I82.413 - Acute embolism and thrombosis of femoral vein, bilateral (8) Urinary tract infection Current Visit: No Status: Resolved Assessment and plan: Urine culture shows Salmonella. On rocephin per sensitivity. Qualifiers: Urinary tract infection type: acute cystitis Qualified Code(s): N30.00 - Acute cystitis without hematuria (9) DVT prophylaxis Current Visit: Yes Status: Acute Assessment and plan: Patient is on heparin drip for now. (10) Bacteremia Current Visit: Yes Status: Acute Assessment and plan: Blood culture positive for Salmonella. On rocephin per sensitivity. Repeat blood culture negative. Patient has a port on the left chest, no skin erythema , edema, or tenderness, blood culture from the catheter negative, less likely catheter infection, will keep the catheter. Pt does not meet criteria for sepsis. (11) Altered mental status Current Visit: Yes Status: Acute Assessment and plan: Patient is more confused. Her calcium level is not high. Consider her mental status changes is due to multifactoral, will continue closely monitoring. Hold gabapentin b/o poor renal function. Pt may need a brain MRI to r/o breast cancer brain metastesis, however, she is sick now and question if she can tolerate the test (keep still for 30 minutes). Qualifiers: Altered mental status type: transient alteration of awareness Qualified Code(s): R40.4 - Transient alteration of awareness (12) Encephalopathy acute Current Visit: Yes Status: Acute Assessment and plan: Patient has acute altered mental status, consider encephalopathy caused by metabolic disorders, but also need to rule out other etiologies like breast cancer and brain metastasis. We will continue monitor renal function (13) Anemia due to acute blood loss Current Visit: Yes Status: Acute Assessment and plan: Patient is on heparin drip and had a urology procedure, always has trace hematuria, hemoglobin gradually get that down, today is 7.4. We will give 1 unit of blood. - Time Spent With Patient Greater than 35 minutes - Subjective Interval history: Patient is a 61-year-old female admitted for left flank pain. She was found left ureteral stone. Her past medical history is significant for asthma, breast cancer, CHF, COPD, CAD, diabetes, fibromyalgia, hyperlipidemia, hypertension, osteoporosis, thyroid disease. Patient was seen and examined. She is generalized weak. She has No nausea or vomiting. No abd pain. Vitals stable. renal function start to improve. Patient has good urine output. We will continue to monitor renal function. Patient is on heparin drip. Mild anemia today, possibly due to slow blood loss from hematuria after procedure. We will give her 1 unit of blood today. Patient has increased WBC, will continue Rocephin IV. - Constitutional Vitals: Temp Pulse Resp BP Pulse Ox 98.6 F 86 16 123/79 99 09/21/16 13:00 09/21/16 13:00 09/21/16 13:00 09/21/16 13:00 09/21/16 13:00 General appearance: Present: A&O X 2, morbidly obese, no acute distress - Head Head exam: Present: atraumatic, normocephalic - Eye Eye exam: Present: PERRL, conjuntiva pink, sclera anicteric Pupils: Present: PERRL - Neck Neck exam general surgery: Present: supple, trachea midline. Absent: lymphadenopathy - Respiratory Respiratory exam: Present: CTAB. Absent: accessory muscle use, rales, rhonchi, wheezes - Cardiovascular Cardiovascular exam: Present: RRR, +S1, +S2. Absent: diastolic murmur, gallop, rubs, systolic murmur - GI/Abdominal GI/Abdominal exam: Present: normal bowel sounds, soft, no peritoneal signs. Absent: distended, tenderness - Extremities Exam Extremities exam: Present: warm, radial pulses palpable and symetrical. Absent : calf tenderness, cyanotic, pedal edema - Neurological Exam Neurological exam: Present: CN II-XII intact, oriented X3, no focal deficits. Absent: pronater drift, facial droop, speech deficit - Skin Skin exam: Present: dry, intact Internal Medicine: Result - Labs CBC & Chem 7: 09/21/16 04:15 09/21/16 04:15 Labs: Short CBC 09/21/16 Range/Units 04:15 WBC 12.8 H (4.3-11.1) K/mcL Hgb 7.6 L (11.5-15.4) g/dL Hct 22.6 L (35.3-44.9) % Plt Count 163 (140-400) K/mcL Neutrophils # 10.0 H (1.6-8.9) K/mcL BMP 09/21/16 04:15 Sodium 135 L Potassium 3.7 Chloride 95 L Carbon Dioxide 25 BUN 48 H Creatinine 6.50 H Glucose 150 H Calcium 7.4 L - ABG Interpretation ABG results: ABG ABG pH 7.35 pH Units (7.32-7.45) 09/18/16 01:00 ABG pCO2 28 mmHg (35-45) L 09/18/16 01:00 ABG pO2 86 mmHg (85-104) 09/18/16 01:00 ABG O2 Saturation 96 % (95-98) 09/18/16 01:00 PT/INR, D-dimer PT 12.1 Seconds (9.4-12.1) 09/11/16 22:01 D-Dimer 1094 ng/mLFEU (0-500) H 09/11/16 22:01 Consult Discharge Plan - Plan Referrals: Sidra Cesar MD [Non-Partnered Physician] - 09/28/16 11:00 am
[2016-09-21] MEDS: Heparin 25,000 UNIT/500 ML D5W 25,000 UNIT/500 ML MLS IVC SCH (13:23)
[2016-09-21] MEDS: Albuterol 2.5 MG/3 ML NEBULIZER IH PRN (14:45)
[2016-09-21] MEDS: Acetaminophen 325 MG TABLET PO PRN (20:50)
[2016-09-22 03:21] LABS: Basophils # 0.1 K/mcL (0.0-0.2); Basophils % 0.5 %; Eosinophils # 0.1 K/mcL (0.0-0.6); Eosinophils % 1.2 %; Hematocrit 25.6 % (35.3-44.9); Hemoglobin 8.7 g/dL (11.5-15.4); Immature Granulocytes % 6.9 % (0-4); Lymphocytes # 1.5 K/mcL (0.6-4.6); Lymphocytes % 13.3 %; Mean Corpuscular Hemoglobin 33.3 pg (28.0-33.3); Mean Corpuscular Volume 98.1 fL (83.0-100.0); Mean Platelet Volume 8.9 fL (9.4-12.4); Neutrophils # 7.5 K/mcL (1.6-8.9); Platelet Count 163 K/mcL (140-400); Red Blood Count 2.61 M/mcL (3.82-4.97); Segmented Neutrophils % 69.1 %
[2016-09-22 03:32] LABS: Albumin/Globulin Ratio 0.4 (1.1-2.2); Bilirubin,Total 0.3 mg/dL (0.2-1.2); Calcium 7.5 mg/dL (8.6-10.8); Globulin 4.1 g/dL (2.4-3.5); Magnesium 0.9 mg/dL (1.6-2.6); Potassium 3.5 mEq/L (3.5-4.5); Total Protein 5.9 g/dL (6.0-8.3)
[2016-09-22 03:33] LABS: Albumin 1.8 g/dL (3.5-5.0)
[2016-09-22 03:54] LABS: Hypochromasia Present (Not Present); Platelet Estimate Normal (Normal); Polychromasia 1+ (Not Present)
[2016-09-22] MEDS: Heparin 25,000 UNIT/500 ML D5W 25,000 UNIT/500 ML MLS IVC SCH ×2 (03:57→17:38)
[2016-09-22] MEDS: Sodium Bicarbonate 150 MEQ in D5% in Water 1,000 ML IVC SCH (07:31)
[2016-09-22] MEDS: Cholestyramine 4 GM POWD.PACK PO SCH ×2 (07:40→20:24)
[2016-09-22] MEDS: BuPROPion XL (24 HR) 150 MG TABLET PO SCH (07:40)
[2016-09-22] MEDS: Magnesium Oxide 400 MG TABLET PO SCH (07:40)
[2016-09-22] MEDS: Insulin LISPRO 300 UNITS/3 ML VIAL SQ SCH ×4 (07:41→21:30)
[2016-09-22] MEDS: Insulin DETEMIR 100 UNIT/ML X5UNITS SQ SCH ×2 (08:46→21:33)
--- NOTE | 2016-09-22 09:40 | Nephrology Progress Note ---
Date of Encounter: 09/22/16 Time of Encounter: 09:25 - Assessment and Plan (1) DOC (acute kidney injury) Current Visit: No Status: Acute DOC, multifactorial etiology. Factors include contrast-induced nephropathy urinary tract infection ureteral stone with hydronephrosis and outpatient consumption of etodolac. Renal fct improving, excellent urine output. Will continue to monitor. Subjective Interval history: Alert and oriented x 3. Sister at bedside.States feeling better. No new complaints. Objective - Vital Signs Vital signs: Vital Signs Temp Pulse Resp BP Pulse Ox 09/22/16 07:57 98.7 F 88 18 130/81 99 09/22/16 07:20 98.7 F 88 14 130/81 99 09/22/16 04:00 98.6 F 82 18 114/72 98 09/22/16 00:06 98.7 F 76 18 119/74 96 09/21/16 19:56 99.5 F 92 18 124/80 94 L 09/21/16 15:15 99.2 F 92 16 130/73 96 09/21/16 15:07 99 09/21/16 13:00 98.6 F 86 16 123/79 99 09/21/16 12:45 98.4 F 86 16 126/72 100 09/21/16 10:41 98.4 F 85 15 152/72 100 Intake and Output 09/21/16 09/22/16 09/22/16 23:59 07:59 15:59 Intake Total 245 / 245 375 / 375 120 / 120 Output Total 1650 / 1650 2150 / 2150 Balance -1405 / -1405 -1775 / -1775 120 / 120 Intake: IV Fluids 125 / 125 375 / 375 Heparin 25,000 UNIT/500 125 / 125 375 / 375 ML D5W 25,000 unit In 500 ml @ 14 UNIT/KG/HR 33. 022 mls/hr IVC .Q15H9M DOC Rx#:[id number] Oral 120 / 120 0 / 0 120 / 120 Output: Catheter 1650 / 1650 2150 / 2150 Other: Meal Dinner Breakfast Percent of Meal Consumed 0% 100% Stool Size Small Stool Consistency loose Stool Characteristics Seedy Stool Color Brown Yellow # Bowel Movements 1 Weight 121.2 kg Blood Glucose* 164 109 Patient Weight 09/22/16 23:59 Weight 121.2 kg - General Appearance General appearance: Present: well-developed, well-nourished, appears started age , obese EENT: Present: mucous membranes moist Neck: Present: no JVD Respiratory: Present: clear Cardiology: Present: regular rate, regular rhythm Additional Comments: mild-1+ pitting edema, generalized. Gastrointestinal: Present: normoactive bowel sounds, no tenderness Integumentary: Present: warm and dry Neurologic: Present: alert and oriented x3 Psychiatric: Present: mood/affect appropriate, cooperative - Lab 09/22/16 03:10 09/22/16 03:10 Most recent lab results ABG pH 7.35 pH Units (7.32-7.45) 09/18/16 01:00 ABG pCO2 28 mmHg (35-45) L 09/18/16 01:00 ABG pO2 86 mmHg (85-104) 09/18/16 01:00 ABG HCO3 15.5 mEQ/L (21-27) L 09/18/16 01:00 ABG O2 Saturation 96 % (95-98) 09/18/16 01:00 Calcium 7.5 mg/dL (8.6-10.8) L 09/22/16 03:10 Magnesium 0.9 mg/dL (1.6-2.6) L 09/22/16 03:10 Consult Discharge Plan - Plan Referrals: Sidra Cesar MD [Non-Partnered Physician] - 09/28/16 11:00 am
--- NOTE | 2016-09-22 14:29 | Internal Med Progress Note ---
Date of Encounter: 09/22/16 Time of Encounter: 09:00 - Assessment and plan (1) DOC (acute kidney injury) Current Visit: No Status: Acute Assessment and plan: Improved Cr level. Good urine output. Had US renal which shows no obstruction. Will hold metformin and NSAID. F/U renal function. Nephrology consult recommendation is highly appreciated and will be followed. (2) Ureterolithiasis Current Visit: Yes Status: Acute Assessment and plan: Had urology procedure done. Continue pain management. (3) Hydronephrosis Current Visit: Yes Status: Acute Assessment and plan: Patient has hydronephrosis, which is caused by ureteral stone. Urology on case and did the stenting. Resolved after stent. Qualifiers: Hydronephrosis type: with ureteral calculous obstruction Qualified Code(s) : N13.2 - Hydronephrosis with renal and ureteral calculous obstruction (4) CAD (coronary artery disease) Current Visit: Yes Status: Acute Assessment and plan: Stable. Continue home medication. Qualifiers: Coronary Disease-Associated Artery/Lesion type: [place] artery [place] vs. transplanted heart: [place] heart Associated angina: without angina Qualified Code(s): I25.10 - Atherosclerotic heart disease of [place] coronary artery without angina pectoris (5) Breast cancer in female Current Visit: No Status: Acute Assessment and plan: Patient was diagnosed breast cancer. She had a surgery in December 2015. She has been following oncology in [place] Qualifiers: Breast location: unspecified site of breast Laterality: right Qualified Code(s): C50.911 - Malignant neoplasm of unspecified site of right female breast (6) Diabetes Current Visit: No Status: Acute Assessment and plan: We will cover patient with a sliding scale. Glucose level is stable on insulin dose to medium correction dose HS, High correction dose AC. Change basal insulin levemir 15 units BID. Patient was not on insulin use before, go over her lab previously her sugar level is not well controlled. She will possibly need a long-term insulin upon discharge. Qualifiers: Diabetes mellitus type: type 2 Diabetes mellitus complication status: without complication Diabetes mellitus exterminator termite insulin use: without exterminator termite use Qualified Code(s): E11.9 - Type 2 diabetes mellitus without complications (7) DVT (deep venous thrombosis) Current Visit: No Status: Chronic Assessment and plan: Patient was reported DVT. She has history of DVT and was on Eliquis. Keep patient on heparin drip for now. Oncology consult appreciated. Will switch back to eliquis later when her kidney function is getting better. Patient is at high risk because she is on heparin drip, which needed close monitoring. Qualifiers: DVT location: lower extremity Affected thrombotic vein of extremity: femoral Laterality: bilateral Chronicity: unspecified Qualified Code(s): I82.413 - Acute embolism and thrombosis of femoral vein, bilateral (8) Urinary tract infection Current Visit: No Status: Resolved Assessment and plan: Urine culture shows Salmonella. On rocephin per sensitivity. Qualifiers: Urinary tract infection type: acute cystitis Qualified Code(s): N30.00 - Acute cystitis without hematuria (9) DVT prophylaxis Current Visit: Yes Status: Acute Assessment and plan: Patient is on heparin drip for now. (10) Bacteremia Current Visit: Yes Status: Acute Assessment and plan: Blood culture positive for Salmonella. On rocephin per sensitivity. Repeat blood culture negative. Patient has a port on the left chest, no skin erythema , edema, or tenderness, blood culture from the catheter negative, less likely catheter infection, will keep the catheter. Pt does not meet criteria for sepsis. (11) Altered mental status Current Visit: Yes Status: Acute Assessment and plan: Patient is more alert and oriented today as long as renal function has improved. Her calcium level is not high. Pt may still need a brain MRI to r/o breast cancer brain metastesis, however, she is sick now and question if she can tolerate the test (keep still for 30 minutes). Qualifiers: Altered mental status type: transient alteration of awareness Qualified Code(s): R40.4 - Transient alteration of awareness (12) Encephalopathy acute Current Visit: Yes Status: Acute Assessment and plan: Patient has acute altered mental status, consider encephalopathy caused by metabolic disorders, but also need to rule out other etiologies like breast cancer and brain metastasis. Mental status improved today. (13) Anemia due to acute blood loss Current Visit: Yes Status: Acute Assessment and plan: Patient is on heparin drip and had a urology procedure, always has trace hematuria, hemoglobin gradually get that down, consider anemia caused by blood loss. Hemoglobin improved after 1 unit of blood. - Time Spent With Patient Greater than 35 minutes - Subjective Interval history: Patient is a 61-year-old female admitted for left flank pain. She was found left ureteral stone. Her past medical history is significant for asthma, breast cancer, CHF, COPD, CAD, diabetes, fibromyalgia, hyperlipidemia, hypertension, osteoporosis, thyroid disease. Patient was seen and examined. She is generalized weak but more alert, awake today. Oriented x 3. She has No nausea or vomiting. No abd pain. Vitals stable. renal function keep improving with good urine output. We will continue to monitor renal function. Patient is still on heparin drip. Hgb improved after 1 unit of blood today. We will start PT OT. - Constitutional Vitals: Temp Pulse Resp BP Pulse Ox 97.7 F 91 18 118/70 95 09/22/16 14:00 09/22/16 14:00 09/22/16 14:00 09/22/16 14:00 09/22/16 14:00 General appearance: Present: A&O X 3, morbidly obese, no acute distress - Head Head exam: Present: atraumatic, normocephalic - Eye Eye exam: Present: PERRL, conjuntiva pink, sclera anicteric Pupils: Present: PERRL - Neck Neck exam general surgery: Present: supple, trachea midline. Absent: lymphadenopathy - Respiratory Respiratory exam: Present: CTAB. Absent: accessory muscle use, rales, rhonchi, wheezes - Cardiovascular Cardiovascular exam: Present: RRR, +S1, +S2. Absent: diastolic murmur, gallop, rubs, systolic murmur - GI/Abdominal GI/Abdominal exam: Present: normal bowel sounds, soft, no peritoneal signs. Absent: distended, tenderness - Extremities Exam Extremities exam: Present: calf tenderness (Bilaterally), warm, radial pulses palpable and symetrical. Absent: cyanotic, pedal edema - Neurological Exam Neurological exam: Present: CN II-XII intact, oriented X3, no focal deficits. Absent: pronater drift, facial droop, speech deficit - Skin Skin exam: Present: dry, intact Internal Medicine: Result - Labs CBC & Chem 7: 09/22/16 03:10 09/22/16 03:10 Labs: Short CBC 09/22/16 Range/Units 03:10 WBC 10.9 (4.3-11.1) K/mcL Hgb 8.7 L (11.5-15.4) g/dL Hct 25.6 L (35.3-44.9) % Plt Count 163 (140-400) K/mcL Neutrophils # 7.5 (1.6-8.9) K/mcL BMP 09/22/16 03:10 Sodium 137 Potassium 3.5 Chloride 99 Carbon Dioxide 24 BUN 44 H Creatinine 5.30 H Glucose 123 H Calcium 7.5 L Liver Function 09/22/16 Range/Units 03:10 Total Bilirubin 0.3 (0.2-1.2) mg/dL AST 24 (5-34) Units/L ALT 17 (0-55) Units/L Alkaline Phosphatase 161 H (38-126) Units/L Albumin 1.8 L (3.5-5.0) g/dL - ABG Interpretation ABG results: ABG ABG pH 7.35 pH Units (7.32-7.45) 09/18/16 01:00 ABG pCO2 28 mmHg (35-45) L 09/18/16 01:00 ABG pO2 86 mmHg (85-104) 09/18/16 01:00 ABG O2 Saturation 96 % (95-98) 09/18/16 01:00 PT/INR, D-dimer PT 12.1 Seconds (9.4-12.1) 09/11/16 22:01 D-Dimer 1094 ng/mLFEU (0-500) H 09/11/16 22:01 Consult Discharge Plan - Plan Referrals: Sidra Cesar MD [Non-Partnered Physician] - 09/28/16 11:00 am
--- NOTE | 2016-09-22 16:58 | Urology Progress Note ---
Date of Encounter: 09/22/16 Time of Encounter: 16:56 - Assessment and Plan (1) Left ureteral stone Current Visit: Yes Status: Acute Assessment and plan: She has done well with the stent in place. We will continue this for now. I had a discussion with her friend/family member at the bedside regarding the stents. I answered all their questions. Once she is discharged, we will coordinate follow-up in order to schedule her for left ureteroscopy. (2) UTI (urinary tract infection) Current Visit: No Status: Acute Assessment and plan: She has been on antibiotic for 10 days. I would continue a treatment for a total of 14 days. Qualifiers: Urinary tract infection type: acute cystitis Hematuria presence: without hematuria Qualified Code(s): N30.00 - Acute cystitis without hematuria (3) DOC (acute kidney injury) Current Visit: No Status: Acute Assessment and plan: Appreciate nephrology recommendations. Progress Note Narrative: 61-year-old woman status post left renal stent placement on September 12, 2016. She had renal insufficiency afterwards. She is doing well today. Her renal function is improving. Objective Initial Vital Signs Temp Pulse Resp BP Pulse Ox 98.8 F 106 16 137/83 96 09/11/16 20:45 09/11/16 20:45 09/11/16 20:45 09/11/16 20:45 09/11/16 20:45 - General physical appearance Present: well developed, well nourished, no distress - Respiratory Present: normal respiratory effort - Abdomen Present: soft - Genitourinary Urine Appearance: Present: Clear - Labs 09/22/16 03:10 09/22/16 03:10 Diabetes panel 09/22/16 Range/Units 03:10 Sodium 137 (136-145) mEq/L Potassium 3.5 (3.5-4.5) mEq/L Chloride 99 (98-109) mEq/L Carbon Dioxide 24 (19-29) mEq/L BUN 44 H (7-20) mg/dL Creatinine 5.30 H (0.57-1.11) mg/dL Glucose 123 H (70-99) mg/dL Calcium 7.5 L (8.6-10.8) mg/dL AST 24 (5-34) Units/L ALT 17 (0-55) Units/L Alkaline Phosphatase 161 H (38-126) Units/L Albumin 1.8 L (3.5-5.0) g/dL Calcium panel 09/22/16 Range/Units 03:10 Calcium 7.5 L (8.6-10.8) mg/dL Albumin 1.8 L (3.5-5.0) g/dL Pituitary panel 09/22/16 Range/Units 03:10 Sodium 137 (136-145) mEq/L Potassium 3.5 (3.5-4.5) mEq/L Chloride 99 (98-109) mEq/L Carbon Dioxide 24 (19-29) mEq/L BUN 44 H (7-20) mg/dL Creatinine 5.30 H (0.57-1.11) mg/dL Glucose 123 H (70-99) mg/dL Calcium 7.5 L (8.6-10.8) mg/dL Adrenal panel 09/22/16 Range/Units 03:10 Sodium 137 (136-145) mEq/L Potassium 3.5 (3.5-4.5) mEq/L Chloride 99 (98-109) mEq/L Carbon Dioxide 24 (19-29) mEq/L BUN 44 H (7-20) mg/dL Creatinine 5.30 H (0.57-1.11) mg/dL Glucose 123 H (70-99) mg/dL Calcium 7.5 L (8.6-10.8) mg/dL Total Bilirubin 0.3 (0.2-1.2) mg/dL AST 24 (5-34) Units/L ALT 17 (0-55) Units/L Alkaline Phosphatase 161 H (38-126) Units/L Albumin 1.8 L (3.5-5.0) g/dL Consult Discharge Plan - Plan Referrals: Sidra Cesar MD [Non-Partnered Physician] - 09/28/16 11:00 am
[2016-09-22] MEDS: *HR* OxyCODONE/APAP 5/325 TABLET PO PRN (20:24)
[2016-09-23 04:22] LABS: Potassium 3.6 mEq/L (3.5-4.5)
[2016-09-23 05:05] LABS: Hematocrit 27.2 % (35.3-44.9); Mean Corpuscular HGB Conc 33.1 g/dL (31.6-35.5); Mean Corpuscular Hemoglobin 33.5 pg (28.0-33.3); Mean Corpuscular Volume 101.1 fL (83.0-100.0); Mean Platelet Volume 9.3 fL (9.4-12.4); Platelet Count 197 K/mcL (140-400); Red Blood Count 2.69 M/mcL (3.82-4.97)
[2016-09-23 05:27] LABS: Lymphocytes # 0.8 K/mcL (0.6-4.6); Monocytes # 0.3 K/mcL (0.0-1.3)
[2016-09-23 05:28] LABS: Anisocytosis 1+ (Not Present); Dohle Bodies Present (Not Present); Macrocytosis Present (Not Present); Platelet Estimate Normal (Normal); Polychromasia 1+ (Not Present)
[2016-09-23] MEDS: Cholestyramine 4 GM POWD.PACK PO SCH ×2 (08:10→20:58)
[2016-09-23] MEDS: BuPROPion XL (24 HR) 150 MG TABLET PO SCH (08:10)
[2016-09-23] MEDS: Magnesium Oxide 400 MG TABLET PO SCH (08:10)
[2016-09-23] MEDS: Insulin LISPRO 300 UNITS/3 ML VIAL SQ SCH ×4 (08:11→21:01)
[2016-09-23] MEDS: Insulin DETEMIR 100 UNIT/ML X5UNITS SQ SCH ×2 (08:57→20:58)
[2016-09-23] MEDS: Heparin 25,000 UNIT/500 ML D5W 25,000 UNIT/500 ML MLS IVC SCH (10:09)
--- NOTE | 2016-09-23 11:24 | Nephrology Progress Note ---
Date of Encounter: 09/23/16 Time of Encounter: 11:17 - Assessment and Plan (1) DOC (acute kidney injury) Current Visit: No Status: Acute DOC secondary to combination of contrast nephropathy, NSAIDs, left-sided hydronephrosis from ureteral stone and UTI with bacteremia -HOld metformin and NSAIDs, ureteral stent in place -Creatinine is improving. Urine output documented as 5.1 L yesterday, suspect is not accurate d.w nurse to document urine output accurately -Repeat renal panel in a.m. -MEDS reviewed, decrease gabapentin to 300 mg TID (2) Hypomagnesemia Current Visit: Yes Status: Acute Continue magnesium supplements, repeat electrolytes in a.m. (3) Essential hypertension Current Visit: Yes Status: Acute BP stable currently not on BP meds., (4) DVT (deep venous thrombosis) Current Visit: No Status: Chronic eamon lower ext DVT. mild peripheral edema. cont IV heparin Qualifiers: DVT location: lower extremity Affected thrombotic vein of extremity: femoral Laterality: bilateral Chronicity: unspecified Qualified Code(s): I82.413 - Acute embolism and thrombosis of femoral vein, bilateral Subjective Principal diagnosis: Follow-up of acute kidney injury Interval history: Stable overnight, feels tired. Taking by mouth well. Sister at bedside Objective - Vital Signs Vital signs: Vital Signs Temp Pulse Resp BP Pulse Ox 09/23/16 08:00 99.5 F 84 16 122/77 93 L 09/23/16 04:18 98.7 F 89 17 124/76 98 09/22/16 23:21 99.0 F 84 18 130/68 98 09/22/16 19:52 99.6 F 96 16 135/73 93 L 09/22/16 14:00 97.7 F 91 18 118/70 95 Intake and Output 09/22/16 09/23/16 09/23/16 23:59 07:59 15:59 Intake Total 890 / 890 500 / 500 120 / 120 Output Total 1250 / 1250 500 / 500 300 / 300 Balance -360 / -360 0 / 0 -180 / -180 Intake: IV Fluids 500 / 500 500 / 500 Heparin 25,000 UNIT/500 500 / 500 500 / 500 ML D5W 25,000 unit In 500 ml @ 14 UNIT/KG/HR 33. 022 mls/hr IVC .Q15H9M DOC Rx#:[id number] Oral 390 / 390 120 / 120 Output: Urine 350 / 350 300 / 300 Catheter 900 / 900 500 / 500 Other: Meal Dinner Breakfast Percent of Meal Consumed 25% 80% Stool Size Moderate Moderate Stool Consistency formed soft formed Stool Color Brown Brown # Bowel Movements 1 1 Weight 127.006 kg Blood Glucose* 198 124 Patient Weight 09/23/16 23:59 Weight 127.006 kg - General Appearance Exam: CVS; s1s2 present, regular, no murmurs RESP; decreased air entry, clear to auscultation ABD; soft, NT, BS present, no organomegaly, no bruits EXT; 1+ edema, DP pulses palpable. [employer]; alert oriented -3, CN grossly intact - Lab 09/23/16 03:55 09/23/16 03:55 Most recent lab results ABG pH 7.35 pH Units (7.32-7.45) 09/18/16 01:00 ABG pCO2 28 mmHg (35-45) L 09/18/16 01:00 ABG pO2 86 mmHg (85-104) 09/18/16 01:00 ABG HCO3 15.5 mEQ/L (21-27) L 09/18/16 01:00 ABG O2 Saturation 96 % (95-98) 09/18/16 01:00 Calcium 8.0 mg/dL (8.6-10.8) L 09/23/16 03:55 Magnesium 0.9 mg/dL (1.6-2.6) L 09/22/16 03:10 Consult Discharge Plan - Plan Referrals: Sidra Cesar MD [Non-Partnered Physician] - 09/28/16 11:00 am
[2016-09-23] MEDS ORDERED: Gabapentin 300 MG CAPSULE PO SCH (11:37)
[2016-09-23] MEDS ORDERED: Magnesium Sulfate 2 GM in D5% in Water 100 ML IVPB ONE (12:01)
--- NOTE | 2016-09-23 12:05 | Internal Med Progress Note ---
Date of Encounter: 09/23/16 Time of Encounter: 09:00 - Assessment and plan (1) DOC (acute kidney injury) Current Visit: No Status: Acute Assessment and plan: Improved Cr level. Good urine output. Had US renal which shows no obstruction. Will hold metformin and NSAID. F/U renal function. Nephrology consult recommendation is highly appreciated and will be followed. (2) Ureterolithiasis Current Visit: Yes Status: Acute Assessment and plan: Had urology procedure done. (3) Hydronephrosis Current Visit: Yes Status: Acute Assessment and plan: Patient has hydronephrosis, which is caused by ureteral stone. Urology on case and did the stenting. Resolved after stent. Qualifiers: Hydronephrosis type: with ureteral calculous obstruction Qualified Code(s) : N13.2 - Hydronephrosis with renal and ureteral calculous obstruction (4) CAD (coronary artery disease) Current Visit: Yes Status: Acute Assessment and plan: Stable. Continue home medication. Qualifiers: Coronary Disease-Associated Artery/Lesion type: [place] artery [place] vs. transplanted heart: [place] heart Associated angina: without angina Qualified Code(s): I25.10 - Atherosclerotic heart disease of [place] coronary artery without angina pectoris (5) Breast cancer in female Current Visit: No Status: Acute Assessment and plan: Patient was diagnosed breast cancer. She had a surgery in December 2015. She has been following oncology in [place] Qualifiers: Breast location: unspecified site of breast Laterality: right Qualified Code(s): C50.911 - Malignant neoplasm of unspecified site of right female breast (6) Diabetes Current Visit: No Status: Acute Assessment and plan: We will cover patient with a sliding scale. Glucose level is stable on insulin dose to medium correction dose HS, High correction dose AC. Change basal insulin levemir 15 units BID. Patient was not on insulin use before, go over her lab previously her sugar level is not well controlled. She will possibly need a long-term insulin upon discharge. Consult tire layer. Qualifiers: Diabetes mellitus type: type 2 Diabetes mellitus complication status: without complication Diabetes mellitus half-way insulin use: without half-way use Qualified Code(s): E11.9 - Type 2 diabetes mellitus without complications (7) DVT (deep venous thrombosis) Current Visit: No Status: Chronic Assessment and plan: Patient was reported DVT. She has history of DVT and was on Eliquis. Keep patient on heparin drip for now. Oncology consult appreciated. Will switch back to eliquis later when her kidney function is getting better. Patient is at high risk because she is on heparin drip, which needed close monitoring. Qualifiers: DVT location: lower extremity Affected thrombotic vein of extremity: femoral Laterality: bilateral Chronicity: unspecified Qualified Code(s): I82.413 - Acute embolism and thrombosis of femoral vein, bilateral (8) Urinary tract infection Current Visit: No Status: Resolved Assessment and plan: Urine culture shows Salmonella. On rocephin per sensitivity. Qualifiers: Urinary tract infection type: acute cystitis Qualified Code(s): N30.00 - Acute cystitis without hematuria (9) DVT prophylaxis Current Visit: Yes Status: Acute Assessment and plan: Patient is on heparin drip for now. (10) Bacteremia Current Visit: Yes Status: Acute Assessment and plan: Blood culture positive for Salmonella. On rocephin per sensitivity. Repeat blood culture negative. Patient has a port on the left chest, no skin erythema , edema, or tenderness, blood culture from the catheter negative, less likely catheter infection, will keep the catheter. However, will give prolonged antibiotic treatment because of blood cx positive (7-14 days). Pt does not meet criteria for sepsis. (11) Altered mental status Current Visit: Yes Status: Acute Assessment and plan: Patient is more alert and oriented today as long as renal function has improved. Her calcium level is not high. Discussed with the family and the patient, they agreed do not have MRI brain now, possibly outpatient if her PCP thinks it is necessary. Qualifiers: Altered mental status type: transient alteration of awareness Qualified Code(s): R40.4 - Transient alteration of awareness (12) Encephalopathy acute Current Visit: Yes Status: Acute Assessment and plan: Patient has acute altered mental status, consider encephalopathy caused by metabolic disorders. Mental status improved now. (13) Anemia due to acute blood loss Current Visit: Yes Status: Acute Assessment and plan: Patient is on heparin drip and had a urology procedure, always has trace hematuria, hemoglobin gradually get down, consider anemia caused by blood loss. Hemoglobin improved after 1 unit of blood. (14) Hypomagnesemia Current Visit: Yes Status: Acute (15) Hypomagnesemia Current Visit: Yes Status: Acute Assessment and plan: Will give her magnesium supplement, follow up magnesium level. - Time Spent With Patient Greater than 35 minutes - Subjective Interval history: Patient is a 61-year-old female admitted for left flank pain. She was found left ureteral stone. Her past medical history is significant for asthma, breast cancer, CHF, COPD, CAD, diabetes, fibromyalgia, hyperlipidemia, hypertension, osteoporosis, thyroid disease. Patient was seen and examined. She is generalized weak but more alert, awake today. Oriented x 3. She has No nausea or vomiting. No abd pain. Vitals stable. renal function keep improving with good urine output. We will continue to monitor renal function. Low magnesium level, will give magnesium 2g IV once. - Constitutional Vitals: Temp Pulse Resp BP Pulse Ox 97.7 F 73 16 118/71 98 09/23/16 11:00 09/23/16 11:00 09/23/16 11:00 09/23/16 11:00 09/23/16 11:00 General appearance: Present: A&O X 3, morbidly obese, no acute distress - Head Head exam: Present: atraumatic, normocephalic - Eye Eye exam: Present: PERRL, conjuntiva pink, sclera anicteric Pupils: Present: PERRL - Neck Neck exam general surgery: Present: supple, trachea midline. Absent: lymphadenopathy - Respiratory Respiratory exam: Present: CTAB. Absent: accessory muscle use, rales, rhonchi, wheezes - Cardiovascular Cardiovascular exam: Present: RRR, +S1, +S2. Absent: diastolic murmur, gallop, rubs, systolic murmur - GI/Abdominal GI/Abdominal exam: Present: normal bowel sounds, soft, no peritoneal signs. Absent: distended, tenderness - Extremities Exam Extremities exam: Present: warm, radial pulses palpable and symetrical. Absent : calf tenderness, cyanotic, pedal edema - Neurological Exam Neurological exam: Present: CN II-XII intact, oriented X3, no focal deficits. Absent: pronater drift, facial droop, speech deficit - Skin Skin exam: Present: dry, intact Internal Medicine: Result - Labs CBC & Chem 7: 09/23/16 03:55 09/23/16 03:55 Labs: Short CBC 09/23/16 Range/Units 03:55 WBC 8.3 (4.3-11.1) K/mcL Hgb 9.0 L (11.5-15.4) g/dL Hct 27.2 L (35.3-44.9) % Plt Count 197 (140-400) K/mcL Neutrophils # 7.0 (1.6-8.9) K/mcL BMP 09/23/16 03:55 Sodium 141 Potassium 3.6 Chloride 103 Carbon Dioxide 25 BUN 36 H Creatinine 3.67 H Glucose 112 H Calcium 8.0 L - ABG Interpretation ABG results: ABG ABG pH 7.35 pH Units (7.32-7.45) 09/18/16 01:00 ABG pCO2 28 mmHg (35-45) L 09/18/16 01:00 ABG pO2 86 mmHg (85-104) 09/18/16 01:00 ABG O2 Saturation 96 % (95-98) 09/18/16 01:00 PT/INR, D-dimer PT 12.1 Seconds (9.4-12.1) 09/11/16 22:01 D-Dimer 1094 ng/mLFEU (0-500) H 09/11/16 22:01 Consult Discharge Plan - Plan Referrals: Sidra Cesar MD [Non-Partnered Physician] - 09/28/16 11:00 am
[2016-09-23] MEDS: Ondansetron 4 MG/2 ML VIAL IV PRN (13:42)
[2016-09-24] MEDS: Heparin 25,000 UNIT/500 ML D5W 25,000 UNIT/500 ML MLS IVC SCH (00:31)
[2016-09-24 04:29] LABS: Basophils # 0.1 K/mcL (0.0-0.2); Basophils % 0.8 %; Eosinophils # 0.1 K/mcL (0.0-0.6); Eosinophils % 1.7 %; Hemoglobin 8.9 g/dL (11.5-15.4); Immature Granulocytes % 4.6 % (0-4); Lymphocytes # 1.1 K/mcL (0.6-4.6); Lymphocytes % 15.8 %; Mean Corpuscular Hemoglobin 33.3 pg (28.0-33.3); Mean Corpuscular Volume 101.1 fL (83.0-100.0); Monocytes # 0.7 K/mcL (0.0-1.3); Monocytes % 10.1 %; Neutrophils # 4.8 K/mcL (1.6-8.9); Platelet Count 166 K/mcL (140-400); Red Blood Count 2.67 M/mcL (3.82-4.97); Red Cell Distribution Width 15.5 % (11.5-14.5)
[2016-09-24 04:51] LABS: Activated Partial Thrombo Time 207.9 Seconds (26.0-36.0)
[2016-09-24 05:02] LABS: Calcium 8.3 mg/dL (8.6-10.8); Magnesium 1.2 mg/dL (1.6-2.6); Phosphorous 4.6 mg/dL (2.3-4.7); Potassium 3.7 mEq/L (3.5-4.5)
[2016-09-24 05:26] LABS: Heparin anti-factor XA UFH 0.46 IU/mL (0.30-0.70)
[2016-09-24] MEDS: Magnesium Oxide 400 MG TABLET PO SCH (08:27)
[2016-09-24] MEDS: APIXABAN 5 MG TABLET PO SCH ×2 (08:27→21:22)
[2016-09-24] MEDS: Cholestyramine 4 GM POWD.PACK PO SCH ×2 (08:28→21:22)
[2016-09-24] MEDS: BuPROPion XL (24 HR) 150 MG TABLET PO SCH (08:28)
[2016-09-24] MEDS: Insulin LISPRO 300 UNITS/3 ML VIAL SQ SCH ×4 (08:28→21:22)
[2016-09-24] MEDS: Insulin DETEMIR 100 UNIT/ML X5UNITS SQ SCH ×2 (10:40→21:23)
[2016-09-24] MEDS ORDERED: Magnesium Sulfate 2 GM in D5% in Water 100 ML IVPB ONE (10:56)
--- NOTE | 2016-09-24 10:56 | Internal Med Progress Note ---
Date of Encounter: 09/24/16 Time of Encounter: 09:00 - Assessment and plan (1) DOC (acute kidney injury) Current Visit: No Status: Acute Assessment and plan: Improved Cr level. Good urine output. Had US renal which shows no obstruction. Will hold metformin and NSAID. F/U renal function. Nephrology consult recommendation is highly appreciated and will be followed. (2) Ureterolithiasis Current Visit: Yes Status: Acute Assessment and plan: Had urology procedure done. (3) Hydronephrosis Current Visit: Yes Status: Acute Assessment and plan: Patient has hydronephrosis, which is caused by ureteral stone. Urology on case and did the stenting. Resolved after stent. Qualifiers: Hydronephrosis type: with ureteral calculous obstruction Qualified Code(s) : N13.2 - Hydronephrosis with renal and ureteral calculous obstruction (4) CAD (coronary artery disease) Current Visit: Yes Status: Acute Assessment and plan: Stable. Continue home medication. Qualifiers: Coronary Disease-Associated Artery/Lesion type: [place] artery [place] vs. transplanted heart: [place] heart Associated angina: without angina Qualified Code(s): I25.10 - Atherosclerotic heart disease of [place] coronary artery without angina pectoris (5) Breast cancer in female Current Visit: No Status: Acute Assessment and plan: Patient was diagnosed breast cancer. She had a surgery in December 2015. She has been following oncology in [place] Qualifiers: Breast location: unspecified site of breast Laterality: right Qualified Code(s): C50.911 - Malignant neoplasm of unspecified site of right female breast (6) Diabetes Current Visit: No Status: Acute Assessment and plan: We will cover patient with a sliding scale. Glucose level is stable on insulin dose to medium correction dose HS, High correction dose AC. Change basal insulin levemir 15 units BID. Patient was not on insulin use before, go over her lab previously her sugar level is not well controlled. She will possibly need a long-term insulin upon discharge. Consult software educator. Qualifiers: Diabetes mellitus type: type 2 Diabetes mellitus complication status: without complication Diabetes mellitus senior care insulin use: without senior care use Qualified Code(s): E11.9 - Type 2 diabetes mellitus without complications (7) DVT (deep venous thrombosis) Current Visit: No Status: Chronic Assessment and plan: Patient was reported DVT. She has history of DVT and was on Eliquis. Oncology consult appreciated. Will switch back to eliquis and DC heparin drip today. Qualifiers: DVT location: lower extremity Affected thrombotic vein of extremity: femoral Laterality: bilateral Chronicity: unspecified Qualified Code(s): I82.413 - Acute embolism and thrombosis of femoral vein, bilateral (8) Urinary tract infection Current Visit: No Status: Resolved Assessment and plan: Urine culture shows Salmonella. On rocephin per sensitivity. Qualifiers: Urinary tract infection type: acute cystitis Qualified Code(s): N30.00 - Acute cystitis without hematuria (9) DVT prophylaxis Current Visit: Yes Status: Acute Assessment and plan: Patient is on Eliquis. (10) Bacteremia Current Visit: Yes Status: Acute Assessment and plan: Blood culture positive for Salmonella. On rocephin per sensitivity. Repeat blood culture negative. Patient has a port on the left chest, no skin erythema , edema, or tenderness, blood culture from the catheter negative, less likely catheter infection, will keep the catheter. However, will give prolonged antibiotic treatment because of blood cx positive (7-14 days). Pt does not meet criteria for sepsis. (11) Altered mental status Current Visit: Yes Status: Acute Assessment and plan: Patient is more alert and oriented today as long as renal function has improved. Her calcium level is not high. Discussed with the family and the patient, they agreed do not have MRI brain now, possibly outpatient if her PCP thinks it is necessary. Qualifiers: Altered mental status type: transient alteration of awareness Qualified Code(s): R40.4 - Transient alteration of awareness (12) Encephalopathy acute Current Visit: Yes Status: Acute Assessment and plan: Patient has acute altered mental status, consider encephalopathy caused by metabolic disorders. Mental status improved now. (13) Anemia due to acute blood loss Current Visit: Yes Status: Acute Assessment and plan: Patient is on heparin drip and had a urology procedure, always has trace hematuria, hemoglobin gradually get down, consider anemia caused by blood loss. Hemoglobin improved after 1 unit of blood. (14) Hypomagnesemia Current Visit: Yes Status: Acute (15) Hypomagnesemia Current Visit: Yes Status: Acute Assessment and plan: Will give her magnesium supplement, follow up magnesium level. - Time Spent With Patient 25 - 35 minutes - Subjective Interval history: Patient is a 61-year-old female admitted for left flank pain. She was found left ureteral stone. Her past medical history is significant for asthma, breast cancer, CHF, COPD, CAD, diabetes, fibromyalgia, hyperlipidemia, hypertension, osteoporosis, thyroid disease. Patient was seen and examined. She is generalized weak but more alert, awake today. Oriented x 3. She has No nausea or vomiting. No abd pain. Vitals stable. renal function keep improving with good urine output, Cr 2.78. We will continue to monitor renal function. Resume Eliquis 5 mg twice a day and stop heparin drip today. Still Low magnesium level, will give magnesium 2g IV once. - Constitutional Vitals: Temp Pulse Resp BP Pulse Ox 98.9 F 76 18 147/82 93 L 09/24/16 07:00 09/24/16 07:00 09/24/16 07:00 09/24/16 07:00 09/24/16 07:00 General appearance: Present: A&O X 3, morbidly obese, no acute distress - Head Head exam: Present: atraumatic, normocephalic - Eye Eye exam: Present: PERRL, conjuntiva pink, sclera anicteric Pupils: Present: PERRL - Neck Neck exam general surgery: Present: supple, trachea midline. Absent: lymphadenopathy - Respiratory Respiratory exam: Present: CTAB. Absent: accessory muscle use, rales, rhonchi, wheezes - Cardiovascular Cardiovascular exam: Present: RRR, +S1, +S2. Absent: diastolic murmur, gallop, rubs, systolic murmur - GI/Abdominal GI/Abdominal exam: Present: normal bowel sounds, soft, no peritoneal signs. Absent: distended, tenderness - Extremities Exam Extremities exam: Present: calf tenderness (Mild calf tenderness bilaterally), pedal edema (Moderate pedal edema bilaterally), warm, radial pulses palpable and symetrical. Absent: cyanotic - Neurological Exam Neurological exam: Present: CN II-XII intact, oriented X3, no focal deficits. Absent: pronater drift, facial droop, speech deficit - Skin Skin exam: Present: dry, intact Internal Medicine: Result - Labs CBC & Chem 7: 09/24/16 04:00 09/24/16 04:00 Labs: Short CBC 09/24/16 Range/Units 04:00 WBC 7.2 (4.3-11.1) K/mcL Hgb 8.9 L (11.5-15.4) g/dL Hct 27.0 L (35.3-44.9) % Plt Count 166 (140-400) K/mcL Neutrophils # 4.8 (1.6-8.9) K/mcL BMP 09/24/16 04:00 Sodium 140 Potassium 3.7 Chloride 103 Carbon Dioxide 24 BUN 28 H Creatinine 2.78 H Glucose 152 H Calcium 8.3 L Liver Function 09/24/16 Range/Units 04:00 Albumin 2.0 L (3.5-5.0) g/dL - ABG Interpretation ABG results: ABG ABG pH 7.35 pH Units (7.32-7.45) 09/18/16 01:00 ABG pCO2 28 mmHg (35-45) L 09/18/16 01:00 ABG pO2 86 mmHg (85-104) 09/18/16 01:00 ABG O2 Saturation 96 % (95-98) 09/18/16 01:00 PT/INR, D-dimer PT 12.1 Seconds (9.4-12.1) 09/11/16 22:01 D-Dimer 1094 ng/mLFEU (0-500) H 09/11/16 22:01 Consult Discharge Plan - Plan Referrals: Sidra Cesar MD [Non-Partnered Physician] - 09/28/16 11:00 am
--- NOTE | 2016-09-24 11:09 | Nephrology Progress Note ---
Date of Encounter: 09/24/16 Time of Encounter: 11:05 - Assessment and Plan (1) DOC (acute kidney injury) Current Visit: No Status: Acute DOC secondary to combination of contrast nephropathy, NSAIDs, left-sided hydronephrosis from ureteral stone and UTI with bacteremia. Metformin and NSAIDs DC'd, ureteral stent was placed to urology service -Cr continues to trend down, improve Urine output 2.1 L . (2) Hypomagnesemia Current Visit: Yes Status: Acute To receive IV magnesium sulfate. (3) DVT (deep venous thrombosis) Current Visit: No Status: Chronic eamon lower ext DVT with peripheral edema. IV heparin changed to Eliquis today Qualifiers: DVT location: lower extremity Affected thrombotic vein of extremity: femoral Laterality: bilateral Chronicity: unspecified Qualified Code(s): I82.413 - Acute embolism and thrombosis of femoral vein, bilateral Subjective Principal diagnosis: Follow-up of acute kidney injury Interval history: feels better this morning. denies pain Objective - Vital Signs Vital signs: Vital Signs Temp Pulse Resp BP Pulse Ox 09/24/16 07:00 98.9 F 76 18 147/82 93 L 09/24/16 04:03 98.8 F 72 18 124/77 98 09/24/16 00:20 98.8 F 79 18 119/78 96 09/23/16 20:30 95 09/23/16 19:58 98.5 F 67 18 129/73 95 09/23/16 15:00 98.2 F 67 18 146/78 94 L Intake and Output 09/23/16 09/24/16 09/24/16 23:59 07:59 15:59 Intake Total 300 / 300 773 / 773 240 / 240 Output Total 600 / 600 1400 / 1400 Balance -300 / -300 -627 / -627 240 / 240 Intake: IV Fluids 653 / 653 Heparin 25,000 UNIT/500 653 / 653 ML D5W 25,000 unit In 500 ml @ 14 UNIT/KG/HR 33. 022 mls/hr IVC .[id number] [facility] Rx#:[id number] Oral 300 / 300 120 / 120 240 / 240 Output: Catheter 600 / 600 1400 / 1400 Other: Meal Dinner Breakfast Percent of Meal Consumed 60% 100% Stool Size Small Stool Consistency formed Stool Characteristics Normal for Patient Stool Color Brown # Bowel Movements 1 Blood Glucose* 156 156 - General Appearance Exam: CVS; s1s2 present, regular, no murmurs RESP; decreased air entry, clear to auscultation ABD; soft, NT, BS present EXT; 2+ edema, DP pulses palpable. 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
[2016-09-25 03:16] LABS: Basophils # 0.1 K/mcL (0.0-0.2); Basophils % 0.8 %; Eosinophils # 0.1 K/mcL (0.0-0.6); Eosinophils % 2.2 %; Hematocrit 27.3 % (35.3-44.9); Hemoglobin 8.8 g/dL (11.5-15.4); Immature Granulocytes % 4.4 % (0-4); Lymphocytes % 16.2 %; Mean Corpuscular HGB Conc 32.2 g/dL (31.6-35.5); Mean Corpuscular Hemoglobin 32.8 pg (28.0-33.3); Mean Corpuscular Volume 101.9 fL (83.0-100.0); Mean Platelet Volume 8.7 fL (9.4-12.4); Monocytes # 0.6 K/mcL (0.0-1.3); Monocytes % 10.8 %; Neutrophils # 3.9 K/mcL (1.6-8.9); Platelet Count 155 K/mcL (140-400); Red Blood Count 2.68 M/mcL (3.82-4.97); Red Cell Distribution Width 15.2 % (11.5-14.5); Segmented Neutrophils % 65.6 %
[2016-09-25 03:29] LABS: Calcium 9.1 mg/dL (8.6-10.8); Magnesium 1.4 mg/dL (1.6-2.6); Phosphorous 4.2 mg/dL (2.3-4.7)
[2016-09-25] MEDS ORDERED: Magnesium Sulfate 2 GM in D5% in Water 100 ML IVPB ONE (07:57)
--- NOTE | 2016-09-25 08:12 | Event Note ---
Date of Encounter: 09/25/16 Time of Encounter: 08:11 The patient voices no complaints. The patient's renal function continues to improve. Urine output is excellent. Nephrology will sign off. I suspect the patient will continue to experience improving renal function returned to her previous baseline levels. Please call again if needed.
[2016-09-25] MEDS: APIXABAN 5 MG TABLET PO SCH ×2 (08:49→21:30)
[2016-09-25] MEDS: Magnesium Oxide 400 MG TABLET PO SCH (08:49)
[2016-09-25] MEDS: BuPROPion XL (24 HR) 150 MG TABLET PO SCH (08:49)
[2016-09-25] MEDS: Insulin LISPRO 300 UNITS/3 ML VIAL SQ SCH ×4 (08:49→21:30)
[2016-09-25] MEDS: Cholestyramine 4 GM POWD.PACK PO SCH ×2 (08:49→21:30)
[2016-09-25] MEDS: Insulin DETEMIR 100 UNIT/ML X5UNITS SQ SCH ×2 (08:54→21:31)
--- NOTE | 2016-09-25 16:27 | Internal Med Progress Note ---
Date of Encounter: 09/25/16 Time of Encounter: 09:00 - Assessment and plan (1) DOC (acute kidney injury) Current Visit: No Status: Acute Assessment and plan: Improved Cr level. Good urine output. Had US renal which shows no obstruction. Will hold metformin and NSAID. F/U renal function. Nephrology consult recommendation is highly appreciated and will be followed. (2) Ureterolithiasis Current Visit: Yes Status: Acute Assessment and plan: Had urology procedure done. Urology is on case. Patient will follow-up with urology as outpatient. (3) Hydronephrosis Current Visit: Yes Status: Acute Assessment and plan: Patient has hydronephrosis, which is caused by ureteral stone. Urology on case and did the stenting. Resolved after stent. Qualifiers: Hydronephrosis type: with ureteral calculous obstruction Qualified Code(s) : N13.2 - Hydronephrosis with renal and ureteral calculous obstruction (4) CAD (coronary artery disease) Current Visit: Yes Status: Acute Assessment and plan: Stable. Continue home medication. Qualifiers: Coronary Disease-Associated Artery/Lesion type: [place] artery [place] vs. transplanted heart: [place] heart Associated angina: without angina Qualified Code(s): I25.10 - Atherosclerotic heart disease of [place] coronary artery without angina pectoris (5) Breast cancer in female Current Visit: No Status: Acute Assessment and plan: Patient was diagnosed breast cancer. She had a surgery in December 2015. She has been following oncology in [place] Qualifiers: Breast location: unspecified site of breast Laterality: right Qualified Code(s): C50.911 - Malignant neoplasm of unspecified site of right female breast (6) Diabetes Current Visit: No Status: Acute Assessment and plan: We will cover patient with a sliding scale. Glucose level is stable on insulin dose to medium correction dose HS, High correction dose AC. Change basal insulin levemir 15 units BID. Patient was not on insulin use before, go over her lab previously her sugar level is not well controlled. She will possibly need a long-term insulin upon discharge. Consult adult educator. Qualifiers: Diabetes mellitus type: type 2 Diabetes mellitus complication status: without complication Diabetes mellitus technician terminal and repeater insulin use: without senior living use Qualified Code(s): E11.9 - Type 2 diabetes mellitus without complications (7) DVT (deep venous thrombosis) Current Visit: No Status: Chronic Assessment and plan: Patient was reported DVT. She has history of DVT and was on Eliquis. Oncology consult appreciated. Considering patient's missing Eliquis dose probably is the reason of recurrent DVT, recommended to switch back to Eliquis. Will switch back to eliquis and DC heparin drip. Qualifiers: DVT location: lower extremity Affected thrombotic vein of extremity: femoral Laterality: bilateral Chronicity: unspecified Qualified Code(s): I82.413 - Acute embolism and thrombosis of femoral vein, bilateral (8) Urinary tract infection Current Visit: No Status: Resolved Assessment and plan: Urine culture shows Salmonella. Treated with rocephin per sensitivity. Finished the 14 day course. Qualifiers: Urinary tract infection type: acute cystitis Qualified Code(s): N30.00 - Acute cystitis without hematuria (9) DVT prophylaxis Current Visit: Yes Status: Acute Assessment and plan: Patient is on Eliquis. (10) Bacteremia Current Visit: Yes Status: Acute Assessment and plan: Blood culture positive for Salmonella. On rocephin per sensitivity. Repeat blood culture negative. Patient has a port on the left chest, no skin erythema , edema, or tenderness, blood culture from the catheter negative, less likely catheter infection, will keep the catheter. However, will give prolonged antibiotic treatment because of blood cx positive (7-14 days). DC Rocephin today after finish a 14 day course. Pt does not meet criteria for sepsis. (11) Altered mental status Current Visit: Yes Status: Acute Assessment and plan: Patient is more alert and oriented today as long as renal function has improved. Her calcium level is not high. Today patient and the family said that they would like to have her MRI to rule out brain metastasis. MRI brain has ordered. Qualifiers: Altered mental status type: transient alteration of awareness Qualified Code(s): R40.4 - Transient alteration of awareness (12) Encephalopathy acute Current Visit: Yes Status: Acute Assessment and plan: Patient has acute altered mental status, consider encephalopathy caused by metabolic disorders. Mental status improved now. MRI brain ordered (13) Anemia due to acute blood loss Current Visit: Yes Status: Acute Assessment and plan: Patient is on heparin drip and had a urology procedure, always has trace hematuria, hemoglobin gradually get down, consider anemia caused by blood loss. Hemoglobin improved after 1 unit of blood. MCV high, will follow vitamin B12 and folic acid level. (14) Hypomagnesemia Current Visit: Yes Status: Acute Assessment and plan: Will give her magnesium supplement, follow up magnesium level. - Time Spent With Patient 25 - 35 minutes - Subjective Interval history: Patient is a 61-year-old female admitted for left flank pain. She was found left ureteral stone. Her past medical history is significant for asthma, breast cancer, CHF, COPD, CAD, diabetes, fibromyalgia, hyperlipidemia, hypertension, osteoporosis, thyroid disease. Patient was seen and examined. She is generalized weak but alert, awake , Oriented x 3. She has No nausea or vomiting. No abd pain. Vitals stable. renal function keep improving with good urine output, Cr 2.13. We will continue to monitor renal function. Resume Eliquis 5 mg twice a day and stop heparin drip. Still Low magnesium level, will give magnesium 2g IV once. MCV high, will check a vitamin B12 and folic acid level. Antibiotic has been used for 14 days , DC antibiotics today. DC Ortiz, monitor patient's urination. Will order an MRI today to rule out brain metastasis. - Constitutional Vitals: Temp Pulse Resp BP Pulse Ox 98.8 F 77 18 156/95 93 L 09/25/16 15:04 09/25/16 15:04 09/25/16 15:04 09/25/16 15:04 09/25/16 15:04 General appearance: Present: A&O X 3, morbidly obese, no acute distress - Head Head exam: Present: atraumatic, normocephalic - Eye Eye exam: Present: PERRL, conjuntiva pink, sclera anicteric Pupils: Present: PERRL - Neck Neck exam general surgery: Present: supple, trachea midline. Absent: lymphadenopathy - Respiratory Respiratory exam: Present: CTAB. Absent: accessory muscle use, rales, rhonchi, wheezes - Cardiovascular Cardiovascular exam: Present: RRR, +S1, +S2. Absent: diastolic murmur, gallop, rubs, systolic murmur - GI/Abdominal GI/Abdominal exam: Present: normal bowel sounds, soft, no peritoneal signs. Absent: distended, tenderness - Extremities Exam Extremities exam: Present: calf tenderness, pedal edema, warm, radial pulses palpable and symetrical. Absent: cyanotic - Neurological Exam Neurological exam: Present: CN II-XII intact, oriented X3, no focal deficits. Absent: pronater drift, facial droop, speech deficit - Skin Skin exam: Present: dry, intact Internal Medicine: Result - Labs CBC & Chem 7: 09/25/16 03:00 09/25/16 03:00 Labs: Short CBC 09/25/16 Range/Units 03:00 WBC 5.9 (4.3-11.1) K/mcL Hgb 8.8 L (11.5-15.4) g/dL Hct 27.3 L (35.3-44.9) % Plt Count 155 (140-400) K/mcL Neutrophils # 3.9 (1.6-8.9) K/mcL BMP 09/25/16 03:00 Sodium 142 Potassium 4.0 Chloride 106 Carbon Dioxide 25 BUN 22 H Creatinine 2.13 H Glucose 109 H Calcium 9.1 Liver Function 09/25/16 Range/Units 03:00 Albumin 2.0 L (3.5-5.0) g/dL - ABG Interpretation ABG results: ABG ABG pH 7.35 pH Units (7.32-7.45) 09/18/16 01:00 ABG pCO2 28 mmHg (35-45) L 09/18/16 01:00 ABG pO2 86 mmHg (85-104) 09/18/16 01:00 ABG O2 Saturation 96 % (95-98) 09/18/16 01:00 PT/INR, D-dimer PT 12.1 Seconds (9.4-12.1) 09/11/16 22:01 D-Dimer 1094 ng/mLFEU (0-500) H 09/11/16 22:01 Consult Discharge Plan - Plan Referrals: Sidra Cesar MD [Non-Partnered Physician] - 09/28/16 11:00 am
[2016-09-25] MEDS: Ondansetron 4 MG/2 ML VIAL IV PRN (20:56)
[2016-09-26 04:32] LABS: Basophils % 0.6 %; Eosinophils # 0.1 K/mcL (0.0-0.6); Eosinophils % 1.9 %; Hematocrit 27.2 % (35.3-44.9); Hemoglobin 8.6 g/dL (11.5-15.4); Immature Granulocytes % 3.2 % (0-4); Lymphocytes % 19.6 %; Mean Corpuscular HGB Conc 31.6 g/dL (31.6-35.5); Mean Corpuscular Hemoglobin 32.3 pg (28.0-33.3); Mean Corpuscular Volume 102.3 fL (83.0-100.0); Mean Platelet Volume 8.6 fL (9.4-12.4); Monocytes # 0.6 K/mcL (0.0-1.3); Monocytes % 11.5 %; Neutrophils # 3.4 K/mcL (1.6-8.9); Platelet Count 142 K/mcL (140-400); Red Blood Count 2.66 M/mcL (3.82-4.97); Red Cell Distribution Width 14.8 % (11.5-14.5); Segmented Neutrophils % 63.2 %
[2016-09-26 04:50] LABS: Potassium 3.9 mEq/L (3.5-4.5)
[2016-09-26 04:51] LABS: Calcium 9.3 mg/dL (8.6-10.8); Magnesium 1.3 mg/dL (1.6-2.6)
[2016-09-26] MEDS: Ondansetron 4 MG/2 ML VIAL IV PRN ×2 (05:46→17:27)
[2016-09-26] MEDS: (Alendronate Sodium [Alendronate Sodium] 70 MG) PO SCH (05:50)
[2016-09-26 06:34] LABS: Folate 13.3 ng/mL (7.0-31.4)
[2016-09-26] MEDS: Insulin LISPRO 300 UNITS/3 ML VIAL SQ SCH ×4 (08:18→21:56)
[2016-09-26] MEDS: BuPROPion XL (24 HR) 150 MG TABLET PO SCH (08:36)
[2016-09-26] MEDS: APIXABAN 5 MG TABLET PO SCH ×2 (08:36→21:05)
[2016-09-26] MEDS: Magnesium Oxide 400 MG TABLET PO SCH (08:36)
[2016-09-26] MEDS: Cholestyramine 4 GM POWD.PACK PO SCH ×2 (08:37→21:05)
[2016-09-26] MEDS ORDERED: Magnesium Sulfate 2 GM in D5% in Water 100 ML IVPB ONE (09:17)
[2016-09-26] MEDS: Insulin DETEMIR 100 UNIT/ML X5UNITS SQ SCH ×2 (11:15→21:05)
--- NOTE | 2016-09-26 15:49 | Internal Med Progress Note ---
Date of Encounter: 09/26/16 Time of Encounter: 15:46 - Assessment and plan (1) DOC (acute kidney injury) Current Visit: No Status: Acute Assessment and plan: Improved Cr level. Good urine output. Had US renal which shows no obstruction. Will hold metformin and NSAID. F/U renal function. Nephrology consult recommendation is highly appreciated, nephro signed off. (2) Hypomagnesemia Current Visit: Yes Status: Acute Assessment and plan: Will give her IV magnesium supplement, follow up magnesium level. (3) CAD (coronary artery disease) Current Visit: Yes Status: Acute Assessment and plan: Stable. Continue home medication. Qualifiers: Coronary Disease-Associated Artery/Lesion type: [place] artery [place] vs. transplanted heart: [place] heart Associated angina: without angina Qualified Code(s): I25.10 - Atherosclerotic heart disease of [place] coronary artery without angina pectoris (4) Ureterolithiasis Current Visit: Yes Status: Acute Assessment and plan: Had urology procedure done. Urology is on case. Patient will follow-up with urology as outpatient. (5) Breast cancer in female Current Visit: No Status: Acute Assessment and plan: Patient was diagnosed breast cancer. She had a surgery in December 2015. She has been following oncology in [place]. MRI done without ocntrst, could not identify brain mets. Recommends to follow up in a few weeks, discussed with patient and nephew. Qualifiers: Breast location: unspecified site of breast Laterality: right Qualified Code(s): C50.911 - Malignant neoplasm of unspecified site of right female breast (6) DVT (deep venous thrombosis) Current Visit: No Status: Chronic Assessment and plan: Patient was reported DVT. She has history of DVT and was on Eliquis. Oncology consult appreciated. Considering patient's missing Eliquis dose probably is the reason of recurrent DVT, recommended to switch back to Eliquis. Will continue with eliquis. Possible discharge tomorrow if stable. Qualifiers: DVT location: lower extremity Affected thrombotic vein of extremity: femoral Laterality: bilateral Chronicity: unspecified Qualified Code(s): I82.413 - Acute embolism and thrombosis of femoral vein, bilateral - Time Spent With Patient 25 - 35 minutes - Subjective Interval history: This is my first encounter with the patient. Patient feeling better than yesterday, no confusion. Her nephew is at bedside during this encounter. No nausea, no diarrhea. No chest pain. - Constitutional Vitals: Temp Pulse Resp BP Pulse Ox 98.4 F 72 15 158/85 96 09/26/16 11:49 09/26/16 11:49 09/26/16 11:49 09/26/16 11:49 09/26/16 11:49 General appearance: Present: A&O X 3, morbidly obese, no acute distress - Head Head exam: Present: atraumatic, normocephalic - Eye Eye exam: Present: PERRL, conjuntiva pink, sclera anicteric Pupils: Present: PERRL - Neck Neck exam general surgery: Present: supple, trachea midline. Absent: lymphadenopathy - Respiratory Respiratory exam: Present: CTAB. Absent: accessory muscle use, rales, rhonchi, wheezes - Cardiovascular Cardiovascular exam: Present: RRR, +S1, +S2. Absent: diastolic murmur, gallop, rubs, systolic murmur - GI/Abdominal GI/Abdominal exam: Present: normal bowel sounds, soft, no peritoneal signs. Absent: distended, tenderness - Extremities Exam Extremities exam: Present: warm, radial pulses palpable and symetrical. Absent : calf tenderness, cyanotic, pedal edema - Neurological Exam Neurological exam: Present: CN II-XII intact, oriented X3, no focal deficits. Absent: pronater drift, facial droop, speech deficit - Skin Skin exam: Present: dry, intact Internal Medicine: Result - Labs CBC & Chem 7: 09/26/16 04:10 09/26/16 04:10 Labs: Short CBC 09/26/16 Range/Units 04:10 WBC 5.3 (4.3-11.1) K/mcL Hgb 8.6 L (11.5-15.4) g/dL Hct 27.2 L (35.3-44.9) % Plt Count 142 (140-400) K/mcL Neutrophils # 3.4 (1.6-8.9) K/mcL BMP 09/26/16 04:10 Sodium 142 Potassium 3.9 Chloride 107 Carbon Dioxide 25 BUN 18 Creatinine 1.70 H Glucose 114 H Calcium 9.3 - ABG Interpretation ABG results: ABG ABG pH 7.35 pH Units (7.32-7.45) 09/18/16 01:00 ABG pCO2 28 mmHg (35-45) L 09/18/16 01:00 ABG pO2 86 mmHg (85-104) 09/18/16 01:00 ABG O2 Saturation 96 % (95-98) 09/18/16 01:00 PT/INR, D-dimer PT 12.1 Seconds (9.4-12.1) 09/11/16 22:01 D-Dimer 1094 ng/mLFEU (0-500) H 09/11/16 22:01 - Impressions Impressions Brain MRI 09/25/16 14:41 IMPRESSION: 1. No intravenous contrast was administered due to the patient's GFR of 24. This limits evaluation for intracranial metastatic disease. 2. Development of T2 hyperintense lesions within the cerebellar hemispheres bilaterally. Diagnostic considerations would include metastatic lesions or perhaps subacute infarcts. Suggest a short-term follow-up examination in 4-6 weeks. 3. Global parenchymal volume loss with chronic microvascular ischemic change. 4. No acute infarcts seen. D/ / León Kaminski MD / León Kaminski MD Interpreting Provider: León Kaminski MD Consult Discharge Plan - Plan Referrals: Sidra Cesar MD [Non-Partnered Physician] -
[2016-09-26] MEDS ORDERED: Magnesium Sulfate 1 GM in D5% in Water 100 ML IVPB ONE ×2 (16:00→22:00)
[2016-09-27] MEDS: Ondansetron 4 MG/2 ML VIAL IV PRN (03:26)
[2016-09-27] MEDS: Acetaminophen 325 MG TABLET PO PRN (05:27)
[2016-09-27] MEDS: Insulin LISPRO 300 UNITS/3 ML VIAL SQ SCH ×2 (07:58→12:28)
[2016-09-27 09:29] LABS: Basophils % 0.7 %; Eosinophils # 0.1 K/mcL (0.0-0.6); Eosinophils % 2.2 %; Hematocrit 27.8 % (35.3-44.9); Hemoglobin 8.8 g/dL (11.5-15.4); Immature Granulocytes % 1.9 % (0-4); Immature Platelets 1.1 % (1.1-6.1); Lymphocytes # 1.1 K/mcL (0.6-4.6); Mean Corpuscular HGB Conc 31.7 g/dL (31.6-35.5); Mean Corpuscular Hemoglobin 32.1 pg (28.0-33.3); Mean Corpuscular Volume 101.5 fL (83.0-100.0); Mean Platelet Volume 8.3 fL (9.4-12.4); Monocytes # 0.7 K/mcL (0.0-1.3); Neutrophils # 3.4 K/mcL (1.6-8.9); Platelet Count 194 K/mcL (140-400); Red Blood Count 2.74 M/mcL (3.82-4.97); Red Cell Distribution Width 14.8 % (11.5-14.5); Segmented Neutrophils % 62.2 %
[2016-09-27 09:41] LABS: Calcium 9.1 mg/dL (8.6-10.8); Magnesium 1.8 mg/dL (1.6-2.6); Potassium 3.9 mEq/L (3.5-4.5)
[2016-09-27] MEDS: APIXABAN 5 MG TABLET PO SCH (10:40)
[2016-09-27] MEDS: Insulin DETEMIR 100 UNIT/ML X5UNITS SQ SCH (10:40)
[2016-09-27] MEDS: BuPROPion XL (24 HR) 150 MG TABLET PO SCH (10:40)
[2016-09-27] MEDS: Magnesium Oxide 400 MG TABLET PO SCH (10:40)
[2016-09-27] MEDS: Cholestyramine 4 GM POWD.PACK PO SCH (10:41)
--- NOTE | 2016-09-27 11:40 | Discharge Summary ---
Date of Encounter: 09/27/16 Time of Encounter: 11:37 - Discharge Diagnosis (1) DOC (acute kidney injury) Priority: Primary Status: Acute (2) Hypomagnesemia Priority: Secondary Status: Acute (3) CAD (coronary artery disease) Priority: Secondary Status: Acute Qualifiers: Coronary Disease-Associated Artery/Lesion type: [place] artery [place] vs. transplanted heart: [place] heart Associated angina: without angina Qualified Code(s): I25.10 - Atherosclerotic heart disease of [place] coronary artery without angina pectoris (4) Ureterolithiasis Priority: Secondary Status: Acute (5) Breast cancer in female Priority: Secondary Status: Acute Qualifiers: Breast location: unspecified site of breast Laterality: right Qualified Code(s): C50.911 - Malignant neoplasm of unspecified site of right female breast (6) DVT (deep venous thrombosis) Priority: Secondary Status: Chronic Qualifiers: DVT location: lower extremity Affected thrombotic vein of extremity: femoral Laterality: bilateral Chronicity: unspecified Qualified Code(s): I82.413 - Acute embolism and thrombosis of femoral vein, bilateral - Discharge Medications Prescriptions: Apixaban [Eliquis] 5 mg PO BID #60 tablet Home Medications: Alendronate Sodium 70 mg PO QWEEK 09/12/16 [History] BuPROPion SR (12 HR) [Wellbutrin SR] 150 mg PO DAILY 09/12/16 [History] Cholestyramine (with Sugar) [Cholestyramine Bulk Powder] 1 each PO BID 09/12/16 [History] Citalopram Hydrobromide [Citalopram HBr] 20 mg PO BID 09/12/16 [History] Diphenoxylate HCl/Atropine [Diphenoxylate-Atrop 2.5-0.025] 1 cap PO Q4H PRN 06/19 [History] Etodolac 400 mg PO BID PRN 09/12/16 [History] Gabapentin 800 mg PO TID 09/12/16 [History] Magnesium Oxide [Magnesium] 400 mg PO DAILY 09/12/16 [History] Metformin HCl [Metformin HCl ER] 500 mg PO BID 09/12/16 [History] Omeprazole [PriLOSEC] 20 mg PO DAILY 09/12/16 [History] OxyCODONE/APAP 5/325 [Percocet 5/325 MG] 1 tab PO Q4H PRN 09/12/16 [History] Pantoprazole Sodium [Protonix] 40 mg PO BID 09/12/16 [History] Phenazopyridine [Pyridium] 100 mg PO TID PRN 09/12/16 [History] Pravastatin Sodium 40 mg PO DAILY 09/12/16 [History] Zolpidem [Ambien] 10 mg PO HS PRN 09/12/16 [History] Apixaban [Eliquis] 5 mg PO BID #60 tablet 09/27/16 [Rx] Allergies/Adverse Reactions: Allergies codeine Allergy (Verified 08/30/16 12:06) Vomiting Sulfa (Sulfonamide Antibiotics) Allergy (Verified 08/30/16 12:06) Hives Hydromorphone [From Dilaudid] Adverse Reaction (Verified 08/30/16 12:06) Hypotension morphine Adverse Reaction (Verified 08/30/16 12:06) Difficulty Breathing Procedures/tests Complete & Pending: Procedures Performed prior 72 hours Category Date Time Status MR head/brain wo con [MR] Stat MRI 09/25/16 14:41 Completed Date of admission: 09/12/16 03:56 Primary care physician: PCP NO Consults: 09/12/16 04:54 Consult to Urology [CONS] Routine Consulting Provider: [facility] Reason for Consult: obstructive left renal stones Call Completed: No 09/12/16 14:34 Consult to Oncology Hematology [CONS] Routine Consulting Provider: Aaron Batista Reason for Consult: B/L DVT although on anticoagulation Call Completed: Yes 09/14/16 07:42 Consult to Nephrology [CONS] Stat Consulting Provider: [facility] Reason for Consult: DOC Call Completed: No 09/14/16 07:47 Consult to Staffing Director [CONS] Routine Reason for SW Consult: discharge planning, used to have [facility]; patient family would like patient to go to rehab and family would like to talk to social work today 09/25/16 09/14/16 16:48 Consult to Pastoral Services [CONS] Routine Comment: 09/22/16 14:25 Consult to Occupational Therapy [CONS] Routine Comment: Evaluate, develop and implement POC Consult to Physical Therapy [CONS] Routine Comment: Evaluate, develop and implement POC 09/23/16 12:06 Consult to Finance Business Partner [CONS] Routine Comment: Discharging clinician: Bam Lucas Anticipated date of discharge: 09/27/16 - Patient Status Disposition: Transfer SNF Condition: Fair Functional capacity at discharge: uses cane/walker Overall status at discharge: patient is progressing back to baseline - Discharge Instructions Follow Up With: Sidra Cesar MD [Non-Partnered Physician] - Forms: ED Satisfaction Letter, Work/School Release - Diet and Activity Activity: as per physical therapy Diet: advance to your usual diet Interval History: Ms. Dutta is a 61 year old female with PMH significant for previous DVTs, DM, hypothyroidism, breast cancer, HLD, GERD, CHF, COPD, and CAD presented to the emergency department for left kidney pain. She states that the pain started 2 weeks ago with associated symptoms of burning with urination, increased urinary frequency and urinary urgency. She states she has had frequent UTIs in the past. She denies any history of renal stones. She reports intermittent alternating diarrhea and constipation, but states this is chronic. Her left renal pain is described as dull with occasional sharp characteristics and radiates to her groin. She denies chest pain but states that she has felt short of breath. This patient currently has breast cancer with right mastectomy and schedule tumor removal this coming Sunday with scheduled radiation therapy afterwards. She states she was previously on chemotherapy and her most recent dose was in July. The patient is on Eliquis for her history of DVTs, but states she hasn't taken it the past two days due to her friend not being able to pick it up for her. She has not missed any doses prior to that. She does note some increased swelling bilaterally in her lower extremities, but denies any weight change in the past two weeks. Hospital course: Ms. Dutta is a 61 year old female admitted due to kidney stones, status post stent placed by urology. Also found with bilateral DVT. The patient has a history of DVT and was on eliquis. However the patient missed doses of anticoagulation. Evaluation by hematology was obtained, recommended to resume eliquis. The complication during this admission was an acute kidney injury which has improved with IV fluids. Additionally, the patient presented some confusion, likely due to medications. However an MRI was obtained, which did not differentiate between metastatic disease or infarct, of note the MRI was obtained without IV contrast. The patient follows with an oncologist in [place] at [facility]. She will follow-up with Dr. Martines as outpatient. According to the evaluation by physical therapy, the patient would benefit from placement in an inpatient rehabilitation Center. During the admission, the patient presented Hypomagnesemia along with hypokalemia both have been supplemented. Hemoglobin Is stable, no fever, no leukocytosis. Urine culture was positive for salmonella, she received treatment accordingly. The patient is stable, she will be discharged today to subacute rehabilitation center. She verbally expressed understanding. - Time Spent with Patient Total time spent providing and/or coordinating discharge services: Greater than 30 minutes - Constitutional Vitals: Temp Pulse Resp BP Pulse Ox 98.0 F 74 16 166/90 93 L 09/27/16 06:37 09/27/16 06:37 09/27/16 06:37 09/27/16 06:37 09/27/16 08:53 General appearance: Present: A&O X 3, morbidly obese, no acute distress - Head Head exam: Present: atraumatic, normocephalic - Eye Eye exam: Present: PERRL, conjuntiva pink, sclera anicteric Pupils: Present: PERRL - Neck Neck exam general surgery: Present: supple, trachea midline. Absent: lymphadenopathy - Respiratory Respiratory exam: Present: CTAB. Absent: accessory muscle use, rales, rhonchi, wheezes - Cardiovascular Cardiovascular exam: Present: RRR, +S1, +S2. Absent: diastolic murmur, gallop, rubs, systolic murmur - GI/Abdominal GI/Abdominal exam: Present: normal bowel sounds, soft, no peritoneal signs. Absent: distended, tenderness - Extremities Exam Extremities exam: Present: warm, radial pulses palpable and symetrical. Absent : calf tenderness, cyanotic, pedal edema - Neurological Exam Neurological exam: Present: CN II-XII intact, oriented X3, no focal deficits. Absent: pronater drift, facial droop, speech deficit - Skin Skin exam: Present: dry, intact
--- NOTE | 2016-09-27 11:45 | Physician Discharge Referral ---
ExtendedCare Referral Info Transfer To: SNF Institutional Level of Care: Skilled - Diagnosis (1) DOC (acute kidney injury) Status: Acute (2) Hypomagnesemia Status: Acute (3) CAD (coronary artery disease) Status: Acute (4) Ureterolithiasis Status: Acute (5) Breast cancer in female Status: Acute (6) DVT (deep venous thrombosis) Status: Chronic - Transfer Medications Prescriptions: Apixaban [Eliquis] 5 mg PO BID #60 tablet Home Medications: Alendronate Sodium 70 mg PO QWEEK 09/12/16 [History] BuPROPion SR (12 HR) [Wellbutrin SR] 150 mg PO DAILY 09/12/16 [History] Cholestyramine (with Sugar) [Cholestyramine Bulk Powder] 1 each PO BID 09/12/16 [History] Citalopram Hydrobromide [Citalopram HBr] 20 mg PO BID 09/12/16 [History] Diphenoxylate HCl/Atropine [Diphenoxylate-Atrop 2.5-0.025] 1 cap PO Q4H PRN 06/19 [History] Etodolac 400 mg PO BID PRN 09/12/16 [History] Gabapentin 800 mg PO TID 09/12/16 [History] Magnesium Oxide [Magnesium] 400 mg PO DAILY 09/12/16 [History] Metformin HCl [Metformin HCl ER] 500 mg PO BID 09/12/16 [History] Omeprazole [PriLOSEC] 20 mg PO DAILY 09/12/16 [History] OxyCODONE/APAP 5/325 [Percocet 5/325 MG] 1 tab PO Q4H PRN 09/12/16 [History] Pantoprazole Sodium [Protonix] 40 mg PO BID 09/12/16 [History] Phenazopyridine [Pyridium] 100 mg PO TID PRN 09/12/16 [History] Pravastatin Sodium 40 mg PO DAILY 09/12/16 [History] Zolpidem [Ambien] 10 mg PO HS PRN 09/12/16 [History] Apixaban [Eliquis] 5 mg PO BID #60 tablet 09/27/16 [Rx] Allergies/Adverse Reactions: Allergies codeine Allergy (Verified 08/30/16 12:06) Vomiting Sulfa (Sulfonamide Antibiotics) Allergy (Verified 08/30/16 12:06) Hives Hydromorphone [From Dilaudid] Adverse Reaction (Verified 08/30/16 12:06) Hypotension morphine Adverse Reaction (Verified 08/30/16 12:06) Difficulty Breathing - Respiratory Orders Smoking Cessation: Smoking cessation has been advised. For more information, call the [place] Tobacco Quit Line at 8-654-DSAG-NOW. - Advance Directives Code Status: Full Code - Mobility Orders Ambulate - Rehabiliation Orders Rehab Potential: Fair Rehab Orders: ROM Exercises, Evaluation for Physical Therapy, Evaluation for Occupational Therapy - Diet Orders Regular CERTIFICATION: I certify that the transfer of the above named patient to an Extended Care Facility is necessary for the continuing treatment of the diagnosis listed. The above information is true and accurate reflection of patient's current condition. Confidential - Redisclosure prohibited without a patient's written consent.
[2016-09-27 12:03] VITALS: BP 125/78
== END 2016-09-27 14:38 | DRG 693 ==
LOC: EMEROO 20:29 → SUATTDRO 09-12 03:56 → 3ANU 09-12 03:56
PROVIDERS: ADMIT Family Medicine; ATTEND Internal Medicine